=== PATIENT | male | born 1975 | race Caucasian/White ===

== ENCOUNTER 2022-04-26 09:53 | Emergency (ER) | payer SELFPAY ==
[~2022-04-26] VITALS: Ht 177.8 cm; Wt 148.2 kg
--- NOTE | 2022-04-26 10:26 | ED General ---
General Chief Complaint: General Problems/Pain Stated Complaint: WEAKNESS,FATIGUE Nursing Triage Note: PT AMB TO [facility] 6 WITH FATHER. PT STATED THAT HE HAS BEEN FATIGUED SINCE THE BEGIN OF SUMMER. PT STATED THAT HE HAS HAD SOB FOR A COUPLE WEEKS. Source of Information: Patient Exam Limitations: No Limitations History of Present Illness Date Seen by Provider: Apr 26, 2022 Time Seen by Provider: 10:00 Initial Comments 46-year-old male with no pertinent past medical history (does not see a doctor, so unsure of medical problems) coming in due to generalized fatigue which is constant, worsening, nothing seems to make better or worse. Is been going on for a couple months. Over the past couple weeks has developed increasing dyspnea as well which is worse with exertion. His father has noted that he has been falling asleep while driving, while sitting at dinner, and at seemingly random times. He denies any chest pain, fever, abdominal pain, nausea, vomiting, diarrhea, focal weakness or numbness, headache, or any other concerns. He says he believes he has gained around 10 pounds since the of summer. Is otherwise denying any other acute complaints. Does not take any medicines daily because he does not see a doctor. He endorses snoring at night and waking up multiple times overnight. He has regular brown stools and denies any bleeding that he knows of. Allergies and Home Medications Allergies Coded Allergies: No Known Drug Allergies (Unverified , 04/26/22) Patient Home Medication List Home Medication List Reviewed: Yes Review of Systems Review of Systems Constitutional: No fever EENTM: No blurred vision Respiratory: No cough; short of breath Cardiovascular: No chest pain Gastrointestinal: No abdominal pain Genitourinary: no symptoms reported Musculoskeletal: no symptoms reported Skin: no symptoms reported Psychiatric/Neurological: No Symptoms Reported Hematologic/Lymphatic: No Symptoms Reported Immunological/Allergic: no symptoms reported All Other Systems Reviewed Negative Unless Noted: Yes Past Tsrpchk-Lckcfh-Xwaxcq Hx Patient Social History Tobacco Use?: No Substance use?: No Alcohol Use?: Yes Alcohol Frequency: Once in a while Pt feels they are or have been: Unable to obtain Immunizations Up To Date Influenza Vaccine Up-to-Date: No; Not Current Physical Exam Vital Signs Vital Signs - First Documented 04/26/22 04/26/22 10:02 10:16 Temp 36.6 Pulse 83 Resp 18 B/P (MAP) 171/105 (127) Pulse Ox 93 O2 Delivery Nasal Cannula O2 Flow Rate 2.00 Capillary Refill : Less Than 3 Seconds Height, Weight, BMI Height: '" Weight: lbs. oz. kg; 46.00 BMI Method: General Appearance: No Apparent Distress, WD/WN Eyes: Bilateral Eye Normal Inspection HEENT: PERRL/EOMI, Normal ENT Inspection, Pharynx Normal Neck: Full Range of Motion, Normal Inspection, Non Tender, Supple Respiratory: Chest Non Tender, No Accessory Muscle Use, No Respiratory Distress, Other (difficult to hear clear breath sounds due to body habitus, no obvious wheezing) Cardiovascular: Regular Rate, Rhythm, Normal Peripheral Pulses Gastrointestinal: Normal Bowel Sounds, Non Tender, Soft; No Distended, No Guarding Back: Normal Inspection, No CVA Tenderness Extremity: Normal Capillary Refill, Normal Range of Motion, Non Tender, No Calf Tenderness, Pedal Edema Neurologic/Psychiatric: Alert, No Motor/Sensory Deficits, Normal Mood/Affect Skin: Normal Color, Warm/Dry Lymphatic: No Adenopathy Progress/Results/Core Measures Suspected Sepsis SIRS Temperature: Pulse: 83 Respiratory Rate: 18 Laboratory Tests 04/26/22 10:30: White Blood Count 8.1 Blood Pressure 171 /105 Mean: 127 Laboratory Tests 04/26/22 10:30: Creatinine 1.01, INR Comment 1.0, Platelet Count 243, Total Bilirubin 0.8 Results/Orders Lab Results Laboratory Tests Test 04/26/22 10:30 04/26/22 10:40 Range/Units White Blood Count 8.1 4.3-11.0 10^3/uL Red Blood Count 5.40 4.30-5.52 10^6/uL Hemoglobin 14.4 13.3-17.7 g/dL Hematocrit 48 40-54 % Mean Corpuscular Volume 88 80-99 fL Mean Corpuscular Hemoglobin 27 25-34 pg Mean Corpuscular Hemoglobin Concent 30 L 32-36 g/dL Red Cell Distribution Width 15.1 H 10.0-14.5 % Platelet Count 243 130-400 10^3/uL Mean Platelet Volume 9.6 9.0-12.2 fL Immature Granulocyte % (Auto) 0 % Neutrophils (%) (Auto) 65 42-75 % Lymphocytes (%) (Auto) 28 12-44 % Monocytes (%) (Auto) 5 0-12 % Eosinophils (%) (Auto) 1 0-10 % Basophils (%) (Auto) 1 0-10 % Neutrophils # (Auto) 5.2 1.8-7.8 10^3/uL Lymphocytes # (Auto) 2.3 1.0-4.0 10^3/uL Monocytes # (Auto) 0.4 0.0-1.0 10^3/uL Eosinophils # (Auto) 0.1 0.0-0.3 10^3/uL Basophils # (Auto) 0.0 0.0-0.1 10^3/uL Immature Granulocyte # (Auto) 0.0 0.0-0.1 10^3/uL Prothrombin Time 14.0 12.2-14.7 SEC INR Comment 1.0 0.8-1.4 Activated Partial Thromboplast Time 27 24-35 SEC D-Dimer 1.04 H 0.00-0.49 UG/ML Sodium Level 146 H 135-145 MMOL/L Potassium Level 4.0 3.6-5.0 MMOL/L Chloride Level 102 98-107 MMOL/L Carbon Dioxide Level 34 H 21-32 MMOL/L Anion Gap 10 5-14 MMOL/L Blood Urea Nitrogen 12 7-18 MG/DL Creatinine 1.01 0.60-1.30 MG/DL Estimat Glomerular Filtration Rate 93 BUN/Creatinine Ratio 12 Glucose Level 101 70-105 MG/DL Calcium Level 9.0 8.5-10.1 MG/DL Corrected Calcium 9.1 8.5-10.1 MG/DL Magnesium Level 2.2 1.6-2.4 MG/DL Total Bilirubin 0.8 0.1-1.0 MG/DL Aspartate Amino Transf (AST/SGOT) 20 5-34 U/L Alanine Aminotransferase (ALT/SGPT) 42 0-55 U/L Alkaline Phosphatase 79 40-136 U/L Troponin I < 0.028 <0.028 NG/ML B-Type Natriuretic Peptide 395.5 H <100.0 PG/ML Total Protein 6.9 6.4-8.2 GM/DL Albumin 3.9 3.2-4.5 GM/DL Lipase 19 8-78 U/L Influenza Type A (RT-PCR) Not Detected Not Detecte Influenza Type B (RT-PCR) Not Detected Not Detecte SARS-CoV-2 RNA (RT-PCR) Not Detected Not Detecte My Orders Orders - DIONICIO KELLY MD Bnp Pan (04/26/22 10:22) Influenza A And B By Pcr (04/26/22 10:22) Cbc With Automated Diff (04/26/22 10:22) Magnesium (04/26/22 10:22) Ekg Tracing (04/26/22 10:22) Comprehensive Metabolic Panel (04/26/22 10:22) Protime With Inr (04/26/22 10:22) Partial Thromboplastin Time (04/26/22 10:22) O2 (04/26/22 10:22) Monitor-Rhythm Ecg Trace Only (04/26/22 10:22) Ed Iv/Invasive Line Start (04/26/22 10:22) Lipase (04/26/22 10:22) Fibrin Degradation Products (04/26/22 10:22) Troponin I Pan (04/26/22 10:22) Covid 19 Inhouse Test (04/26/22 10:22) Ct Angio Chest W (04/26/22 11:18) Iohexol Injection (Omnipaque 350 Mg/Ml 1 (04/26/22 11:30) Ns (Ivpb) (Sodium Chloride 0.9% Ivpb Bag (04/26/22 11:30) Medications Given in ED Current Medications Medications Dose Ordered Sig/Sneha Route Start Time Stop Time Status Last Admin Dose Admin Iohexol 100 ml ONCE ONCE IV 04/26/22 11:30 04/26/22 11:31 DC 04/26/22 11:40 88 ML Sodium Chloride 100 ml ONCE ONCE IV 04/26/22 11:30 04/26/22 11:31 DC 04/26/22 11:40 70 ML Vital Signs/I&O 04/26/22 04/26/22 04/26/22 10:02 10:02 10:16 Temp 36.6 Pulse 83 Resp 18 B/P (MAP) 171/105 (127) Pulse Ox 93 O2 Delivery Nasal Cannula Nasal Cannula Nasal Cannula O2 Flow Rate 2.00 2.00 2.00 Capillary Refill : Less Than 3 Seconds Blood Pressure Mean: 127 Progress Note : Progress Note 46-year-old male with above history coming in due to fatigue, falling asleep easily on the day, and short of breath. ABCs were intact and vitals were stable on presentation although there was a moment he was mildly hypoxic to roughly 88%. This did resolve on its own. I personally ambulated the patient and his oxygen went up to 98%. Hemoglobin is normal, troponin negative, BNP only slightly elevated but no other signs of heart failure. EKG with no acute ischemic changes. D-dimer positive so CT chest was obtained and does have a small pleural effusion but not significant enough to cause any symptoms. I believe he suffers from sleep apnea that is undiagnosed since he does not have a PCP. He likely also has obesity hypoventilation. I will give him information on how to follow-up with [facility] since he does not have insurance ECG Initial ECG Impression Date: Apr 26, 2022 Initial ECG Impression Time: 10:36 Initial ECG Rate: 69 Initial ECG Rhythm: Normal Sinus Comment Narrow QRS, normal axis, no significant ST changes, T wave flattening in the precordial leads Diagnostic Imaging Diagonstic Imaging: CT Plain Films/CT/US/NM/MRI: chest Comments [facility], [place] NAME: TEO YOST Bob [facility] REC#: [id number] PT STATUS: REG ER : 1975 PHYSICIAN: DIONICIO KELLY MD ADMIT DATE: 04/26/22/ER Signed Date of Exam:04/26/22 CT ANGIO CHEST W EXAMINATION: CT angiography of the chest. TECHNIQUE: Contrast enhanced thin section helical images were obtained through the chest with intravenous contrast timed for the optimal opacification of the arterial structures per CTA protocol. Post-processing, reconstructions and interpretation of angiographic images of the vessels was performed. 3D MIP reconstructions were performed and reviewed. All CT scans use one or more of the following dose optimizing techniques: automated exposure control, MA and/or KvP adjustment based on a patient size and exam type, or iterative reconstruction. HISTORY: SOB, hypoxic, positive dimer COMPARISON: None available. FINDINGS: Vascular: No filling defects within the pulmonary arteries. Thoracic aorta is normal in caliber. Thyroid: The thyroid is normal. Mediastinum: Heart size is normal without significant pericardial effusion. No suspicious lymphadenopathy. Lungs and airways: No consolidation or pneumothorax. There is atelectasis within the dependent lungs. Trace bilateral pleural effusions. The airways are normal. Upper abdomen: The subphrenic structures are normal. Musculoskeletal: Degenerative changes of the spine without suspicious osseous lesion or compression fracture. IMPRESSION: 1. No findings of pulmonary embolus or other acute abnormality in the chest. 2. Trace bilateral pleural effusions with adjacent atelectasis. Dictated by: Dictated on workstation # [id number] Dict: 04/26/22 1145 Trans: 04/26/22 1156 [id number] [id number] Interpreted by: FARTUN GREENBERG DO Electronically signed by: FARTUN GREENBERG DO 04/26/22 1156 Departure Impression Primary Impression: Sleep apnea in adult Additional Impression: Obesity hypoventilation syndrome Disposition: HOME, SELF-CARE Condition: Stable Departure-Patient Inst. Decision time for Depature: 12:14 Referrals: [facility]/TASNEEM POWERS,LOCAL PHYSICIAN (PCP) Primary Care Physician Patient Instructions: Sleep Apnea (DC) Add. Discharge Instructions: I believe you have sleep apnea. Follow-up with [facility] to get established because your blood pressure was also high today. Discuss with them the symptoms you are having. You had a CT of your chest in the emergency department and it was negative for any type of blood clot. Your cardiac work-up was also unremarkable for any type of heart attack Work/School Note: Work Release Form Date Seen in the Emergency Department: Apr 26, 2022 Return to Work: Apr 27, 2022 Restrictions: No Restrictions DIONICIO KELLY MD Apr 26, 2022 10:26
[2022-04-26 10:41] LABS: BASOPHILS % (AUTO) 1 % (0-10); EOSINOPHILS # (AUTO) 0.1 10^3/uL (0.0-0.3); EOSINOPHILS % (AUTO) 1 % (0-10); HEMATOCRIT 48 % (40-54); HEMOGLOBIN 14.4 g/dL (13.3-17.7); LYMPHOCYTES # (AUTO) 2.3 10^3/uL (1.0-4.0); LYMPHOCYTES % (AUTO) 28 % (12-44); MEAN CORPUSCULAR HEMOGLOBIN 27 pg (25-34); MEAN CORPUSCULAR HGB CONC 30 g/dL (32-36); MEAN CORPUSCULAR VOLUME 88 fL (80-99); MEAN PLATELET VOLUME 9.6 fL (9.0-12.2); MONOCYTES # (AUTO) 0.4 10^3/uL (0.0-1.0); MONOCYTES % (AUTO) 5 % (0-12); NEUTROPHILS # (AUTO) 5.2 10^3/uL (1.8-7.8); NEUTROPHILS % (AUTO) 65 % (42-75); PLATELET COUNT 243 10^3/uL (130-400); WHITE BLOOD COUNT 8.1 10^3/uL (4.3-11.0)
[2022-04-26 10:53] LABS: ALBUMIN 3.9 GM/DL (3.2-4.5)
[2022-04-26 10:55] LABS: TOTAL PROTEIN 6.9 GM/DL (6.4-8.2)
[2022-04-26 10:57] LABS: BILIRUBIN,TOTAL 0.8 MG/DL (0.1-1.0)
[2022-04-26 10:59] LABS: CREATININE SERUM 1.01 MG/DL (0.60-1.30)
[2022-04-26 11:02] LABS: MAGNESIUM 2.2 MG/DL (1.6-2.4)
[2022-04-26] MEDS ORDERED: NS 100 ML (IVPB) BAG IV ONE ×2 (11:30)
[2022-04-26] MEDS ORDERED: IOHEXOL 350 MG/ML 100 ML (OMNIPAQUE 350) VIAL IV ONE ×2 (11:30)
[2022-04-26] MEDS ORDERED: HOLD METFORMIN - RECEIVED CONTRAST 20 ML VIAL IV SCH (11:30)
--- NOTE | 2022-04-26 11:51 | Diagnostic Imaging Report ---
EXAMINATION: CT angiography of the chest. TECHNIQUE: Contrast enhanced thin section helical images were obtained through the chest with intravenous contrast timed for the optimal opacification of the arterial structures per CTA protocol. Post-processing, reconstructions and interpretation of angiographic images of the vessels was performed. 3D MIP reconstructions were performed and reviewed. All CT scans use one or more of the following dose optimizing techniques: automated exposure control, MA and/or KvP adjustment based on a patient size and exam type, or iterative reconstruction. HISTORY: SOB, hypoxic, positive dimer COMPARISON: None available. FINDINGS: Vascular: No filling defects within the pulmonary arteries. Thoracic aorta is normal in caliber. Thyroid: The thyroid is normal. Mediastinum: Heart size is normal without significant pericardial effusion. No suspicious lymphadenopathy. Lungs and airways: No consolidation or pneumothorax. There is atelectasis within the dependent lungs. Trace bilateral pleural effusions. The airways are normal. Upper abdomen: The subphrenic structures are normal. Musculoskeletal: Degenerative changes of the spine without suspicious osseous lesion or compression fracture. IMPRESSION: 1. No findings of pulmonary embolus or other acute abnormality in the chest. 2. Trace bilateral pleural effusions with adjacent atelectasis. Dictated by: Dictated on workstation # [id number]
[2022-04-26 12:30] VITALS: BP 152/114
== END 2022-04-26 12:30 | disposition home or self-care (01) ==
LOC: ER 09:56
DX: G47.30 Sleep apnea, unspecified (principal); J90 Pleural effusion, not elsewhere classified; R79.0 Abnormal level of blood mineral; Z20.822 Contact with and (suspected) exposure to COVID-19; Z28.310 Unvaccinated for COVID-19
CPT/HCPCS: 36415; 71275; 80053; 83690; 83735; 83880; 84484; 85025; 85379; 85610; 85730; 87636; 93005; 93041

== ENCOUNTER → 2022-06-02 | Outpatient (CLI) | payer SELFPAY ==
[2022-06-02 13:56] VITALS: BP 156/94
--- NOTE | 2022-06-02 15:05 | Cardiology Stress Test Report ---
Stress Test Report Date of Procedure/Referring: Date of Procedure: Jun 02, 2022 PCP No,Local Physician Admitting Physician Admitting Physician: Attending Physician: Chivo Ridley DO Indications: CP Baseline Heart Rate: 78 Baseline Blood Pressure: Blood Pressure Systolic: 156 Blood Pressure Diastolic: 94 Baseline EKG: Baseline EKG: NSR Summary/Conclusion: Summary: In summary, the patient started exercising with a baseline heart rate, blood pressure and EKG mentioned above Patient was able to exercise for a total of 5 minutes on Milan protocol, METs 7 Maximum heart rate 150 Maximum blood pressure 204/112 Stress EKG, Minimal nondiagnostic changes Recovery EKG , Return to baseline Conclusion: 1. Good exercise tolerance for a total of 5 minutes on Milan protocol, 7 METs, achieving 86 percent of maximum expected heart rate 2. Minimal nondiagnostic EKG changes with exercise returned to baseline during recovery 3. No arrhythmia was noted 4. Hypertensive response to exercise with peak blood pressure 204/112 return to baseline during recovery Copy Copies To 1: [facility]/RENE VEGA MD Jun 02, 2022 15:05
== END ==
LOC: CARD 13:28
PROVIDERS: ATTEND Pediatrics
DX: R07.89 Other chest pain (principal)
CPT/HCPCS: 93017

== ENCOUNTER 2022-06-06 11:02 | Inpatient (IN) | payer SELFPAY ==
[~2022-06-06] VITALS: Ht 177 cm; Wt 135.5 kg
[2022-06-06 11:38] LABS: BASOPHILS % (AUTO) 0 % (0-10); EOSINOPHILS % (AUTO) 0 % (0-10); HEMATOCRIT 47 % (40-54); HEMOGLOBIN 13.8 g/dL (13.3-17.7); LYMPHOCYTES # (AUTO) 1.9 10^3/uL (1.0-4.0); LYMPHOCYTES % (AUTO) 21 % (12-44); MEAN CORPUSCULAR HEMOGLOBIN 25 pg (25-34); MEAN CORPUSCULAR HGB CONC 29 g/dL (32-36); MEAN CORPUSCULAR VOLUME 83 fL (80-99); MEAN PLATELET VOLUME 9.4 fL (9.0-12.2); MONOCYTES # (AUTO) 0.8 10^3/uL (0.0-1.0); MONOCYTES % (AUTO) 9 % (0-12); NEUTROPHILS # (AUTO) 6.1 10^3/uL (1.8-7.8); NEUTROPHILS % (AUTO) 69 % (42-75); PLATELET COUNT 273 10^3/uL (130-400)
[2022-06-06 11:42] LABS: ALBUMIN 3.9 GM/DL (3.2-4.5); POTASSIUM 4.6 MMOL/L (3.6-5.0)
[2022-06-06 11:44] LABS: TOTAL PROTEIN 6.6 GM/DL (6.4-8.2)
[2022-06-06 11:46] LABS: BILIRUBIN,TOTAL 1.2 MG/DL (0.1-1.0)
--- NOTE | 2022-06-06 11:47 | ED General ---
General Chief Complaint: General Problems/Pain Stated Complaint: SWOLLEN SCROTUM Nursing Triage Note: PT PRESENTS TO ED WITH COMPLAINTS OF INCREASED SCROTAL SWELLING X 2WEEKS BUT WORSE THE PAST COUPLE DAYS AND DECREASE URINATION. PT ALSO REPORTS INCREASE IN GENERALIZED SWELLING. Source of Information: Patient Exam Limitations: No Limitations History of Present Illness Date Seen by Provider: Jun 06, 2022 Time Seen by Provider: 11:25 Initial Comments Patient presents to the emergency department for scrotal swelling and decreased urine output. States that he was recently started on Losartan and had an increase in the dosage. For the past few days he reports that he has hardly had any urine output. Reports that he was urinating fine until they increased the dosage of the Losartan. Denies history of CHF that he is aware of. Denies chest pain. Does have some shortness of breath with exertion. His sister states that in the past 6 months she has noticed how much more swollen he is. Timing/Duration: Getting Worse Associated Systoms: No Chest Pain, No Cough, No Diaphoresis, No Fever/Chills, No Nausea/Vomiting; Shortness of Air Allergies and Home Medications Allergies Coded Allergies: No Known Drug Allergies (Unverified , 04/26/22) Patient Home Medication List Home Medication List Reviewed: Yes Review of Systems Review of Systems Constitutional: No chills, No diaphoresis, No dizziness, No fever, No malaise, No weakness EENTM: no symptoms reported Respiratory: No cough; dyspnea on exertion; No orthopnea, No stridor, No wheezing Cardiovascular: No chest pain; edema; No palpitations Gastrointestinal: No abdominal pain, No diarrhea, No nausea, No vomiting Genitourinary: decreased output; No dysuria, No frequency Musculoskeletal: No back pain; joint swelling Skin: No pruritus, No rash All Other Systems Reviewed Negative Unless Noted: Yes Past Rzccrmi-Oabuwj-Vaijsh Hx Patient Social History Tobacco Use?: No Substance use?: No Alcohol Use?: Yes Alcohol Frequency: Once in a while Pt feels they are or have been: No Past Medical History Surgery/Hospitalization HX: PMH: PREDIABTIC, HTN, SLEEP APNEA Family Medical History Reviewed Nursing Family Hx Physical Exam Vital Signs Vital Signs - First Documented 06/06/22 11:25 Temp 37.1 Pulse 85 Resp 20 B/P (MAP) 155/96 (115) Pulse Ox 94 O2 Delivery Nasal Cannula O2 Flow Rate 2.00 Capillary Refill : Less Than 3 Seconds Height, Weight, BMI Height: '" Weight: lbs. oz. kg; 43.00 BMI Method: General Appearance: No Apparent Distress, WD/WN HEENT: Pharynx Normal, Moist Mucous Membranes Neck: Full Range of Motion, Normal Inspection, Non Tender Respiratory: Chest Non Tender, Lungs Clear, No Accessory Muscle Use, No Respiratory Distress, Decreased Breath Sounds (left sided) Cardiovascular: Regular Rate, Rhythm Gastrointestinal: Normal Bowel Sounds, Non Tender, Soft Genital/Rectal: Other (significant scrotal swelling) Back: Normal Inspection, No CVA Tenderness Extremity: Normal Range of Motion, Non Tender, No Calf Tenderness, Pedal Edema, Swelling (generalized lower extremity swelling) Neurologic/Psychiatric: Alert, Oriented x3 Skin: Normal Color, Warm/Dry Progress/Results/Core Measures Suspected Sepsis SIRS Temperature: Pulse: 85 Respiratory Rate: 20 Laboratory Tests 06/06/22 11:22: White Blood Count 9.0 Blood Pressure 155 /96 Mean: 115 Laboratory Tests 06/06/22 11:22: Creatinine 1.30, INR Comment 1.1, Platelet Count 273, Total Bilirubin 1.2H Results/Orders Lab Results Laboratory Tests Test 06/06/22 11:22 06/06/22 12:10 Range/Units White Blood Count 9.0 4.3-11.0 10^3/uL Red Blood Count 5.64 H 4.30-5.52 10^6/uL Hemoglobin 13.8 13.3-17.7 g/dL Hematocrit 47 40-54 % Mean Corpuscular Volume 83 80-99 fL Mean Corpuscular Hemoglobin 25 25-34 pg Mean Corpuscular Hemoglobin Concent 29 L 32-36 g/dL Red Cell Distribution Width 15.9 H 10.0-14.5 % Platelet Count 273 130-400 10^3/uL Mean Platelet Volume 9.4 9.0-12.2 fL Immature Granulocyte % (Auto) 0 % Neutrophils (%) (Auto) 69 42-75 % Lymphocytes (%) (Auto) 21 12-44 % Monocytes (%) (Auto) 9 0-12 % Eosinophils (%) (Auto) 0 0-10 % Basophils (%) (Auto) 0 0-10 % Neutrophils # (Auto) 6.1 1.8-7.8 10^3/uL Lymphocytes # (Auto) 1.9 1.0-4.0 10^3/uL Monocytes # (Auto) 0.8 0.0-1.0 10^3/uL Eosinophils # (Auto) 0.0 0.0-0.3 10^3/uL Basophils # (Auto) 0.0 0.0-0.1 10^3/uL Immature Granulocyte # (Auto) 0.0 0.0-0.1 10^3/uL Prothrombin Time 14.9 H 12.2-14.7 SEC INR Comment 1.1 0.8-1.4 Activated Partial Thromboplast Time 28 24-35 SEC Sodium Level 144 135-145 MMOL/L Potassium Level 4.6 3.6-5.0 MMOL/L Chloride Level 104 98-107 MMOL/L Carbon Dioxide Level 27 21-32 MMOL/L Anion Gap 13 5-14 MMOL/L Blood Urea Nitrogen 19 H 7-18 MG/DL Creatinine 1.30 0.60-1.30 MG/DL Estimat Glomerular Filtration Rate 69 BUN/Creatinine Ratio 15 Glucose Level 101 70-105 MG/DL Calcium Level 9.0 8.5-10.1 MG/DL Corrected Calcium 9.1 8.5-10.1 MG/DL Magnesium Level 2.2 1.6-2.4 MG/DL Total Bilirubin 1.2 H 0.1-1.0 MG/DL Aspartate Amino Transf (AST/SGOT) 189 H 5-34 U/L Alanine Aminotransferase (ALT/SGPT) 178 H 0-55 U/L Alkaline Phosphatase 72 40-136 U/L Myoglobin 73.3 10.0-92.0 NG/ML Troponin I < 0.028 <0.028 NG/ML B-Type Natriuretic Peptide 743.3 H <100.0 PG/ML Total Protein 6.6 6.4-8.2 GM/DL Albumin 3.9 3.2-4.5 GM/DL Blood Gas Puncture Site R WRIST Blood Gas Patient Temperature 37.2 Arterial Blood pH 7.30 *L 7.37-7.43 Arterial Blood Partial Pressure CO2 70 H 35-45 MMHG Arterial Blood Partial Pressure O2 63 L 79-93 MMHG Arterial Blood HCO3 34 H 23-27 MMOL/L Arterial Blood Total CO2 35.8 H 21.0-31.0 MMOL/L Arterial Blood Oxygen Saturation 91 L 94-100 % Arterial Blood Base Excess 7.5 H -2.5-2.5 MMOL/L Hasmukh Test YES-POS Blood Gas Ventilator Setting NO Blood Gas Inspired Oxygen 4L My Orders Orders - JUANITA LUCIANO APRN Cbc With Automated Diff (06/06/22 11:29) Magnesium (06/06/22 11:29) Chest 1 View, Ap/Pa Only (06/06/22 11:29) Ekg Tracing (06/06/22 11:29) Comprehensive Metabolic Panel (06/06/22 11:29) Myoglobin Serum (06/06/22 11:29) Protime With Inr (06/06/22 11:) Partial Thromboplastin Time (06/06/22 11:) O2 (06/06/22 11:) Monitor-Rhythm Ecg Trace Only (06/06/22 11:29) Lipid Panel (06/07/22 06:00) Ed Iv/Invasive Line Start (06/06/22 11:29) Bnp Brooks (06/06/22 11:29) Troponin I Pan (06/06/22 11:29) Arterial Blood Gas (06/06/22 12:06) Pittman Cath (06/06/22 12:33) Bipap (Bilevel) Set Up (06/06/22 12:33) Furosemide Injection (Lasix Injection) (06/06/22 12:45) Ed Admission (Communication) (06/06/22 13:13) Medications Given in ED Current Medications Medications Dose Ordered Sig/Sneha Route Start Time Stop Time Status Last Admin Dose Admin Furosemide 40 mg ONCE ONCE IVP 06/06/22 12:45 06/06/22 12:46 DC 06/06/22 12:45 40 MG Vital Signs/I&O 06/06/22 06/06/22 06/06/22 06/06/22 11:25 11:25 12:21 12:47 Temp 37.1 Pulse 85 72 Resp 20 21 B/P (MAP) 155/96 (115) Pulse Ox 94 90 96 95 O2 Delivery Nasal Cannula Room Air OxyMask O2 Flow Rate 2.00 10.00 30.00 Capillary Refill : Less Than 3 Seconds Blood Pressure Mean: 115 Progress Note : Progress Note Patient arrives to the ER for increasing bilateral lower extremity swelling, scrotal swelling and decreased urinary output. 1235: Reviewed CXR, labs and ABGs with patient and family. Is currently on 12 liters via simple mask to keep his oxygen saturations greater then 90%. Will have RT placed patient on bipap, pittman cather placed and given 40mg of Lasix IV. Patient agreeable to plan of care at this time. ECG Initial ECG Impression Date: Jun 06, 2022 Initial ECG Impression Time: 11:43 Initial ECG Rate: 69 Initial ECG Rhythm: Normal Sinus Initial ECG Intervals: Normal Initial ECG Impression: Normal Diagnostic Imaging Diagonstic Imaging: Xray Plain Films/CT/US/NM/MRI: chest Comments NAME: TEO YOST [facility] REC#: [id number] PT STATUS: REG ER : 1975 PHYSICIAN: JUANITA LUCIANO APRN ADMIT DATE: 06/06/22/ER Draft Date of Exam:06/06/22 CHEST 1 VIEW, AP/PA ONLY INDICATION: Chest pain. TECHNIQUE: Single-view chest at 12:32 p.m. CORRELATION STUDY: None. FINDINGS: Heart size is enlarged. There is presence of pulmonary vascular congestion and mild perihilar edema. Particularly, the left lung is somewhat obscured and there is overall hypoventilation. Definitive infiltrate is not suggested. IMPRESSION: 1. Likely underlying edema. This includes perivascular congestion and perihilar edema. Follow-up imaging, if clinically warranted. Dictated on workstation # [id number] Dict: 06/06/22 1233 Trans: 06/06/22 1252 [id number] Interpreted by: XAVIER HAMILTON DO Electronically signed by: Departure Communication (Admissions) Time/Spoke to Admitting Phy: 12:[address] Calvo in regards to patient and he accepted patient for admission to step down unit. Impression Primary Impression: CHF (congestive heart failure) Qualified Codes: I50.9 - Heart failure, unspecified Disposition: ADMITTED INPATIENT Condition: Stable Admissions Decision to Admit Reason: Admit from ER (General) Decision to Admit/Date: Jun 06, 2022 Time/Decision to Admit Time: 12:58 Departure-Patient Inst. Referrals: DELORIS GREEN DO (PCP/Family) Primary Care Physician JUANITA LUCIANO APRN Jun 06, 2022 11:47
[2022-06-06 11:48] LABS: CREATININE SERUM 1.3 MG/DL (0.60-1.30)
[2022-06-06 11:51] LABS: MAGNESIUM 2.2 MG/DL (1.6-2.4)
[2022-06-06 12:15] LABS: ABG BASE EXCESS 7.5 MMOL/L (-2.5-2.5); ABG OXYGEN SATURATION 91 % (94-100); ABG PCO2 70 MMHG (35-45); ABG PO2 63 MMHG (79-93); ABG TCO2 35.8 MMOL/L (21.0-31.0)
[2022-06-06 12:18] LABS: ALLENS TEST YES-POS; INSPIRED O2 4L; PATIENT TEMP 37.2; VENTILATOR NO
[2022-06-06] MEDS ORDERED: FUROSEMIDE 40 MG/4 ML INJ (LASIX) IVP ONE (12:45)
[2022-06-06 12:47] VITALS: BP 150/109
--- NOTE | 2022-06-06 12:53 | Diagnostic Imaging Report ---
INDICATION: Chest pain. TECHNIQUE: Single-view chest at 12:32 p.m. CORRELATION STUDY: None. FINDINGS: Heart size is enlarged. There is presence of pulmonary vascular congestion and mild perihilar edema. Particularly, the left lung is somewhat obscured and there is overall hypoventilation. Definitive infiltrate is not suggested. IMPRESSION: 1. Likely underlying edema. This includes perivascular congestion and perihilar edema. Follow-up imaging, if clinically warranted. Dictated by: Dictated on workstation # [id number]
[2022-06-06 12:57] LABS: INR 1.1 (0.8-1.4); PROTHROMBIN TIME PATIENT 14.9 SEC (12.2-14.7)
[2022-06-06] MEDS ORDERED: CATHETER FLUSH 10 ML SYR IV PRN (14:00)
[2022-06-06] MEDS: POTASSIUM CL 10 MEQ/50 ML IVPB (PRE-MIX) IV SCH ×2 (15:16→17:05)
[2022-06-06] MEDS: CATHETER FLUSH 10 ML SYR IV SCH ×2 (15:17→21:17)
--- NOTE | 2022-06-06 15:45 | Tele-ICU Consult ---
Progress Note 46 y/o with hx of HTN presents with scrotal swellling and peripheral edema' CXR: heart size is enlarged. There is presence of pulmonary vascular congestion and mild perihilar edema. Particularly, the left lung is somewhat obscured and there is overall hypoventilation. Definitive infiltrate is not suggested. IMPRESSION: 1. Likely underlying edema. This includes perivascular congestion and perihilar edema. Follow-up imaging, if clinically warranted. PLAN: ICU admission Diuersis Focused Exam Height, Weight, BMI Height: '" Weight: lbs. oz. kg; 43.09 BMI Method: Labs Laboratory Tests 06/06/22 11:22 Results Results/Procedures Labs Laboratory Tests 06/06/22 11:22 Patient resulted labs reviewed. Results Labs Labs Laboratory Tests 06/06/22 11:22: White Blood Count 9.0, Red Blood Count 5.64H, Hemoglobin 13.8, Hematocrit 47, Mean Corpuscular Volume 83, Mean Corpuscular Hemoglobin 25, Mean Corpuscular Hemoglobin Concent 29L, Red Cell Distribution Width 15.9H, Platelet Count 273, Mean Platelet Volume 9.4, Immature Granulocyte % (Auto) 0, Neutrophils (%) (Auto) 69, Lymphocytes (%) (Auto) 21, Monocytes (%) (Auto) 9, Eosinophils (%) (Auto) 0, Basophils (%) (Auto) 0, Neutrophils # (Auto) 6.1, Lymphocytes # (Auto) 1.9, Monocytes # (Auto) 0.8, Eosinophils # (Auto) 0.0, Basophils # (Auto) 0.0, Immature Granulocyte # (Auto) 0.0, Prothrombin Time 14.9H, INR Comment 1.1, Activated Partial Thromboplast Time 28, Sodium Level 144, Potassium Level 4.6, Chloride Level 104, Carbon Dioxide Level 27, Anion Gap 13, Blood Urea Nitrogen 19H, Creatinine 1.30, Estimat Glomerular Filtration Rate 69, BUN/Creatinine Ratio 15, Glucose Level 101, Calcium Level 9.0, Corrected Calcium 9.1, Magnesium Level 2.2, Total Bilirubin 1.2H, Aspartate Amino Transf (AST/SGOT) 189H, Alanine Aminotransferase (ALT/SGPT) 178H, Alkaline Phosphatase 72, Myoglobin 73.3, Troponin I < 0.028, B-Type Natriuretic Peptide 743.3H, Total Protein 6.6, Albumin 3.9 06/06/22 12:10: Blood Gas Puncture Site R WRIST, Blood Gas Patient Temperature 37.2, Arterial Blood pH 7.30*L, Arterial Blood Partial Pressure CO2 70H, Arterial Blood Partial Pressure O2 63L, Arterial Blood HCO3 34H, Arterial Blood Total CO2 35.8H, Arterial Blood Oxygen Saturation 91L, Arterial Blood Base Excess 7.5H, Hasmukh Test YES-POS, Blood Gas Ventilator Setting NO, Blood Gas Inspired Oxygen 4L BRITANY OLIVEROS MD Jun 06, 2022 15:45
[2022-06-06] MEDS ORDERED: LOSARTAN 50 MG (COZAAR) TAB PO NR (16:30)
[2022-06-06] MEDS: FUROSEMIDE 40 MG (LASIX) TAB PO SCH (17:05)
[2022-06-06 18:55] VITALS: BP 158/109
[2022-06-06 21:55] VITALS: BP 158/92
[2022-06-07] VITALS (10 sets, daily range): BP systolic 99–171; BP diastolic 53–109
[2022-06-07] MEDS ORDERED: SUCCINYLCHOLINE INJ 100 MG/5 ML SYR/VIAL IV STA (04:36)
[2022-06-07] MEDS ORDERED: MIDAZOLAM 5 MG/5 ML (VERSED) VIAL IV STA (04:36)
[2022-06-07 04:47] LABS: ABG OXYGEN SATURATION 96 % (94-100); ABG PO2 104 MMHG (79-93)
[2022-06-07 04:50] LABS: ABG PH 7.02 (7.37-7.43)
[2022-06-07 04:51] LABS: ALLENS TEST NO; PATIENT TEMP 37; VENTILATOR NO
[2022-06-07 05:01] LABS: POTASSIUM 4.6 MMOL/L (3.6-5.0)
[2022-06-07 05:02] LABS: CALCIUM 9.3 MG/DL (8.5-10.1)
[2022-06-07 05:07] LABS: CREATININE SERUM 1.13 MG/DL (0.60-1.30)
[2022-06-07] MEDS ORDERED: MIDAZOLAM 5 MG/5 ML (VERSED) VIAL IVP ONE (05:13)
[2022-06-07] MEDS ORDERED: SUCCINYLCHOLINE INJ 100 MG/5 ML SYR/VIAL INJ ONE ×2 (05:13→09:20)
[2022-06-07 05:16] LABS: CHOLESTEROL 130 MG/DL (< 200); HDL CHOLESTEROL 25 MG/DL (40-60); TRIGLYCERIDES 102 MG/DL (<150); VLDL CHOLESTEROL 20 MG/DL (5-40)
--- NOTE | 2022-06-07 05:33 | Anesthesia-Procedure Note ---
Procedures/Interventions Procedure Start/Stop/Diagnosis Date of Procedure: Jun 07, 2022 Start Time: 05:05 Stop Time: 05:20 Intubation RSI: Yes 100% pre-Ox, [id number]: Yes Intubation Method: orotracheal Videoscope used: Yes Grade View: 2 Medications: Succinylcholine, Versed Mask Ventilation: positive Positive End Tide CO2: Yes Breath Sounds after Intubation: bilateral-equal ETT Securred @ (cm): 23 Intubated with ease: No Post Procedure Intubated x 2 attempts. + bbs, +etco2/color change. Progress Called for emergency intubation. Intubation had been attempted an unknown amount of times prior to my arrival. Face, nose, and mouth bloody. Use of BVM with nasal trumpet to right nare. Spo2 92%. Given update on medications given. Stepped to head of bed, 1st intubation attempt- Suction of oropharynx, upon advacement of Linda, patient coughed and obstructed view with secretions. Attempt aborted. More suctioning. Back to BVM. More medication orders given by . Once Patient obtunded 2nd attempt for intubation with glydescope. Grade 2 visualization with CCP. Passed vocal cords with some difficulty and twisting of ETT. Cuff up. ETT 23cm at the lip. + ETCO2/color change, + BBS. Secured. Care turned over to: SUPERVISOR [employer]'s and RT staff. ALEXEY ROUSSEAU CRNA Jun 07, 2022 05:33
--- NOTE | 2022-06-07 05:37 | Tele-ICU Progress Note ---
Subjective Date Seen by a Provider: Jun 07, 2022 Time Seen by a Provider: 05:32 Subjective/Events-last exam 46 yo M in pulm edema, developed marked SpO2 drop to 50's and resp distress and was electively intubated, Now on AC 22, Vt 500 FIO2 90%, PEEP 3, Vent is working ok and not alarming, Intubation was difficult due to throat sweling, has some epistaxsis now will write orders for vent, sedation, ABG and CXR for ET placement Sepsis Event Evaluation Height, Weight, BMI Height: '" Weight: lbs. oz. kg; 43.09 BMI Method: Exam Exam Patient acknowledged, consented, and participated in this virtual visit which was conducted using real time audio/video Vital Signs Date Time Temp Pulse Resp B/P (MAP) Pulse Ox O2 Delivery O2 Flow Rate FiO2 06/07/22 04:00 NIV Bilevel 55 06/07/22 02:16 95 21 92 55.00 06/07/22 02:00 76 28 160/95 (116) 90 NIV Bilevel 55.00 06/07/22 01:00 75 28 164/99 (120) 93 NIV Bilevel 55.00 06/07/22 01:00 76 06/07/22 00:06 36.7 06/07/22 00:00 75 25 159/87 (111) 95 NIV Bilevel 55.00 06/06/22 23:59 NIV Bilevel 55 06/06/22 23:00 101 21 147/89 (108) 96 NIV Bilevel 55.00 06/06/22 22:00 83 20 171/96 (121) 99 NIV Bilevel 55.00 06/06/22 21:55 98 17 96 55.00 06/06/22 21:00 75 22 175/103 (127) 97 NIV Bilevel 55.00 06/06/22 20:06 81 22 171/111 (131) 97 NIV Bilevel 55.00 06/06/22 20:00 NIV Bilevel 55 06/06/22 19:06 37.1 06/06/22 19:00 76 13 174/108 (130) 98 NIV Bilevel 55.00 06/06/22 19:00 75 06/06/22 18:55 83 19 97 55.00 06/06/22 18:19 94 NIV Bilevel 45.00 06/06/22 16:00 99 OxyMask 5.00 06/06/22 16:00 77 25 171/121 (138) 97 OxyMask 10.00 06/06/22 15:55 36.1 06/06/22 14:50 77 06/06/22 14:46 97 OxyMask 10.00 06/06/22 14:15 77 10 159/111 (127) 96 NIV Bilevel 06/06/22 13:50 76 18 162/114 96 06/06/22 12:47 72 21 95 30.00 06/06/22 12:21 96 OxyMask 10.00 06/06/22 11:25 37.1 85 20 155/96 (115) 90 Room Air 06/06/22 11:25 94 Nasal Cannula 2.00 I & O 06/07/22 06:59 Intake Total 1650 ml Output Total 9000 ml Balance -7350 ml Height & Weight Height: '" Weight: lbs. oz. kg; 43.09 BMI Method: General Appearance: No Apparent Distress, WD/WN HEENT: Pharynx Normal, Moist Mucous Membranes Neck: Full Range of Motion, Normal Inspection, Non Tender Respiratory: Chest Non Tender, Lungs Clear, No Accessory Muscle Use, No Respiratory Distress, Decreased Breath Sounds (left sided), Rhonci Cardiovascular: Regular Rate, Rhythm Capillary Refill: Less Than 3 Seconds Gastrointestinal: normal bowel sounds, non tender Extremity: Normal Range of Motion, Non Tender, No Calf Tenderness, Pedal Edema, Swelling (generalized lower extremity swelling) Neurologic/Psychiatric: Alert, Oriented x3, Other (sedatsed) Skin: Normal Color, Warm/Dry Results Lab Laboratory Tests 06/06/22 11:22 06/07/22 04:38 Assessment/Plan Assessment/Plan continue on vent, check ABG and CXR, sedate if needed Critical Care: Ventilator Management Time spent with patient (mins): 30 BRITANY JONES MD Jun 07, 2022 05:37
[2022-06-07 05:40] LABS: ABG BASE EXCESS 12.6 MMOL/L (-2.5-2.5); ABG OXYGEN SATURATION 97 % (94-100); ABG PO2 94 MMHG (79-93); ALLENS TEST YES-POS; INSPIRED O2 90%; PATIENT TEMP 37; VENTILATOR YES
[2022-06-07 05:43] LABS: ABG PCO2 101 MMHG (35-45); ABG PH 7.23 (7.37-7.43); ABG TCO2 43.5 MMOL/L (21.0-31.0)
[2022-06-07] MEDS: CATHETER FLUSH 10 ML SYR IV SCH ×3 (06:02→22:54)
--- NOTE | 2022-06-07 06:06 | Diagnostic Imaging Report ---
EXAMINATION: Chest 1 view HISTORY: Tube placement COMPARISON: 06/06/2022 FINDINGS: Heart size and pulmonary vasculature are stable. Increasing interstitial and airspace opacities throughout both lungs compared to prior exam. May be a trace left pleural effusion. Interval placement of an endotracheal tube above the kaleb. Enteric catheter is present coursing below the diaphragm. No pneumothorax. The osseous structures are intact. IMPRESSION: 1. Increasing airspace opacities throughout both lungs compared to prior exam. 2. Interval placement of an endotracheal tube and enteric catheter. Dictated by: Dictated on workstation # [id number]
--- NOTE | 2022-06-07 06:17 | Tele-ICU Consult ---
History of Present Illness History of Present Illness Date Seen by Provider: Jun 07, 2022 Time Seen by Provider: 06:13 Date of Admission called for ABG, pH has improved from 7.02 to 7.23, pCO2 now 101, pO2 84 on AC 22, Vt 500 FiO2 70% vent is not alarming, does have a large amount of secretions CXR post intubation shows ET above kaleb, NG tube ok, no PMNTX will keep on same vent settings and repeat ABG in one hour Allergies and Home Medications Allergies Coded Allergies: No Known Drug Allergies (Unverified , 04/26/22) Past Medical/Social/Family Hx Patient Social History Tobacco Use?: No Use of E-Cig and/or Vaping dev: No Substance use?: No Alcohol Use?: Yes Alcohol type: Beer Alcohol Frequency: Once in a while Pt stated abuse/neglect: No Current Status Advance Directives: No Communicates: Verbally Primary Language: Portuguese Preferred Spoken Language: Portuguese Is interpretation needed?: No Implanted or Applied Medical D: None Review of Systems Constitutional: see HPI EENTM: see HPI Respiratory: see HPI Cardiovascular: see HPI Gastrointestinal: see HPI Genitourinary: see HPI Musculoskeletal: see HPI Skin: see HPI Psychiatric/Neurological: See HPI Focused Exam Height, Weight, BMI Height: '" Weight: lbs. oz. kg; 43.09 BMI Method: Exam Exam Patient acknowledged, consented, and participated in this virtual visit which was conducted using real time audio/video Vital Signs Date Time Temp Pulse Resp B/P (MAP) Pulse Ox O2 Delivery O2 Flow Rate FiO2 06/07/22 06:00 88 22 165/115 (132) 91 Mechanical Ventilator 90.00 06/07/22 05:59 85 22 100 100 06/07/22 05:15 Mechanical Ventilator 90.00 06/07/22 05:00 101 9 133/102 (112) 92 NIV Bilevel 55.00 06/07/22 04:00 NIV Bilevel 55 06/07/22 04:00 94 28 148/91 (110) 90 NIV Bilevel 55.00 06/07/22 03:00 77 28 172/98 (122) 92 NIV Bilevel 55.00 06/07/22 02:16 95 21 92 55.00 06/07/22 02:00 76 28 160/95 (116) 90 NIV Bilevel 55.00 06/07/22 01:00 75 28 164/99 (120) 93 NIV Bilevel 55.00 06/07/22 01:00 76 06/07/22 00:06 36.7 06/07/22 00:00 75 25 159/87 (111) 95 NIV Bilevel 55.00 06/06/22 23:59 NIV Bilevel 55 06/06/22 23:00 101 21 147/89 (108) 96 NIV Bilevel 55.00 06/06/22 22:00 83 20 171/96 (121) 99 NIV Bilevel 55.00 06/06/22 21:55 98 17 96 55.00 06/06/22 21:00 75 22 175/103 (127) 97 NIV Bilevel 55.00 06/06/22 20:06 81 22 171/111 (131) 97 NIV Bilevel 55.00 06/06/22 20:00 NIV Bilevel 55 06/06/22 19:06 37.1 06/06/22 19:00 76 13 174/108 (130) 98 NIV Bilevel 55.00 06/06/22 19:00 75 06/06/22 18:55 83 19 97 55.00 06/06/22 18:19 94 NIV Bilevel 45.00 06/06/22 16:00 99 OxyMask 5.00 06/06/22 16:00 77 25 171/121 (138) 97 OxyMask 10.00 06/06/22 15:55 36.1 06/06/22 14:50 77 06/06/22 14:46 97 OxyMask 10.00 06/06/22 14:15 77 10 159/111 (127) 96 NIV Bilevel 06/06/22 13:50 76 18 162/114 96 06/06/22 12:47 72 21 95 30.00 06/06/22 12:21 96 OxyMask 10.00 06/06/22 11:25 37.1 85 20 155/96 (115) 90 Room Air 06/06/22 11:25 94 Nasal Cannula 2.00 I & O 06/07/22 07:00 Intake Total 1650 ml Output Total 9000 ml Balance -7350 ml Height & Weight Height: '" Weight: lbs. oz. kg; 43.09 BMI Method: General Appearance: No Apparent Distress, WD/WN HEENT: Pharynx Normal, Moist Mucous Membranes Neck: Full Range of Motion, Normal Inspection, Non Tender Respiratory: Chest Non Tender, Lungs Clear, No Accessory Muscle Use, No Respiratory Distress, Decreased Breath Sounds (left sided), Rhonci Cardiovascular: Regular Rate, Rhythm Capillary Refill: Less Than 3 Seconds Gastrointestinal: normal bowel sounds, non tender Extremity: Normal Range of Motion, Non Tender, No Calf Tenderness, Pedal Edema, Swelling (generalized lower extremity swelling) Neurologic/Psychiatric: Alert, Oriented x3, Other (sedatsed) Skin: Normal Color, Warm/Dry Results Lab Laboratory Tests 06/06/22 11:22 06/07/22 04:38 Assessment/Plan Assessment/Plan hypercarbic resp failure, ABG in one hour, leave on same vent settings BRITANY JONES MD Jun 07, 2022 06:17
[2022-06-07] MEDS: PROPOFOL DRIP (ICU) 100 ML IV SCH ×8 (06:22→22:54)
--- NOTE | 2022-06-07 06:54 | Occ Therapy Progress Note ---
Therapy Progress Note OT orders received. Pt currently intubated. OT to monitor pt's status then will initiate treatment when pt is medically stable and able to actively participate in skilled therapy. ESTEPHANIE GARCIA Jun 07, 2022 06:54
--- NOTE | 2022-06-07 07:23 | Physical Therapy Progress Note ---
Therapy Progress Note Patient currently sedated and intubated. PT will continue to monitor patient status and initiate treatment when patient is medically stable and able to actively participate with skilled therapy. KARISSA VILLARREAL PT Jun 07, 2022 07:23
[2022-06-07] MEDS ORDERED: FUROSEMIDE 40 MG/4 ML INJ (LASIX) IVP SCH (07:30)
[2022-06-07] MEDS: fentaNYL DRIP PRE-MIX 250 ML IV SCH ×2 (08:57→20:36)
[2022-06-07] MEDS: LOSARTAN 50 MG (COZAAR) TAB PO SCH (08:58)
[2022-06-07] MEDS ORDERED: MIDAZOLAM 5 MG/5 ML (VERSED) VIAL IJ ONE (09:20)
[2022-06-07] MEDS ORDERED: RT-ALBUTEROL SULF 2.5 MG/3 ML PRE-MIX VIAL ONE (09:58)
[2022-06-07 09:59] LABS: BASOPHILS % (AUTO) 0 % (0-10); EOSINOPHILS % (AUTO) 0 % (0-10); HEMATOCRIT 47 % (40-54); HEMOGLOBIN 13.8 g/dL (13.3-17.7); LYMPHOCYTES # (AUTO) 0.8 10^3/uL (1.0-4.0); LYMPHOCYTES % (AUTO) 7 % (12-44); MEAN CORPUSCULAR HEMOGLOBIN 25 pg (25-34); MEAN CORPUSCULAR HGB CONC 29 g/dL (32-36); MEAN CORPUSCULAR VOLUME 84 fL (80-99); MEAN PLATELET VOLUME 9.3 fL (9.0-12.2); MONOCYTES # (AUTO) 0.8 10^3/uL (0.0-1.0); MONOCYTES % (AUTO) 7 % (0-12); NEUTROPHILS # (AUTO) 9.9 10^3/uL (1.8-7.8); NEUTROPHILS % (AUTO) 86 % (42-75); PLATELET COUNT 240 10^3/uL (130-400); WHITE BLOOD COUNT 11.5 10^3/uL (4.3-11.0)
[2022-06-07 10:03] LABS: ALBUMIN 3.5 GM/DL (3.2-4.5); POTASSIUM 4.1 MMOL/L (3.6-5.0)
[2022-06-07 10:04] LABS: CALCIUM 8.9 MG/DL (8.5-10.1)
[2022-06-07] MEDS ORDERED: LOSA50TA63 PO (10:05)
[2022-06-07] MEDS ORDERED: CHOL100048 PO (10:05)
--- NOTE | 2022-06-07 10:05 | Consultation-Cardiology ---
HPI-Cardiology Cardiology Consultation: Date of Consultation 06/07/22 Time Seen by a Provider: 09:50 Date of Admission 06-06-22 Attending Physician Deloris Ridley DO Admitting Physician Admitting Physician: Amando Calvo MD Attending Physician: Anisa Garcia DO Consulting Physician Viki Amato MD HPI: Chief Complaint: Resp failure CHF Mr. Yost is a 46 yr old male admitted to ICU 2 from the ED. He is currently intubated and sedated. He is unable to provide any information. A chart review has been done. His sister is at the bedside. She reports he has had increasing fatigue, swelling and SOB over the last several weeks. She states he had not seen any physicians in greater than 10 years until recently when he established care with Dr. Ridley at [facility]. She reports he was started initially on Losartan 25mg daily and it was recently increased to 50mg daily for HTN. She states he reported to her that he has had scrotal swelling to the point it has been difficult to walk. She states he has not reported any c/o CP, palpitations, n/v/d, fever or chills to her. Review of Systems-Cardiology Review of Systems Other comments Unable to obtain d/t sedation and intubation All Other Systems Reviewed Negative Unless Noted: Yes CHY-Adypmt-Adaihx Hx Patient Social History Have you traveled recently?: No Alcohol Use?: Yes Pt feels they are or have been: No Past Medical History PMH As described under Assessment. Family Medical History Family Medical History: Sister at the bedside reports his father has a h/o CAD with stents placed. She also reports his father had a pacemaker. Allergies and Home Medications Allergies Coded Allergies: No Known Drug Allergies (Unverified , 04/26/22) Patient Home Medication List Cholecalciferol (Vitamin D3) (Vitamin D3) 25 Mcg (1000 Unit) Capsule, 25 MCG PO DAILY, (Reported) Entered as Reported by: DELORIS HOWELL on 06/07/22 1005 Last Action: Held Losartan Potassium (Losartan Potassium) 50 Mg Tablet, 50 MG PO DAILY, (Reported) Entered as Reported by: DELORIS HOWELL on 06/07/22 1005 Last Action: Held Physical Exam-Cardiology Physical Exam Vital Signs/I&O 06/07/22 06/07/22 06/07/22 06/07/22 03:00 04:00 04:00 05:00 Pulse 77 94 101 Resp 9 B/P (MAP) 172/98 (122) 148/91 (110) 133/102 (112) Pulse Ox 92 90 92 O2 Delivery NIV Bilevel NIV Bilevel NIV Bilevel NIV Bilevel O2 Flow Rate 55.00 55.00 55.00 FiO2 55 06/07/22 06/07/22 06/07/22 06/07/22 05:15 05:59 06:00 06:22 Pulse 85 88 84 B/P (MAP) 165/115 (132) 173/120 Pulse Ox 100 91 O2 Delivery Mechanical Ventilator Mechanical Ventilator O2 Flow Rate 90.00 90.00 FiO2 100 06/07/22 06/07/22 06/07/22 06/07/22 06:30 07:00 07:00 08:00 Pulse 82 81 81 75 Resp B/P (MAP) 126/77 (93) 145/88 (107) Pulse Ox 90 92 87 O2 Delivery Mechanical Ventilator Mechanical Ventilator O2 Flow Rate 95.00 95.00 FiO2 95 06/07/22 06/07/22 06/07/22 06/07/22 08:00 08:57 09:00 09:04 Pulse 75 88 88 Resp B/P (MAP) 145/88 136/70 (92) 136/70 Pulse Ox 91 94 O2 Delivery Mechanical Ventilator Mechanical Ventilator O2 Flow Rate 95.00 FiO2 100 06/07/22 06/07/22 06/07/22 06/07/22 09:05 09:41 10:00 10:17 Temp 36.5 Pulse 72 71 73 B/P (MAP) 138/78 (98) Pulse Ox 87 89 90 O2 Delivery Mechanical Ventilator Mechanical Ventilator O2 Flow Rate 100.00 100.00 FiO2 100 100 06/07/22 06/07/22 06/07/22 06/07/22 10:22 10:34 11:00 11:22 Temp 36.4 36.5 Pulse 79 72 78 79 Resp B/P (MAP) 142/83 145/83 (103) Pulse Ox 88 92 93 O2 Delivery Mechanical Ventilator O2 Flow Rate 100.00 FiO2 100 100 06/07/22 06/07/22 06/07/22 06/07/22 11:40 12:00 12:57 13:00 Temp 36.6 36.7 Pulse 78 79 81 77 Resp 20 18 B/P (MAP) 145/83 142/83 (102) 142/83 Pulse Ox 95 96 O2 Delivery Mechanical Ventilator Mechanical Ventilator O2 Flow Rate 100.00 100.00 06/07/22 06/07/22 06/07/22 06/07/22 13:00 13:04 14:00 14:16 Temp 36.9 Pulse 77 79 81 Resp 18 B/P (MAP) 142/83 Pulse Ox 93 O2 Delivery Mechanical Ventilator Mechanical Ventilator O2 Flow Rate 100.00 70.00 06/07/22 14:40 Pulse 81 B/P (MAP) 142/83 06/07/22 00:00 Intake Total 1650 ml Output Total 7350 ml Balance -5700 ml Capillary Refill : Less Than 3 Seconds Constitutional: other (intubated and sedated) Neck: No carotid bruit; carotid pulses are 2 + bilaterally Respiratory: other (intubated; good air entry) Cardiovascular: regular rate-rhythm; No JVD; S1 and S2 Gastrointestinal: soft, audible bowel sounds Genital/Rectal: other (scrotal and penile swelling) Extremities: other (mod bilat LE swelling) Neurologic/Psychiatric: other (intubated and sedated - unable to cooperate with exam) Skin: other (red rash to upper thighs and lower abdomen) Data Review Labs Laboratory Tests 06/07/22 04:38: Blood Gas Puncture Site UNKNOWN, Blood Gas Patient Temperature 37, Arterial Blood pH 7.02*L, Arterial Blood Partial Pressure CO2 , Arterial Blood Partial Pressure O2 104H, Arterial Blood HCO3 , Arterial Blood Total CO2 , Arterial Blood Oxygen Saturation 96, Arterial Blood Base Excess , Hasmukh Test NO, Blood Gas Ventilator Setting NO, Blood Gas Inspired Oxygen 55%, Sodium Level 145, Potassium Level 4.6, Chloride Level 97L, Carbon Dioxide Level 29, Anion Gap 19H, Blood Urea Nitrogen 16, Creatinine 1.13, Estimat Glomerular Filtration Rate 81, BUN/Creatinine Ratio 14, Glucose Level 138H, Calcium Level 9.3, Troponin I 0.043H, Triglycerides Level 102, Cholesterol Level 130, LDL Cholesterol Direct 88, VLDL Cholesterol 20, HDL Cholesterol 25L 06/07/22 05:30: Blood Gas Puncture Site L RADIAL, Blood Gas Patient Temperature 37, Arterial Blood pH 7.23*L, Arterial Blood Partial Pressure CO2 101*H, Arterial Blood Partial Pressure O2 94H, Arterial Blood HCO3 40H, Arterial Blood Total CO2 43.5*H, Arterial Blood Oxygen Saturation 97, Arterial Blood Base Excess 12.6H, Hasmukh Test YES-POS, Blood Gas Ventilator Setting YES, Blood Gas Inspired Oxygen 90% 06/07/22 06:20: Influenza Type A (RT-PCR) Not Detected, Influenza Type B (RT-PCR) Not Detected, SARS-CoV-2 RNA (RT-PCR) Not Detected 06/07/22 08:00: Lactic Acid Level 1.52 06/07/22 08:35: White Blood Count 11.5H, Red Blood Count 5.59H, Hemoglobin 13.8, Hematocrit 47, Mean Corpuscular Volume 84, Mean Corpuscular Hemoglobin 25, Mean Corpuscular Hemoglobin Concent 29L, Red Cell Distribution Width 15.7H, Platelet Count 240, Mean Platelet Volume 9.3, Immature Granulocyte % (Auto) 0, Neutrophils (%) (Auto) 86H, Lymphocytes (%) (Auto) 7L, Monocytes (%) (Auto) 7, Eosinophils (%) (Auto) 0, Basophils (%) (Auto) 0, Neutrophils # (Auto) 9.9H, Lymphocytes # (Auto ) 0.8L, Monocytes # (Auto) 0.8, Eosinophils # (Auto) 0.0, Basophils # (Auto) 0.0, Immature Granulocyte # (Auto) 0.0, Neutrophils % (Manual) 84, Lymphocytes % (Manual) 9, Monocytes % (Manual) 6, Atypical Lymphocytes 1, Hypochromasia SLIGHT, Anisocytosis SLIGHT, Microcytosis SLIGHT, Sodium Level 146H, Potassium Level 4.1, Chloride Level 100, Carbon Dioxide Level 29, Anion Gap 17H, Blood Urea Nitrogen 18, Creatinine 1.00, Estimat Glomerular Filtration Rate 94, BUN/Creatinine Ratio 18, Glucose Level 107H, Calcium Level 8.9, Corrected Calcium 9.3, Total Bilirubin 1.2H, Aspartate Amino Transf (AST/SGOT) 169H, Alanine Aminotransferase (ALT/SGPT) 236H, Alkaline Phosphatase 70, B-Type Natriuretic Peptide 371.4H, Total Protein 6.2L, Albumin 3.5, Procalcitonin 0.40H 06/07/22 10:14: Blood Gas Puncture Site L RAD, Blood Gas Patient Temperature 36.4, Arterial Blood pH 7.55H, Arterial Blood Partial Pressure CO2 44, Arterial Blood Partial Pressure O2 45L, Arterial Blood HCO3 39H, Arterial Blood Total CO2 40.1*H, Arterial Blood Oxygen Saturation 90L, Arterial Blood Base Excess 14.7H, Hasmukh Test YES-POS, Blood Gas Ventilator Setting YES, Blood Gas Inspired Oxygen 100% 06/07/22 13:03: Glucometer 96 06/07/22 13:33: Blood Gas Puncture Site ARTLINE, Blood Gas Patient Temperature 36.7, Arterial Blood pH 7.49H, Arterial Blood Partial Pressure CO2 54H, Arterial Blood Partial Pressure O2 62L, Arterial Blood HCO3 41*H, Arterial Blood Total CO2 42.2*H, Arterial Blood Oxygen Saturation 95, Arterial Blood Base Excess 15.8H, Hasmukh Test Y, Blood Gas Ventilator Setting YES, Blood Gas Inspired Oxygen 100% Radiology NAME: TEO YOST [facility] REC#: [id number] PT STATUS: REG ER : 1975 PHYSICIAN: DIONICIO KELLY MD ADMIT DATE: 04/26/22/ER Signed Date of Exam:04/26/22 CT ANGIO CHEST W EXAMINATION: CT angiography of the chest. TECHNIQUE: Contrast enhanced thin section helical images were obtained through the chest with intravenous contrast timed for the optimal opacification of the arterial structures per CTA protocol. Post-processing, reconstructions and interpretation of angiographic images of the vessels was performed. 3D MIP reconstructions were performed and reviewed. All CT scans use one or more of the following dose optimizing techniques: automated exposure control, MA and/or KvP adjustment based on a patient size and exam type, or iterative reconstruction. HISTORY: SOB, hypoxic, positive dimer COMPARISON: None available. FINDINGS: Vascular: No filling defects within the pulmonary arteries. Thoracic aorta is normal in caliber. Thyroid: The thyroid is normal. Mediastinum: Heart size is normal without significant pericardial effusion. No suspicious lymphadenopathy. Lungs and airways: No consolidation or pneumothorax. There is atelectasis within the dependent lungs. Trace bilateral pleural effusions. The airways are normal. Upper abdomen: The subphrenic structures are normal. Musculoskeletal: Degenerative changes of the spine without suspicious osseous lesion or compression fracture. IMPRESSION: 1. No findings of pulmonary embolus or other acute abnormality in the chest. 2. Trace bilateral pleural effusions with adjacent atelectasis. Dictated by: Dictated on workstation # [id number] Dict: 04/26/22 1145 Trans: 04/26/22 1156 CVB [id number] Interpreted by: FARTUN GREENBERG DO Electronically signed by: FARTUN GREENBERG DO 04/26/22 1156 NAME: TEO YOST [facility] REC#: [id number] PT STATUS: ADM IN : 1975 PHYSICIAN: SOLO MAYO DO ADMIT DATE: 06/06/22/ICU Signed Date of Exam:06/07/22 CHEST 1 VIEW, AP/PA ONLY EXAMINATION: Chest 1 view HISTORY: Tube placement COMPARISON: 06/06/2022 FINDINGS: Heart size and pulmonary vasculature are stable. Increasing interstitial and airspace opacities throughout both lungs compared to prior exam. May be a trace left pleural effusion. Interval placement of an endotracheal tube above the kaleb. Enteric catheter is present coursing below the diaphragm. No pneumothorax. The osseous structures are intact. IMPRESSION: 1. Increasing airspace opacities throughout both lungs compared to prior exam. 2. Interval placement of an endotracheal tube and enteric catheter. Dictated by: Dictated on workstation # [id number] Dict: 06/07/22 0604 Trans: 06/07/22 0759 LUIS [id number] Interpreted by: FARTUN GREENBERG DO Electronically signed by: FARTUN GREENBERG DO 06/07/22 0759 ECG Impression ECG Initial ECG Rhythm: Normal Sinus A/P-Cardiology Assessment/Admission Diagnosis Respiratory failure requiring intubation - likely multi-factorial d/t acute CHF and obesity -hypoventilation syndrome Acute CHF - Echocardiogram and tx with diuretics Elevated liver enzymes - possibly hepatobiliary congestion d/t CHF MPI 06-02-[address] Phillip: Good exercise tolerance for a total of 5 minutes on Milan protocol, 7 METs, achieving 86 percent of maximum expected heart rate. Minimal nondiagnostic EKG changes with exercise returned to baseline during recovery. No arrhythmia was noted. Hypertensive response to exercise with peak blood pressure 204/112 return to baseline during recovery HTN Obesity - BMI approx 47 Discussion and Recomendations Respiratory failure for reasons noted above - treat with diuretics - echocardiogram today Elevated liver enzymes - possibly secondary to hepatobiliary congestion Monitor lab - replace electrolytes as indicated Advise out pt sleep studies Further recs will be based on his hospital course We would like to thank Dr. Garcia for this consult I have spoken to her regarding plan of care DICK LUKE Jun 07, 2022 10:05
[2022-06-07 10:06] LABS: TOTAL PROTEIN 6.2 GM/DL (6.4-8.2)
[2022-06-07 10:07] LABS: BILIRUBIN,TOTAL 1.2 MG/DL (0.1-1.0)
[2022-06-07 10:21] LABS: ABG BASE EXCESS 14.7 MMOL/L (-2.5-2.5); ABG OXYGEN SATURATION 90 % (94-100); ABG PCO2 44 MMHG (35-45); ABG PH 7.55 (7.37-7.43); ABG PO2 45 MMHG (79-93)
[2022-06-07 10:23] LABS: ANISOCYTOSIS SLIGHT; ATYPICAL LYMPHOCYTES 1 %; HYPOCHROMASIA SLIGHT; LYMPHOCYTES % (MANUAL) 9 %; MICROCYTOSIS SLIGHT; MONOCYTES % (MANUAL) 6 %; NEUTROPHILS % (MANUAL) 84 %
[2022-06-07 10:26] LABS: ABG TCO2 40.1 MMOL/L (21.0-31.0); ALLENS TEST YES-POS; INSPIRED O2 100%; PATIENT TEMP 36.4; VENTILATOR YES
[2022-06-07] MEDS ORDERED: NS IV 1000 ML 1,000 ML ONE (10:29)
[2022-06-07] MEDS ORDERED: FUROSEMIDE 40 MG/4 ML INJ (LASIX) IVP ONE (10:30)
[2022-06-07] MEDS ORDERED: RT-ALBUTEROL/IPRATROPIUM 3 ML (DUONEB) VIAL INH PRN (10:45)
[2022-06-07] MEDS ORDERED: FUROSEMIDE 40 MG/4 ML INJ (LASIX) IVP NR (12:00)
--- NOTE | 2022-06-07 12:12 | History & Physical-Hospitalist ---
GUILHERME JOHNSON 06/07/22 1212: History of Present Illness HPI/Chief Complaint Patient is a 46 y/o obese M with some history of HTN and sleep apnea who pres ented to the ED initially for scrotal swelling and decreased urine output. Patient's sister states it was at first thought to be due to changing the patient's Losartan dose from 25mg daily to 50 mg daily. She reports that in days prior to his hospitalization, the patient had been experiencing increased swelling throughout his lower extremities and it was bringing about some concern. She adds that he has not been to see a doctor for the last 10 years. Yesterday patient had to be sedated and intubated due to acute respiratory failure with decreased O2 sats in the 50s and being unresponsive to sternal rubs. He remains on the ventilator today and is unable to give any information or participate in exam. He is also receiving Lasix at present and his nurse reports about 10L of fluid to have been drained off this morning. CXR shows increasing airspace opacities throughout both lungs. EKG taken due to elevated troponin shows nonspecific T wave abnormality. AB.//94 Vent: 500// Source: , RN/ Date Seen 06/07/22 Time Seen by a Provider: 11:58 Attending Physician Chivo Ridley DO PCP Admitting Physician: Amando Calvo MD Attending Physician: Anisa Zhu DO Referring Physician Date of Admission Jun 06, 2022 at 13:14 Home Medications & Allergies Home Medications Reviewed patient Home Medication Reconciliation performed by pharmacy medication reconciliations computer hardware technician and/or nursing. Patients Allergies have been reviewed. Allergies Allergies Coded Allergies No Known Drug Allergies (Unverified04/26/22) Past Tktzxfy-Vovtgy-Fzapwf Hx Patient Social History Tobacco Use?: No Use of E-Cig and/or Vaping dev: No Substance use?: No Alcohol Use?: Yes Alcohol type: Beer Alcohol Frequency: Once in a while Pt feels they are or have been: No Current Status Advance Directives: No Communicates: Verbally Primary Language: German Preferred Spoken Language: German Is interpretation needed?: No Implanted or Applied Medical D: None Family Medical History Reviewed Nursing Family Hx Review of Systems ROS-Unable to Obtain: Patient is sedated and intubated. Physical Exam Physical Exam Vital Signs Vital Signs - First Documented 06/06/22 06/06/22 11:25 20:00 Temp 37.1 Pulse 85 Resp 20 B/P (MAP) 155/96 (115) Pulse Ox 94 O2 Delivery Nasal Cannula O2 Flow Rate 2.00 FiO2 55 Capillary Refill : Less Than 3 Seconds Height, Weight, BMI Height: '" Weight: lbs. oz. kg; 47.30 BMI Method: General Appearance: Obese Respiratory: Crackles, Respiratory Distress Cardiovascular: Tachycardia Results Results/Procedures Labs Laboratory Tests 06/06/22 11:22 06/07/22 04:38 06/07/22 08:35 Patient resulted labs reviewed. Assessment/Plan Admission Diagnosis 1. Acute Hypercapnic Respiratory Failure 2. Acute Flash Pulmonary Edema with Anasarca 3. Unresponsive episode Assessment and Plan Assessment: Acute Hypercapnic Respiratory Failure Acute Flash Pulmonary Edema with Anasarca Unresponsive Episode due to narcotics HTN with recent increase in Losartan dose Normal Stress test 5 days ago Elevated Liver Enzymes due to CHF Type 2 NSTEMI Hx of sleep apnea Obesity Noncompliance with medical management of prior conditions Plan: Continue tx with diuretics Continue home meds Monitor labs and replace prn Echo today Procalcitonin to R/O pneumonia due to bacterial infection Monitor BP Critical Care Ventilator Management ANISA ZUH 06/08/22 0501: History of Present Illness HPI/Chief Complaint CC: Acute respiratory failure HPI: This is a 46 yr old male who presented to the ER with SOB. He was found to have CHF and he failed BiPAP. He required intubation. His vent settings are 500/22/10 at 100%. Sister is at the bedside. Considering his CO2 is severely elevated at 101, his pH is 7.23 he has a guarded prognosis at this point. Chest x-ray showed opacities, will check procalcitonin and labs this morning. Source: family, RN/MD Past Hjjrlkp-Xzssgn-Qjqnfp Hx Patient Social History Marrital Status: single Employed/Student: unemployed Review of Systems Constitutional: see HPI Physical Exam Physical Exam General Appearance: No Apparent Distress, Obese, Other (sedated) Respiratory: Crackles, Decreased Breath Sounds Cardiovascular: Tachycardia Assessment/Plan Admission Diagnosis Assessment: Acute hypercapneic respiratory failure Massive anasarca OHA Plan: Vent management Monitor diuresis Admission Status: Inpatient Order (span 2 midnights) Reason for Inpatient Admission: acute resp failure Supervisory-Addendum Brief Verification & Attestation Participated in pt care: history, MDM, physical Personally performed: exam, history, MDM, supervision of care Care discussed with: Medical Student Procedures: n/a Results interpretation: Verified all documentation Verification and Attestation of Medical Student E/M Service A medical student performed and documented this service in my presence. I reviewed and verified all information documented by the medical student and made modifications to such information, when appropriate. I personally performed the physical exam and medical decision making. Anisa Zhu, Jun 08, 2022,05:01 GUILHERME JOHNSON Jun 07, 2022 12:12 ANISA ZHU DO Jun 08, 2022 05:01
--- NOTE | 2022-06-07 13:35 | Anesthesia-Procedure Note ---
Procedures/Interventions Procedure Start/Stop/Diagnosis Date of Procedure: Jun 07, 2022 Start Time: 13:00 Stop Time: 13:22 Arterial Line Arterial Line Catheter: 20G Type: Radial Location: Right Procedure: prepped, draped in sterile fashion, good wave-form was obtained, patient tolerated procedure well, no immediate complications, post procedure area cleaned, post procedure dressing applied BASILIO HERRON CRNA Jun 07, 2022 13:35
[2022-06-07 13:40] LABS: ABG BASE EXCESS 15.8 MMOL/L (-2.5-2.5); ABG OXYGEN SATURATION 95 % (94-100); ABG PCO2 54 MMHG (35-45); ABG PH 7.49 (7.37-7.43); ABG PO2 62 MMHG (79-93)
[2022-06-07 13:42] LABS: ALLENS TEST Y; INSPIRED O2 100%; VENTILATOR YES
[2022-06-07 13:44] LABS: PATIENT TEMP 36.7
[2022-06-07 13:45] LABS: ABG TCO2 42.2 MMOL/L (21.0-31.0)
--- NOTE | 2022-06-07 14:26 | Consultation-Cardiology ---
HPI-Cardiology Cardiology Consultation: Date of Consultation 06/07/22 Time Seen by a Provider: 11:50 Date of Admission Attending Physician Deloris Ridley DO Admitting Physician Admitting Physician: Amando Calvo MD Attending Physician: Anisa Garcia DO Consulting Physician TIFFANIE MONTANEZ MD, MA, FACP, FACC, [facility] [place], CCDS HPI: Chief Complaint: Resp failure CHF Mr. Murphy is a 46 yr old male admitted to ICU 2 from the ED. He is currently intubated and sedated. He is unable to provide any information. A chart review has been done. His sister is at the bedside. She reports he has had increasing fatigue, swelling and SOB over the last several weeks. She states he had not seen any physicians in greater than 10 years until recently when he established care with Dr. Ridley at [facility]. She reports he was started initially on Losartan 25mg daily and it was recently increased to 50mg daily for HTN. She states he reported to her that he has had scrotal swelling to the point it has been difficult to walk. She states he has not reported any c/o CP, palpitations, n/v/d, fever or chills to her. Review of Systems-Cardiology All Other Systems Reviewed Negative Unless Noted: Yes AZK-Ijkadc-Mfathp Hx Patient Social History Have you traveled recently?: No Alcohol Use?: Yes Pt feels they are or have been: No Past Medical History PMH As described under Assessment. Family Medical History Family Medical History: Sister at the bedside reports his father has a h/o CAD with stents placed. She also reports his father had a pacemaker. Allergies and Home Medications Allergies Coded Allergies: No Known Drug Allergies (Unverified , 04/26/22) Patient Home Medication List Home Medication List Reviewed: Yes Cholecalciferol (Vitamin D3) (Vitamin D3) 25 Mcg (1000 Unit) Capsule, 25 MCG PO DAILY, (Reported) Entered as Reported by: DELORIS HOWELL on 06/07/22 1005 Last Action: Held Losartan Potassium (Losartan Potassium) 50 Mg Tablet, 50 MG PO DAILY, (Reported) Entered as Reported by: DELORIS HOWELL on 06/07/22 1005 Last Action: Held Physical Exam-Cardiology Physical Exam Vital Signs/I&O 06/07/22 06/07/22 06/07/22 06/07/22 03:00 04:00 04:00 05:00 Pulse 77 94 101 Resp 9 B/P (MAP) 172/98 (122) 148/91 (110) 133/102 (112) Pulse Ox 92 90 92 O2 Delivery NIV Bilevel NIV Bilevel NIV Bilevel NIV Bilevel O2 Flow Rate 55.00 55.00 55.00 FiO2 55 06/07/22 06/07/22 06/07/22 06/07/22 05:15 05:59 06:00 06:22 Pulse 85 88 84 B/P (MAP) 165/115 (132) 173/120 Pulse Ox 100 91 O2 Delivery Mechanical Ventilator Mechanical Ventilator O2 Flow Rate 90.00 90.00 FiO2 100 06/07/22 06/07/22 06/07/22 06/07/22 06:30 07:00 07:00 08:00 Pulse 82 81 81 75 Resp B/P (MAP) 126/77 (93) 145/88 (107) Pulse Ox 90 92 87 O2 Delivery Mechanical Ventilator Mechanical Ventilator O2 Flow Rate 95.00 95.00 FiO2 95 06/07/22 06/07/22 06/07/22 06/07/22 08:00 08:57 09:00 09:04 Pulse 75 88 88 Resp B/P (MAP) 145/88 136/70 (92) 136/70 Pulse Ox 91 94 O2 Delivery Mechanical Ventilator Mechanical Ventilator O2 Flow Rate 95.00 FiO2 100 06/07/22 06/07/22 06/07/22 06/07/22 09:05 09:41 10:00 10:17 Temp 36.5 Pulse 72 71 73 B/P (MAP) 138/78 (98) Pulse Ox 87 89 90 O2 Delivery Mechanical Ventilator Mechanical Ventilator O2 Flow Rate 100.00 100.00 FiO2 100 100 06/07/22 06/07/22 06/07/22 06/07/22 10:22 10:34 11:00 11:22 Temp 36.4 36.5 Pulse 79 72 78 79 Resp B/P (MAP) 142/83 145/83 (103) Pulse Ox 88 92 93 O2 Delivery Mechanical Ventilator O2 Flow Rate 100.00 FiO2 100 100 06/07/22 06/07/22 06/07/22 06/07/22 11:40 12:00 12:57 13:00 Temp 36.6 36.7 Pulse 78 79 81 77 Resp 20 18 B/P (MAP) 145/83 142/83 (102) 142/83 Pulse Ox 95 96 O2 Delivery Mechanical Ventilator Mechanical Ventilator O2 Flow Rate 100.00 100.00 06/07/22 06/07/22 06/07/22 06/07/22 13:00 13:04 14:00 14:16 Temp 36.9 Pulse 77 79 81 Resp 18 B/P (MAP) 142/83 Pulse Ox 93 O2 Delivery Mechanical Ventilator Mechanical Ventilator O2 Flow Rate 100.00 70.00 06/07/22 00:00 Intake Total 1650 ml Output Total 7350 ml Balance -5700 ml Capillary Refill : Less Than 3 Seconds Constitutional: other (intubated and sedated) Neck: No carotid bruit; carotid pulses are 2 + bilaterally Respiratory: other (intubated; good air entry) Cardiovascular: regular rate-rhythm; No JVD; S1 and S2 Gastrointestinal: soft, audible bowel sounds Genital/Rectal: other (scrotal and penile swelling) Extremities: other (mod bilat LE swelling) Neurologic/Psychiatric: other (intubated and sedated - unable to cooperate with exam) Skin: other (red rash to upper thighs and lower abdomen) Data Review Labs Laboratory Tests 06/07/22 04:38: Blood Gas Puncture Site UNKNOWN, Blood Gas Patient Temperature 37, Arterial Blood pH 7.02*L, Arterial Blood Partial Pressure CO2 , Arterial Blood Partial Pressure O2 104H, Arterial Blood HCO3 , Arterial Blood Total CO2 , Arterial Blood Oxygen Saturation 96, Arterial Blood Base Excess , Hasmukh Test NO, Blood Gas Ventilator Setting NO, Blood Gas Inspired Oxygen 55%, Sodium Level 145, Potassium Level 4.6, Chloride Level 97L, Carbon Dioxide Level 29, Anion Gap 19H, Blood Urea Nitrogen 16, Creatinine 1.13, Estimat Glomerular Filtration Rate 81, BUN/Creatinine Ratio 14, Glucose Level 138H, Calcium Level 9.3, Troponin I 0.043H, Triglycerides Level 102, Cholesterol Level 130, LDL Cholesterol Direct 88, VLDL Cholesterol 20, HDL Cholesterol 25L 06/07/22 05:30: Blood Gas Puncture Site L RADIAL, Blood Gas Patient Temperature 37, Arterial Blood pH 7.23*L, Arterial Blood Partial Pressure CO2 101*H, Arterial Blood Partial Pressure O2 94H, Arterial Blood HCO3 40H, Arterial Blood Total CO2 43.5*H, Arterial Blood Oxygen Saturation 97, Arterial Blood Base Excess 12.6H, Hasmukh Test YES-POS, Blood Gas Ventilator Setting YES, Blood Gas Inspired Oxygen 90% 06/07/22 06:20: Influenza Type A (RT-PCR) Not Detected, Influenza Type B (RT-PCR) Not Detected, SARS-CoV-2 RNA (RT-PCR) Not Detected 06/07/22 08:00: Lactic Acid Level 1.52 06/07/22 08:35: White Blood Count 11.5H, Red Blood Count 5.59H, Hemoglobin 13.8, Hematocrit 47, Mean Corpuscular Volume 84, Mean Corpuscular Hemoglobin 25, Mean Corpuscular Hemoglobin Concent 29L, Red Cell Distribution Width 15.7H, Platelet Count 240, Mean Platelet Volume 9.3, Immature Granulocyte % (Auto) 0, Neutrophils (%) (Auto) 86H, Lymphocytes (%) (Auto) 7L, Monocytes (%) (Auto) 7, Eosinophils (%) (Auto) 0, Basophils (%) (Auto) 0, Neutrophils # (Auto) 9.9H, Lymphocytes # (Auto) 0.8L, Monocytes # (Auto) 0.8, Eosinophils # (Auto) 0.0, Basophils # (Auto) 0.0, Immature Granulocyte # (Auto) 0.0, Neutrophils % (Manual) 84, Lymphocytes % (Manual) 9, Monocytes % (Manual) 6, Atypical Lymphocytes 1, Hypochromasia SLIGHT, Anisocytosis SLIGHT, Microcytosis SLIGHT, Sodium Level 146H, Potassium Level 4.1, Chloride Level 100, Carbon Dioxide Level 29, Anion Gap 17H, Blood Urea Nitrogen 18, Creatinine 1.00, Estimat Glomerular Filtration Rate 94, BUN/Creatinine Ratio 18, Glucose Level 107H, Calcium Level 8.9, Corrected Calcium 9.3, Total Bilirubin 1.2H, Aspartate Amino Transf (AST/SGOT) 169H, Alanine Aminotransferase (ALT/SGPT) 236H, Alkaline Phosphatase 70, B-Type Natriuretic Peptide 371.4H, Total Protein 6.2L, Albumin 3.5, Procalcitonin 0.40H 06/07/22 10:14: Blood Gas Puncture Site L RAD, Blood Gas Patient Temperature 36.4, Arterial Blood pH 7.55H, Arterial Blood Partial Pressure CO2 44, Arterial Blood Partial Pressure O2 45L, Arterial Blood HCO3 39H, Arterial Blood Total CO2 40.1*H, Arterial Blood Oxygen Saturation 90L, Arterial Blood Base Excess 14.7H, Hasmukh Test YES-POS, Blood Gas Ventilator Setting YES, Blood Gas Inspired Oxygen 100% 06/07/22 13:03: Glucometer 96 06/07/22 13:33: Blood Gas Puncture Site ARTLINE, Blood Gas Patient Temperature 36.7, Arterial Blood pH 7.49H, Arterial Blood Partial Pressure CO2 54H, Arterial Blood Partial Pressure O2 62L, Arterial Blood HCO3 41*H, Arterial Blood Total CO2 42.2*H, Arterial Blood Oxygen Saturation 95, Arterial Blood Base Excess 15.8H, Hasmukh Te st Y, Blood Gas Ventilator Setting YES, Blood Gas Inspired Oxygen 100% A/P-Cardiology Assessment/Admission Diagnosis Respiratory failure requiring intubation - likely multi-factorial d/t acute CHF and obesity -hypoventilation syndrome Acute CHF - Echocardiogram and tx with diuretics Elevated liver enzymes - possibly hepatobiliary congestion d/t CHF MPI 06-02-[address] Phillip: Good exercise tolerance for a total of 5 minutes on Milan protocol, 7 METs, achieving 86 percent of maximum expected heart rate. Minimal nondiagnostic EKG changes with exercise returned to baseline during recovery. No arrhythmia was noted. Hypertensive response to exercise with peak blood pressure 204/112 return to baseline during recovery HTN Obesity - BMI approx 47 Discussion and Recomendations Respiratory failure for reasons noted above - treat with diuretics - echocardiogram today Elevated liver enzymes - possibly secondary to hepatobiliary congestion Monitor lab - replace electrolytes as indicated Advise out pt sleep studies Further recs will be based on his hospital course We would like to thank Dr. Garcia for this consult I have spoken to her regarding plan of care TIFFANIE MONTANEZ MD FACP FAC CCDS Jun 07, 2022 14:26
[2022-06-07] MEDS: RT-ALBUTEROL/IPRATROPIUM 3 ML (DUONEB) VIAL INH SCH ×3 (14:44→22:28)
[2022-06-07] MEDS ORDERED: acetaZOLAMIDE INJECTION 250 MG in SYRINGE-IVPB 1 SYRINGE IV NR (15:15)
[2022-06-07] MEDS: FUROSEMIDE 40 MG/4 ML INJ (LASIX) IVP SCH (17:40)
[2022-06-08 02:28] VITALS: BP 98/57
[2022-06-08] MEDS: RT-ALBUTEROL/IPRATROPIUM 3 ML (DUONEB) VIAL INH SCH ×6 (02:28→21:37)
[2022-06-08] MEDS ORDERED: NS IV 500 ML 500 ML IV PRN (02:45)
[2022-06-08 03:57] LABS: BASOPHILS % (AUTO) 0 % (0-10); EOSINOPHILS % (AUTO) 0 % (0-10); HEMATOCRIT 44 % (40-54); HEMOGLOBIN 13.4 g/dL (13.3-17.7); LYMPHOCYTES # (AUTO) 1.3 10^3/uL (1.0-4.0); LYMPHOCYTES % (AUTO) 12 % (12-44); MEAN CORPUSCULAR HEMOGLOBIN 24 pg (25-34); MEAN CORPUSCULAR HGB CONC 31 g/dL (32-36); MEAN CORPUSCULAR VOLUME 80 fL (80-99); MEAN PLATELET VOLUME 9.1 fL (9.0-12.2); MONOCYTES # (AUTO) 0.7 10^3/uL (0.0-1.0); MONOCYTES % (AUTO) 7 % (0-12); NEUTROPHILS # (AUTO) 8.3 10^3/uL (1.8-7.8); NEUTROPHILS % (AUTO) 80 % (42-75); PLATELET COUNT 246 10^3/uL (130-400); WHITE BLOOD COUNT 10.3 10^3/uL (4.3-11.0)
[2022-06-08 04:04] LABS: POTASSIUM 3.1 MMOL/L (3.6-5.0)
[2022-06-08 04:05] LABS: CALCIUM 8.8 MG/DL (8.5-10.1)
[2022-06-08 04:09] LABS: PHOSPHORUS 4.7 MG/DL (2.3-4.7)
[2022-06-08 04:10] LABS: CREATININE SERUM 1.03 MG/DL (0.60-1.30)
[2022-06-08] MEDS: MAGNESIUM 1 GM/100 ML IVPB 100 ML IV SCH (04:38)
[2022-06-08] MEDS: KCL 20 MEQ TAB (K-DUR) PO SCH (04:38)
[2022-06-08] MEDS: POTASSIUM CL 10MEQ/50ML IVPB 50 ML IV SCH ×5 (04:39→07:42)
[2022-06-08] MEDS: PROPOFOL DRIP (ICU) 100 ML IV SCH ×4 (05:05→21:00)
[2022-06-08] MEDS: CATHETER FLUSH 10 ML SYR IV SCH ×3 (05:06→21:02)
[2022-06-08] MEDS: FUROSEMIDE 40 MG/4 ML INJ (LASIX) IVP SCH ×2 (06:13→16:55)
[2022-06-08 06:24] VITALS: BP 109/62
--- NOTE | 2022-06-08 06:40 | Occ Therapy Progress Note ---
Therapy Progress Note Pt currently intubated. OT to monitor pt's status then will initiate treatment when pt is medically stable and able to actively participate in skilled therapy. ESTEPHANIE GARCIA Jun 08, 2022 06:40
--- NOTE | 2022-06-08 07:08 | Physical Therapy Progress Note ---
Therapy Progress Note Patient currently sedated and intubated. PT will continue to monitor patient status and initiate treatment when patient is medically stable and able to actively participate with skilled therapy. KARISSA VILLARREAL PT Jun 08, 2022 07:08
[2022-06-08 08:03] LABS: ALBUMIN 3.4 GM/DL (3.2-4.5)
[2022-06-08 08:06] LABS: TOTAL PROTEIN 5.9 GM/DL (6.4-8.2)
[2022-06-08 08:08] LABS: BILIRUBIN,TOTAL 1.1 MG/DL (0.1-1.0)
[2022-06-08 08:12] LABS: BILIRUBIN,DIRECT 0.5 MG/DL (0.0-0.3); BILIRUBIN,INDIRECT 0.6 MG/DL
--- NOTE | 2022-06-08 08:31 | Progress Note - Cardiology ---
Cardiology SOAP Progress Note Subjective: Remains intubated and sedated Objective: I&O/Vital Signs Constitutional: other (intubated and sedated) Respiratory: other (intubated; good air entry) Cardiovascular: regular rate-rhythm; No JVD; S1 and S2 Gastrointestional: soft, audible bowel sounds Genital/Rectal: other (scrotal and penile swelling) Extremities: other (mod bilat LE swelling) Neurologic/Psychiatric: other (intubated and sedated - unable to cooperate with exam) Skin: other (red rash to upper thighs and lower abdomen) Results/Procedures: Labs Microbiology 06/14/22 Gram Stain, Resulted Pending 06/14/22 Sputum Culture - Preliminary, Resulted Staphylococcus aureus Gram Negative Nik Usual upper respiratory tonny 06/07/22 Blood Culture - Final, Complete No growth A/P: Assessment: Respiratory failure requiring intubation - likely multi-factorial d/t acute diastolic CHF and obesity -hypoventilation syndrome Acute diastolic CHF - Echocardiogram of 06-07-22 showed LVEF 55-60% Elevated liver enzymes - possibly hepatobiliary congestion d/t CHF - improving with aggressive diuresis MPI 06-02-[address] Phillip: Good exercise tolerance for a total of 5 minutes on [place] protocol, 7 METs, achieving 86 percent of maximum expected heart rate. Minimal nondiagnostic EKG changes with exercise returned to baseline during recovery. No arrhythmia was noted. Hypertensive response to exercise with peak blood pressure 204/112 return to baseline during recovery HTN - controlled Obesity - BMI approx 47 Plan: Respiratory failure for reasons noted above - continue to treat with diuretics - good response Elevated liver enzymes - likely secondary to hepatobiliary congestion - improving Monitor lab - replace electrolytes as indicated Advise out pt sleep studies DICK LUKE Jun 08, 2022 08:31
[2022-06-08] MEDS: LOSARTAN 50 MG (COZAAR) TAB PO SCH (08:32)
[2022-06-08] MEDS: PANTOPRAZOLE 40 MG (PROTONIX) VIAL IV SCH (08:32)
[2022-06-08] MEDS ORDERED: PANTOPRAZOLE 40 MG (PROTONIX) VIAL IV SCH (09:00)
--- NOTE | 2022-06-08 09:06 | Tele-ICU Progress Note ---
Subjective Date Seen by a Provider: Jun 08, 2022 Time Seen by a Provider: 09:05 Subjective/Events-last exam (Tele-ICU Physician , consultation) Available chart/ vitals / labs / Images reviewed H&P is from ER notes Patient's information available about PMH, allergy reviewed in EMR. ROS as per chart and RN report Video assessment done using teleICU camera, rest of exam as per RN Discussed with RN. Patient today remained on mechanical ventilation. He has been diuresing well with the increase in the Lasix. His blood pressure is borderline. His peripheral edema is improving per RN. Video visit made. Currently his FiO2 is 70% and PEEP at 12. Review of Systems ROS PER RN Sepsis Event Evaluation Height, Weight, BMI Height: '" Weight: lbs. oz. kg; 44.55 BMI Method: Focused Exam Lactate Level 06/07/22 08:00: Lactic Acid Level 1.52 Exam Exam Patient acknowledged, consented, and participated in this virtual visit which was conducted using real time audio/video Vital Signs Date Time Temp Pulse Resp B/P (MAP) Pulse Ox O2 Delivery O2 Flow Rate FiO2 06/08/22 08:00 92 Mechanical Ventilator 70 06/08/22 08:00 36.9 81 15 91 Mechanical Ventilator 70.00 06/08/22 07:55 36.5 06/08/22 07:00 82 06/08/22 07:00 36.8 80 15 91 Mechanical Ventilator 70.00 06/08/22 06:24 78 15 92 70 06/08/22 06:17 70 06/08/22 06:00 36.9 78 15 91 Mechanical Ventilator 70.00 06/08/22 05:07 79 98/57 06/08/22 05:05 79 98/57 06/08/22 05:00 36.1 79 15 92 Mechanical Ventilator 70.00 06/08/22 04:00 91 Mechanical Ventilator 70 06/08/22 04:00 36.2 80 15 92 Mechanical Ventilator 70.00 06/08/22 03:00 36.7 83 15 91 Mechanical Ventilator 70.00 06/08/22 02:55 83 98/57 06/08/22 02:55 83 98/57 06/08/22 02:28 82 15 91 70 06/08/22 02:00 36.6 82 15 92 Mechanical Ventilator 70.00 06/08/22 02:00 70 06/08/22 01:52 Mechanical Ventilator 70.00 06/08/22 01:00 81 06/08/22 01:00 36.8 81 15 92 Mechanical Ventilator 70.00 06/08/22 00:30 79 100/56 06/08/22 00:30 79 100/56 06/08/22 00:00 92 Mechanical Ventilator 70 06/08/22 00:00 36.9 79 15 93 Mechanical Ventilator 70.00 06/07/22 23:00 37.2 82 15 93 Mechanical Ventilator 70.00 06/07/22 22:54 78 100/56 06/07/22 22:53 78 100/56 06/07/22 22:30 88 15 90 70 06/07/22 22:00 70 06/07/22 22:00 37.1 83 15 93 Mechanical Ventilator 70.00 06/07/22 21:00 37.0 82 15 95 Mechanical Ventilator 70.00 06/07/22 20:36 78 100/56 06/07/22 20:31 78 100/56 06/07/22 20:00 70 06/07/22 20:00 36.3 80 15 95 Mechanical Ventilator 70.00 06/07/22 20:00 93 Mechanical Ventilator 70 06/07/22 19:00 36.5 80 15 94 Mechanical Ventilator 70.00 06/07/22 19:00 80 06/07/22 19:00 Mechanical Ventilator 70.00 06/07/22 18:41 78 15 93 70 06/07/22 18:40 78 100/56 06/07/22 18:00 36.7 76 19 95 Mechanical Ventilator 70.00 06/07/22 17:40 79 99/53 06/07/22 17:00 36.7 79 20 95 Mechanical Ventilator 70.00 06/07/22 16:00 36.6 77 18 95 Mechanical Ventilator 70.00 06/07/22 16:00 95 Mechanical Ventilator 70 06/07/22 15:40 78 99/53 06/07/22 15:00 36.9 78 15 95 Mechanical Ventilator 70.00 06/07/22 14:44 76 15 94 70 06/07/22 14:40 81 142/83 06/07/22 14:16 Mechanical Ventilator 70.00 06/07/22 14:00 36.9 81 18 93 Mechanical Ventilator 100.00 06/07/22 13:04 79 142/83 06/07/22 13:00 77 06/07/22 13:00 36.7 77 18 96 Mechanical Ventilator 100.00 06/07/22 12:57 81 142/83 06/07/22 12:00 95 Mechanical Ventilator 100 06/07/22 12:00 36.6 79 20 142/83 (102) 95 Mechanical Ventilator 100.00 06/07/22 11:40 78 145/83 06/07/22 11:22 79 20 93 100 06/07/22 11:00 36.5 78 22 145/83 (103) 92 Mechanical Ventilator 100.00 06/07/22 10:34 36.4 72 88 100 06/07/22 10:22 79 142/83 06/07/22 10:17 73 22 90 100 06/07/22 10:00 36.5 71 22 138/78 (98) 89 Mechanical Ventilator 100.00 06/07/22 09:41 Mechanical Ventilator 100.00 I & O 06/08/22 06:59 Intake Total 723 ml Output Total 7800 ml Balance -7077 ml Height & Weight Height: '" Weight: lbs. oz. kg; 44.55 BMI Method: General Appearance: No Apparent Distress, Obese, Other (sedated) HEENT: Pharynx Normal, Moist Mucous Membranes Neck: Full Range of Motion, Normal Inspection, Non Tender Respiratory: Crackles, Decreased Breath Sounds Cardiovascular: Tachycardia Capillary Refill: Less Than 3 Seconds Gastrointestinal: normal bowel sounds, non tender Extremity: Normal Range of Motion, Non Tender, No Calf Tenderness, Pedal Edema, Swelling (generalized lower extremity swelling) Neurologic/Psychiatric: Alert, Oriented x3, Other (sedatsed) Skin: Normal Color, Warm/Dry Other comments PE PER RN Results Lab Laboratory Tests 06/06/22 11:22 06/07/22 04:38 06/07/22 08:35 06/08/22 03:45 Assessment/Plan Assessment/Plan 1. Acute on chronic hypercarbic respiratory failure slowly improving. 2. Heart failure with a preserved left ventricular ejection fraction slowly improving. 3. Mild metabolic alkalosis along with respiratory acidosis improving. Recommendations 1. 1. Continue current mechanical ventilatory support. He is not ready for SBT. 2. Continue diuretic therapy per cardiology 3. If his blood pressure improves will consider giving another dose of Diamox. 4. DVT prophylaxis and GI prophylaxis. 5. Treatment with collaboration of consultants and primary care team. Critical Care: Ventilator Management Time spent with patient (mins): 35 FITO VELEZ MD Jun 08, 2022 09:05
--- NOTE | 2022-06-08 09:25 | Diagnostic Imaging Report ---
EXAMINATION: Chest 1 view HISTORY: Heart failure. Shortness of breath. COMPARISON: 06/07/2022. FINDINGS: Stable configuration of the endotracheal tube and enteric tube. A right PICC has been placed with the tip poorly visualized. Lung volumes are decreased. Continued patchy and consolidative opacities are seen in the mid and lower left lung and right lung base. No large pleural effusion or pneumothorax. The cardiac silhouette is prominent. IMPRESSION: 1. Decreased lung volumes with stable patchy and consolidative opacities in the mid and lower left lung and right lung base. Findings may represent atelectasis, infection, and/or edema. 2. Stable endotracheal tube and enteric tube. A right PICC is in place although the tip is not well seen on this exam due to technique. Dictated by: Dictated on workstation # [id number]
[2022-06-08] MEDS: LACRI-LUBE OPTHALMIC OINT 3.5 GM TUBE OU SCH ×2 (09:39→21:02)
[2022-06-08] MEDS: fentaNYL DRIP PRE-MIX 250 ML IV SCH ×2 (09:39→22:46)
[2022-06-08 10:07] VITALS: BP 101/57
--- NOTE | 2022-06-08 10:20 | Progress Note - Hospitalist ---
GUILHERME JOHNSON 06/08/22 1020: Subjective HPI/CC On Admission Date Seen by Provider: Jun 08, 2022 Time Seen by Provider: 10:05 CC: Acute respiratory failure HPI: This is a 46 yr old male who presented to the ER with SOB. He was found to have CHF and he failed BiPAP. He required intubation. His vent settings are 500/22/10 at 100%. Sister is at the bedside. Considering his CO2 is severely elevated at 101, his pH is 7.23 he has a guarded prognosis at this point. Chest x-ray showed opacities, will check procalcitonin and labs this morning. Subjective/Events-last exam Patient remains sedated and intubated on vent today. Nurse reports about 16 L have been drained off since starting diuresis with Furosemide. His liver enzymes are improving. Some eye proptosis was also observed at exam by nurse. Crackles can be heard throughout lower lung lobes. Secretions are thicker today. Vent: 500/15/10/70 AB.472/57.2/60 Focused Exam Lactate Level 06/07/22 08:00: Lactic Acid Level 1.52 Objective Exam Vital Signs Vital Signs Date Time Temp Pulse Resp B/P (MAP) Pulse Ox O2 Delivery O2 Flow Rate FiO2 06/08/22 09:49 70 06/08/22 09:39 80 109/62 06/08/22 09:00 36.8 15 92 Mechanical Ventilator 70.00 Capillary Refill : Less Than 3 Seconds General Appearance: Obese Respiratory: Crackles, Decreased Breath Sounds, Respiratory Distress Cardiovascular: Regular Rate, Rhythm Genital/Rectal: Other (scrotal swelling ) Extremity: Pedal Edema, Swelling Skin: Normal Color, Warm/Dry Results/Procedures Lab Laboratory Tests 06/08/22 03:45 Patient resulted labs reviewed. Assessment/Plan Assessment and Plan Assess & Plan/Chief Complaint Assessment: Acute Hypercapnic Respiratory Failure Acute Flash Pulmonary Edema with Anasarca Unresponsive Episode due to narcotics HTN with recent increase in Losartan dose Normal Stress test 5 days ago Elevated Liver Enzymes due to CHF Type 2 NSTEMI Hx of sleep apnea Obesity Noncompliance with medical management of prior conditions Plan: Continue tx with diuretics (furosemide) Continue home meds Monitor labs and replace prn Monitor BP Lacrilube ordered for eyes TSH ordered to evaluate possible thyroid imbalance eICU to increase PEEP on vent settings to 12 from 10 Critical Care: Ventilator Management ANISA ZHU DO 06/09/22 0543: Subjective Subjective/Events-last exam Pt is still ventilated 16L output ABG is 7.47/57/60 Ventilator setting are 500/15/10/70% Echocardiogram showed 55% ejection fraction Chest x-ray is pending Supervisory-Addendum Brief Verification & Attestation Participated in pt care: history, MDM, physical Personally performed: exam, history, MDM, supervision of care Care discussed with: Medical Student Procedures: n/a Results interpretation: Verified all documentation Verification and Attestation of Medical Student E/M Service A medical student performed and documented this service in my presence. I reviewed and verified all information documented by the medical student and made modifications to such information, when appropriate. I personally performed the physical exam and medical decision making. Anisa Zhu, Jun 09, 2022,05:43 GUILHERME JOHNSON Jun 08, 2022 10:20 ANISA ZHU DO Jun 09, 2022 05:43
--- NOTE | 2022-06-08 14:53 | Progress Note - Cardiology ---
Cardiology SOAP Progress Note Subjective: Non-communicative Objective: I&O/Vital Signs 06/08/22 06/08/22 06/08/22 06/08/22 02:55 02:55 03:00 04:00 Temp 36.7 36.2 Pulse 83 83 83 80 Resp 15 15 B/P (MAP) 98/57 98/57 Pulse Ox 91 92 O2 Delivery Mechanical Ventilator Mechanical Ventilator O2 Flow Rate 70.00 70.00 06/08/22 06/08/22 06/08/22 06/08/22 04:00 05:00 05:05 05:07 Temp 36.1 Pulse 79 79 79 Resp 15 B/P (MAP) 98/57 98/57 Pulse Ox 91 92 O2 Delivery Mechanical Ventilator Mechanical Ventilator O2 Flow Rate 70.00 FiO2 70 06/08/22 06/08/22 06/08/22 06/08/22 06:00 06:17 06:24 07:00 Temp 36.9 36.8 Pulse 78 78 80 Resp 15 15 15 B/P (MAP) Pulse Ox 91 92 91 O2 Delivery Mechanical Ventilator Mechanical Ventilator O2 Flow Rate 70.00 70.00 FiO2 70 70 06/08/22 06/08/22 06/08/22 06/08/22 07:00 07:55 08:00 08:00 Temp 36.5 36.9 Pulse 82 81 Resp 15 B/P (MAP) Pulse Ox 91 92 O2 Delivery Mechanical Ventilator Mechanical Ventilator O2 Flow Rate 70.00 FiO2 70 06/08/22 06/08/22 06/08/22 06/08/22 09:00 09:05 09:07 09:39 Temp 36.8 Pulse 80 80 80 80 Resp 15 B/P (MAP) 109/62 109/62 109/62 Pulse Ox 92 O2 Delivery Mechanical Ventilator O2 Flow Rate 70.00 06/08/22 06/08/22 06/08/22 06/08/22 09:49 10:00 10:07 11:00 Temp 36.8 36.7 Pulse 79 78 81 Resp 15 15 15 B/P (MAP) Pulse Ox 92 92 92 O2 Delivery Mechanical Ventilator Mechanical Ventilator O2 Flow Rate 70.00 70.00 FiO2 70 70 06/08/22 06/08/22 06/08/22 06/08/22 11:29 12:00 12:04 12:04 Temp 36.7 36.9 Pulse 79 81 81 Resp 15 B/P (MAP) 101/57 101/57 Pulse Ox 92 O2 Delivery Mechanical Ventilator O2 Flow Rate 70.00 06/08/22 06/08/22 06/08/22 13:00 13:00 14:00 Temp 37.0 36.7 Pulse 80 83 81 Resp 15 15 B/P (MAP) Pulse Ox 92 93 O2 Delivery Mechanical Ventilator Mechanical Ventilator O2 Flow Rate 70.00 70.00 06/07/22 23:59 Intake Total 363 ml Output Total 5450 ml Balance -5087 ml Constitutional: other (intubated and sedated) Respiratory: other (intubated; good air entry) Cardiovascular: regular rate-rhythm; No JVD; S1 and S2 Gastrointestional: soft, audible bowel sounds Genital/Rectal: other (scrotal and penile swelling) Extremities: other (mod bilat LE swelling) Neurologic/Psychiatric: other (intubated and sedated - unable to cooperate with exam) Skin: other (red rash to upper thighs and lower abdomen) Results/Procedures: Labs Laboratory Tests 06/07/22 19:27: Glucometer 115H 06/08/22 02:11: Glucometer 132H 06/08/22 03:45: White Blood Count 10.3, Red Blood Count 5.50, Hemoglobin 13.4, Hematocrit 44, Mean Corpuscular Volume 80, Mean Corpuscular Hemoglobin 24L, Mean Corpuscular Hemoglobin Concent 31L, Red Cell Distribution Width 15.9H, Platelet Count 246, Mean Platelet Volume 9.1, Immature Granulocyte % (Auto) 0, Neutrophils (%) (Auto) 80H, Lymphocytes (%) (Auto) 12, Monocytes (%) (Auto) 7, Eosinophils (%) (Auto) 0, Basophils (%) (Auto) 0, Neutrophils # (Auto) 8.3H, Lymphocytes # (Auto) 1.3, Monocytes # (Auto) 0.7, Eosinophils # (Auto) 0.0, Basophils # (Auto) 0.0, Immature Granulocyte # (Auto) 0.0, Sodium Level 145, Potassium Level 3.1L, Chloride Level 95L, Carbon Dioxide Level 34H, Anion Gap 16H, Blood Urea Nitrogen 16, Creatinine 1.03, Estimat Glomerular Filtration Rate 91, BUN/Creatinine Ratio 16, Glucose Level 113H, Calcium Level 8.8, Phosphorus Level 4.7, Magnesium Level 2.0, Total Bilirubin 1.1H, Direct Bilirubin 0.5H, Indirect Bilirubin 0.6, Aspartate Amino Transf (AST/SGOT) 90H, Alanine Aminotransferase (ALT/SGPT) 181H, Alkaline Phosphatase 63, Total Protein 5.9L, Albumin 3.4, Thyroid Stimulating Hormone (TSH) 1.03 06/08/22 03:55: Bedside Blood Gas pH (LAB) 7.472H, Bedside Blood Gas pCO2 (LAB) 57.2H, Bedside Blood Gas pO2 (LAB) 60L, Bedside Blood Gas HCO3 (LAB) 41.9*H, POC Blood Gas Total CO2 Calc 44*H, Bedside Bl Gas O2 Saturation (Calc) 91L, Bedside Arterial Blood Base Excess 18H 06/08/22 11:33: Glucometer 114H Microbiology 06/07/22 Blood Culture - Preliminary, Resulted Probable Coag Negative Staph 06/07/22 Gram Stain - Final, Resulted 06/07/22 Sputum Culture, Resulted Pending A/P: Assessment: Respiratory failure requiring intubation - likely multi-factorial d/t acute diastolic CHF and obesity -hypoventilation syndrome Acute diastolic CHF - Echocardiogram of 06-07-22 showed LVEF 55-60% Elevated liver enzymes - possibly hepatobiliary congestion d/t CHF - improving with aggressive diuresis MPI 06-02-[address] Phillip: Good exercise tolerance for a total of 5 minutes on [place] protocol, 7 METs, achieving 86 percent of maximum expected heart rate. Minimal nondiagnostic EKG changes with exercise returned to baseline during recovery. No arrhythmia was noted. Hypertensive response to exercise with peak blood pressure 204/112 return to baseline during recovery HTN - controlled Obesity - BMI approx 47 Plan: Respiratory failure for reasons noted above - continue to treat with diuretics - good response Elevated liver enzymes - likely secondary to hepatobiliary congestion - improving Monitor lab - replace electrolytes as indicated Advise out pt sleep studies TIFFANIE MONTANEZ MD [facility] Jun 08, 2022 14:53
[2022-06-08] MEDS: aCETylcysteine 20% (MUCOMYST) 4 ML SOLN VIAL INH SCH ×2 (14:55→21:38)
[2022-06-08 14:56] VITALS: BP 114/69
[2022-06-08 18:29] VITALS: BP 108/65
[2022-06-08 21:38] VITALS: BP 124/65
[2022-06-09] MEDS: PROPOFOL DRIP (ICU) 100 ML IV SCH ×6 (00:42→22:09)
[2022-06-09 02:31] VITALS: BP 109/61
[2022-06-09] MEDS: RT-ALBUTEROL/IPRATROPIUM 3 ML (DUONEB) VIAL INH SCH ×6 (02:31→20:56)
[2022-06-09] MEDS: aCETylcysteine 20% (MUCOMYST) 4 ML SOLN VIAL INH SCH ×4 (02:31→20:56)
[2022-06-09 04:41] LABS: ABG OXYGEN SATURATION 95 % (94-100); ABG PH 7.35 (7.37-7.43); ABG PO2 75 MMHG (79-93)
[2022-06-09 04:42] LABS: ALLENS TEST YES-POS; INSPIRED O2 90%; VENTILATOR YES
[2022-06-09 04:42] LABS: BASOPHILS # (AUTO) 0.1 10^3/uL (0.0-0.1); BASOPHILS % (AUTO) 1 % (0-10); EOSINOPHILS # (AUTO) 0.2 10^3/uL (0.0-0.3); EOSINOPHILS % (AUTO) 2 % (0-10); HEMATOCRIT 48 % (40-54); LYMPHOCYTES # (AUTO) 1.5 10^3/uL (1.0-4.0); LYMPHOCYTES % (AUTO) 15 % (12-44); MEAN CORPUSCULAR HEMOGLOBIN 24 pg (25-34); MEAN CORPUSCULAR HGB CONC 29 g/dL (32-36); MEAN CORPUSCULAR VOLUME 82 fL (80-99); MEAN PLATELET VOLUME 9.3 fL (9.0-12.2); MONOCYTES # (AUTO) 0.8 10^3/uL (0.0-1.0); MONOCYTES % (AUTO) 8 % (0-12); NEUTROPHILS # (AUTO) 7.1 10^3/uL (1.8-7.8); NEUTROPHILS % (AUTO) 74 % (42-75); PLATELET COUNT 265 10^3/uL (130-400); WHITE BLOOD COUNT 9.6 10^3/uL (4.3-11.0)
[2022-06-09 04:43] LABS: PATIENT TEMP 36.5
[2022-06-09 04:44] LABS: ABG PCO2 82 MMHG (35-45); ABG TCO2 46.2 MMOL/L (21.0-31.0)
[2022-06-09 04:53] LABS: POTASSIUM 3.3 MMOL/L (3.6-5.0)
[2022-06-09 04:54] LABS: CALCIUM 8.8 MG/DL (8.5-10.1)
[2022-06-09 04:59] LABS: CREATININE SERUM 1.07 MG/DL (0.60-1.30); PHOSPHORUS 5.4 MG/DL (2.3-4.7)
[2022-06-09 05:01] LABS: MAGNESIUM 2.2 MG/DL (1.6-2.4)
[2022-06-09] MEDS: KCL 20 MEQ TAB (K-DUR) PO SCH (05:04)
[2022-06-09] MEDS: POTASSIUM CL 10MEQ/50ML IVPB 50 ML IV SCH ×5 (05:04→08:15)
[2022-06-09] MEDS: MAGNESIUM 1 GM/100 ML IVPB 100 ML IV SCH (05:06)
[2022-06-09] MEDS ORDERED: acetaZOLAMIDE INJECTION 250 MG in SYRINGE-IVPB 1 SYRINGE IV SCH (06:00)
[2022-06-09] MEDS: FUROSEMIDE 40 MG/4 ML INJ (LASIX) IVP SCH ×2 (06:02→16:53)
[2022-06-09] MEDS: CATHETER FLUSH 10 ML SYR IV SCH ×3 (06:05→21:21)
--- NOTE | 2022-06-09 06:37 | Occ Therapy Progress Note ---
Therapy Progress Note Pt currently intubated. OT to monitor pt's status then will initiate treatment when pt is medically stable and able to actively participate in skilled therapy. ESTEPHANIE GARCIA Jun 09, 2022 06:37
[2022-06-09 07:23] VITALS: BP_SYST 109; BP_SYST 127; BP_DIAS 61; BP_DIAS 67
--- NOTE | 2022-06-09 07:58 | Diagnostic Imaging Report ---
Indication: Shortness of breath Portable chest 5:08 AM There is ET tube projects over the trachea above the thoracic inlet. NG tube appears to enter the stomach. Heart size and pulmonary vascularity have increased. There is some perihilar infiltrates bilaterally. IMPRESSION: Bilateral perihilar infiltrates greater on left than on the right and not significantly change from previous day. ET tube appears to be above the thoracic inlet. Dictated by: Dictated on workstation # [id number]
--- NOTE | 2022-06-09 08:03 | Physical Therapy Progress Note ---
Therapy Progress Note Patient currently sedated and intubated. PT will continue to monitor patient status and initiate treatment when patient is medically stable and able to actively participate with skilled therapy. GERBER ETIENNE PT Jun 09, 2022 08:03
[2022-06-09] MEDS: acetaZOLAMIDE INJECTION 250 MG in SYRINGE-IVPB 1 SYRINGE IV SCH ×2 (08:12→16:53)
[2022-06-09] MEDS: LOSARTAN 50 MG (COZAAR) TAB PO SCH (08:15)
[2022-06-09] MEDS: PANTOPRAZOLE 40 MG (PROTONIX) VIAL IV SCH (08:15)
[2022-06-09] MEDS: LACRI-LUBE OPTHALMIC OINT 3.5 GM TUBE OU SCH ×2 (08:16→21:21)
--- NOTE | 2022-06-09 08:46 | Tele-ICU Progress Note ---
Subjective Date Seen by a Provider: Jun 09, 2022 Time Seen by a Provider: 08:46 Subjective/Events-last exam (Tele-ICU Physician , Progress note) Available chart/ vitals / labs / Images reviewed H&P is from ER notes Patient's information available about PMH, allergy reviewed in EMR. ROS as per chart and RN report Video assessment done using teleICU camera, rest of exam as per RN Discussed with RN. Patient today remained on mechanical ventilation. He has been diuresing well with the increase in the Lasix. CXR reviewed and ET tube migrated upwards and called RN and advised to advance by 2 cm. His blood pressure is borderline. His peripheral edema is improving per RN. Video visit made. Currently his FiO2 is 70% and PEEP at 12. ABG showed worsening respiratory acidosis .probably due to ET migration. will repeat abg later today. Review of Systems ROS PER RN Sepsis Event Evaluation Height, Weight, BMI Height: '" Weight: lbs. oz. kg; 44.30 BMI Method: Focused Exam Lactate Level 06/07/22 08:00: Lactic Acid Level 1.52 Exam Exam Patient acknowledged, consented, and participated in this virtual visit which was conducted using real time audio/video Vital Signs Date Time Temp Pulse Resp B/P (MAP) Pulse Ox O2 Delivery O2 Flow Rate FiO2 06/09/22 08:00 84 15 94 Mechanical Ventilator 65.00 06/09/22 08:00 36.4 06/09/22 08:00 94 Mechanical Ventilator 65 06/09/22 07:23 82 15 94 65 06/09/22 07:00 85 06/09/22 07:00 84 15 95 Mechanical Ventilator 65.00 06/09/22 06:04 83 15 95 Mechanical Ventilator 70.00 06/09/22 05:51 70 06/09/22 05:06 36.7 88 14 96 Mechanical Ventilator 70.00 06/09/22 04:58 89 101/85 06/09/22 04:06 36.7 86 15 96 Mechanical Ventilator 70.00 06/09/22 04:00 96 Mechanical Ventilator 70 06/09/22 03:06 36.8 89 13 96 Mechanical Ventilator 70.00 06/09/22 02:31 88 15 96 70 06/09/22 02:06 36.5 88 15 95 Mechanical Ventilator 70.00 06/09/22 01:50 70 06/09/22 01:49 88 105/55 06/09/22 01:06 36.2 90 11 95 Mechanical Ventilator 70.00 06/09/22 01:00 91 06/09/22 01:00 91 115/63 06/09/22 00:42 92 108/56 06/09/22 00:06 36.6 96 22 96 Mechanical Ventilator 70.00 06/08/22 23:50 95 Mechanical Ventilator 70 06/08/22 23:06 37.0 82 16 93 Mechanical Ventilator 70.00 06/08/22 22:46 104 123/56 06/08/22 22:06 37.0 93 17 92 Mechanical Ventilator 70.00 06/08/22 21:45 70 06/08/22 21:38 91 15 93 70 06/08/22 21:06 37.0 92 15 93 Mechanical Ventilator 70.00 06/08/22 21:00 92 116/67 06/08/22 20:06 37.1 90 15 93 Mechanical Ventilator 70.00 06/08/22 20:00 92 Mechanical Ventilator 70 06/08/22 19:00 Mechanical Ventilator 70.00 06/08/22 19:00 87 06/08/22 18:29 83 15 92 70 06/08/22 18:00 37.1 82 15 92 Mechanical Ventilator 70.00 06/08/22 17:54 70 06/08/22 17:00 36.9 84 15 92 Mechanical Ventilator 70.00 06/08/22 16:04 85 114/69 06/08/22 16:04 85 114/69 06/08/22 16:00 36.8 82 15 92 Mechanical Ventilator 70.00 06/08/22 15:42 94 Mechanical Ventilator 70 06/08/22 15:00 36.8 85 15 92 Mechanical Ventilator 70.00 06/08/22 14:56 84 15 93 70 06/08/22 14:00 36.7 81 15 93 Mechanical Ventilator 70.00 06/08/22 13:54 70 06/08/22 13:39 84 114/69 06/08/22 13:00 83 06/08/22 13:00 37.0 80 15 92 Mechanical Ventilator 70.00 06/08/22 12:04 81 101/57 06/08/22 12:04 81 101/57 06/08/22 12:00 36.9 79 15 92 Mechanical Ventilator 70.00 06/08/22 12:00 94 Mechanical Ventilator 70 06/08/22 11:29 36.7 06/08/22 11:00 36.7 81 15 92 Mechanical Ventilator 70.00 06/08/22 10:07 78 15 92 70 06/08/22 10:00 36.8 79 15 92 Mechanical Ventilator 70.00 06/08/22 09:49 70 06/08/22 09:39 80 109/62 06/08/22 09:07 80 109/62 06/08/22 09:05 80 109/62 06/08/22 09:00 36.8 80 15 92 Mechanical Ventilator 70.00 I & O 06/09/22 07:00 Intake Total 640 ml Output Total 5825 ml Balance -5185 ml Height & Weight Height: '" Weight: lbs. oz. kg; 44.30 BMI Method: General Appearance: No Apparent Distress, Obese, Other (sedated) HEENT: Pharynx Normal, Moist Mucous Membranes Neck: Full Range of Motion, Normal Inspection, Non Tender Respiratory: Crackles, Decreased Breath Sounds Cardiovascular: Tachycardia Capillary Refill: Less Than 3 Seconds Gastrointestinal: normal bowel sounds, non tender Extremity: Normal Range of Motion, Non Tender, No Calf Tenderness, Pedal Edema, Swelling (generalized lower extremity swelling) Neurologic/Psychiatric: Alert, Oriented x3, Other (sedatsed) Skin: Normal Color, Warm/Dry Results Lab Laboratory Tests 06/08/22 03:45 06/09/22 04:33 Assessment/Plan Assessment/Plan 1. Acute on chronic hypercarbic respiratory failure worsened today probably due to migration of ET tube upwards. 2. Heart failure with a preserved left ventricular ejection fraction slowly improving. 3. Respiratory acidosis got worse. Recommendations 1. Continue current mechanical ventilatory support. He is not ready for SBT. 2. Continue diuretic therapy per cardiology 3. no Diamox for today 4. Advance ET tube and repeat ABG's later today. 5. DVT and ulcer prophylaxis 6. Treatment with collaboration of consultants and primary care team. Critical Care: Ventilator Management Time spent with patient (mins): 35 FITO VELEZ MD Jun 09, 2022 08:46
[2022-06-09] MEDS: fentaNYL DRIP PRE-MIX 250 ML IV SCH ×2 (09:08→21:17)
--- NOTE | 2022-06-09 09:50 | Progress Note - Cardiology ---
Cardiology SOAP Progress Note Subjective: Intubated, on mech vent, non-communicative Objective: I&O/Vital Signs 06/08/22 06/08/22 06/08/22 06/08/22 22:06 22:46 23:06 23:50 Temp 37.0 37.0 Pulse 93 104 82 Resp 17 16 B/P (MAP) 123/56 Pulse Ox 92 93 95 O2 Delivery Mechanical Ventilator Mechanical Ventilator Mechanical Ventilator O2 Flow Rate 70.00 70.00 FiO2 70 06/09/22 06/09/22 06/09/22 06/09/22 00:06 00:42 01:00 01:00 Temp 36.6 Pulse 96 92 91 91 Resp 22 B/P (MAP) 108/56 115/63 Pulse Ox 96 O2 Delivery Mechanical Ventilator O2 Flow Rate 70.00 06/09/22 06/09/22 06/09/22 06/09/22 01:06 01:49 01:50 02:06 Temp 36.2 36.5 Pulse 90 88 88 Resp 11 15 B/P (MAP) 105/55 Pulse Ox 95 95 O2 Delivery Mechanical Ventilator Mechanical Ventilator O2 Flow Rate 70.00 70.00 FiO2 70 06/09/22 06/09/22 06/09/22 06/09/22 02:31 03:06 04:00 04:06 Temp 36.8 36.7 Pulse 88 89 86 Resp 15 13 15 B/P (MAP) Pulse Ox 96 96 96 96 O2 Delivery Mechanical Ventilator Mechanical Ventilator Mechanical Ventilator O2 Flow Rate 70.00 70.00 FiO2 70 70 06/09/22 06/09/22 06/09/22 06/09/22 04:58 05:06 05:51 06:04 Temp 36.7 Pulse 89 88 83 Resp 14 15 B/P (MAP) 101/85 Pulse Ox 96 95 O2 Delivery Mechanical Ventilator Mechanical Ventilator O2 Flow Rate 70.00 70.00 FiO2 70 06/09/22 06/09/22 06/09/22 06/09/22 07:00 07:00 07:23 08:00 Pulse 84 85 82 Resp 15 15 B/P (MAP) Pulse Ox 95 94 94 O2 Delivery Mechanical Ventilator Mechanical Ventilator O2 Flow Rate 65.00 FiO2 65 65 06/09/22 06/09/22 06/09/22 06/09/22 08:00 08:00 09:04 09:32 Temp 36.4 Pulse 84 Resp 15 B/P (MAP) 109/59 Pulse Ox 94 O2 Delivery Mechanical Ventilator O2 Flow Rate 65.00 FiO2 65 06/09/22 00:00 Intake Total 510 ml Output Total 3250 ml Balance -2740 ml Constitutional: other (intubated and sedated) Respiratory: other (intubated; good air entry) Cardiovascular: regular rate-rhythm; No JVD; S1 and S2 Gastrointestional: soft, audible bowel sounds Genital/Rectal: other (scrotal and penile swelling) Extremities: other (mod bilat LE swelling) Neurologic/Psychiatric: other (intubated and sedated - unable to cooperate with exam) Skin: other (red rash to upper thighs and lower abdomen) Results/Procedures: Labs Laboratory Tests 06/08/22 11:33: Glucometer 114H 06/08/22 18:32: Glucometer 98 06/09/22 00:28: Glucometer 110 06/09/22 04:19: Blood Gas Puncture Site UNKNOWN, Blood Gas Patient Temperature 36.5, Arterial Blood pH 7.35L, Arterial Blood Partial Pressure CO2 82*H, Arterial Blood Partial Pressure O2 75L, Arterial Blood HCO3 44*H, Arterial Blood Total CO2 46.2*H, Ar terial Blood Oxygen Saturation 95, Arterial Blood Base Excess 17.0H, Hasmukh Test YES-POS, Blood Gas Ventilator Setting YES, Blood Gas Inspired Oxygen 90% 06/09/22 04:33: White Blood Count 9.6, Red Blood Count 5.82H, Hemoglobin 14.0, Hematocrit 48, Mean Corpuscular Volume 82, Mean Corpuscular Hemoglobin 24L, Mean Corpuscular Hemoglobin Concent 29L, Red Cell Distribution Width 16.5H, Platelet Count 265, Mean Platelet Volume 9.3, Immature Granulocyte % (Auto) 0, Neutrophils (%) (Auto) 74, Lymphocytes (%) (Auto) 15, Monocytes (%) (Auto) 8, Eosinophils (%) (Auto) 2, Basophils (%) (Auto) 1, Neutrophils # (Auto) 7.1, Lymphocytes # (Auto) 1.5, Monocytes # (Auto) 0.8, Eosinophils # (Auto) 0.2, Basophils # (Auto) 0.1, Immature Granulocyte # (Auto) 0.0, Sodium Level 147H, Potassium Level 3.3L, Chloride Level 96L, Carbon Dioxide Level 35H, Anion Gap 16H, Blood Urea Nitrogen 17, Creatinine 1.07, Estimat Glomerular Filtration Rate 87, BUN/Creatinine Ratio 16, Glucose Level 113H, Calcium Level 8.8, Phosphorus Level 5.4H, Magnesium Level 2.2, Triglycerides Level 141 Microbiology 06/07/22 Blood Culture - Preliminary, Resulted No growth 06/07/22 Gram Stain - Final, Resulted 06/07/22 Sputum Culture - Preliminary, Resulted Usual upper respiratory tonny A/P: Assessment: Respiratory failure requiring intubation - likely multi-factorial d/t acute diastolic CHF and obesity -hypoventilation syndrome Acute diastolic CHF - Echocardiogram of 06-07-22 showed LVEF 55-60% Elevated liver enzymes - possibly hepatobiliary congestion d/t CHF - improving with aggressive diuresis MPI 06-02-[address] hPillip: Good exercise tolerance for a total of 5 minutes on [place] protocol, 7 METs, achieving 86 percent of maximum expected heart rate. Minimal nondiagnostic EKG changes with exercise returned to baseline during recovery. No arrhythmia was noted. Hypertensive response to exercise with peak blood pressure 204/112 return to baseline during recovery HTN - controlled Obesity - BMI approx 47 Plan: * Continue diuretics * Replenish electrolytes * Monitor labs * We recommend Urology eval for scrotal swelling (Dr Garcia managing) TIFFANIE MONTANEZ MD FACP [facility] Jun 09, 2022 09:50
--- NOTE | 2022-06-09 09:59 | Progress Note - Hospitalist ---
GUILHERME JOHNSON 06/09/22 0959: Subjective HPI/CC On Admission Date Seen by Provider: Jun 09, 2022 Time Seen by Provider: 09:51 CC: Acute respiratory failure HPI: This is a 46 yr old male who presented to the ER with SOB. He was found to have CHF and he failed BiPAP. He required intubation. His vent settings are 500/22/10 at 100%. Sister is at the bedside. Considering his CO2 is severely elevated at 101, his pH is 7.23 he has a guarded prognosis at this point. Chest x-ray showed opacities, will check procalcitonin and labs this morning. Subjective/Events-last exam Patient is still sedated and intubated on vent today. Nurse reports fluids continue to be drained off. Crackles can still be heard throughout lung lobes today. Breath sounds are more apparent than yesterday. Potassium 3.3 today. CXR from today shows bilateral perihilar infiltrates greater on left then right, with no significant change from yesterday. Vent: 500// AB.35/82/75 Focused Exam Lactate Level 06/07/22 08:00: Lactic Acid Level 1.52 Objective Exam Vital Signs Vital Signs Date Time Temp Pulse Resp B/P (MAP) Pulse Ox O2 Delivery O2 Flow Rate FiO2 06/09/22 09:32 65 06/09/22 09:04 109/59 06/09/22 08:00 84 15 94 Mechanical Ventilator 65.00 06/09/22 08:00 36.4 Capillary Refill : Less Than 3 Seconds General Appearance: Obese Respiratory: Crackles, Respiratory Distress Cardiovascular: Tachycardia Gastrointestinal: Distended Genital/Rectal: Other (scrotal swelling) Extremity: Pedal Edema, Swelling Skin: Normal Color, Warm/Dry Results/Procedures Lab Laboratory Tests 06/09/22 04:33 Patient resulted labs reviewed. Assessment/Plan Assessment and Plan Assess & Plan/Chief Complaint Assessment: Acute Hypercapnic Respiratory Failure Acute Flash Pulmonary Edema with Anasarca Unresponsive Episode due to narcotics HTN with recent increase in Losartan dose Normal Stress test 5 days ago Elevated Liver Enzymes due to CHF Type 2 NSTEMI Hx of sleep apnea Obesity Noncompliance with medical management of prior conditions Plan: Maintain Ventilator Continue tx with diuretics (furosemide) Continue home meds Monitor labs Potassium replacement ordered Monitor BP Critical Care: Ventilator Management ANISA ZHU DO 06/09/222049: Subjective Subjective/Events-last exam Pt is doing a lot better Diuresis continues to be successful Hydrocele diagnosed by Dr. Walker, urology consult, due to scrotal edema ABG is 7.35/82/75 Vent settings are 500/15/12/65% Objective Exam General Appearance: No Apparent Distress, WD/WN, Chronically ill, Obese Respiratory: Crackles Cardiovascular: Tachycardia Supervisory-Addendum Brief Verification & Attestation Participated in pt care: history, MDM, physical Personally performed: exam, history, MDM, supervision of care Care discussed with: Medical Student Procedures: n/a Results interpretation: Verified all documentation Verification and Attestation of Medical Student E/M Service A medical student performed and documented this service in my presence. I reviewed and verified all information documented by the medical student and made modifications to such information, when appropriate. I personally performed the physical exam and medical decision making. Anisa hZu Jun 09, 2022,20:49 GUILHERME JOHNSON Jun 09, 2022 09:59 ANISA ZHU DO Jun 09, 2022 20:50
[2022-06-09 10:16] VITALS: BP 108/62
[2022-06-09 13:56] LABS: ABG BASE EXCESS 14.6 MMOL/L (-2.5-2.5); ABG OXYGEN SATURATION 95 % (94-100); ABG PCO2 64 MMHG (35-45); ABG PH 7.41 (7.37-7.43); ABG PO2 67 MMHG (79-93)
[2022-06-09 14:00] LABS: ALLENS TEST YES-POS
[2022-06-09 14:01] LABS: PATIENT TEMP 36.7; VENTILATOR YES
--- NOTE | 2022-06-09 14:24 | Diagnostic Imaging Report ---
PROCEDURE: US Scrotum. TECHNIQUE: Multiple real-time grayscale images were obtained over the scrotum in various projections bilaterally. INDICATION: Bilateral hydroceles. FINDINGS: Right testicle measures 3.7 x 2.5 x 2.9 cm, and the left testicle measures 3.9 x 2.7 x 2.8 cm. Both testes show homogeneous echotexture. No discrete testicular mass is detected. There is blood flow to both testes. The right epididymis does appear to be somewhat heterogeneous and shows some increased vascularity. Epididymitis cannot be entirely excluded. Left epididymis contains a 7 mm cyst. Overlying scrotal skin is thickened. There is no definite hydrocele or varicocele. IMPRESSION: 1. No evidence of testicular mass or vascular compromise. 2. Small left epididymal head cyst. There is some slight enlargement, heterogeneity, and increased vascularity to the right epididymis. Epididymitis cannot be entirely excluded. 3. Generalized scrotal wall thickening. There is no evidence of hydrocele. Dictated by: Dictated on workstation # [id number]
[2022-06-09 14:47] VITALS: BP 110/52
--- NOTE | 2022-06-09 16:47 | CONSULTATION REPORT ---
DATE OF SERVICE: 06/09/2022 ATTENDING PHYSICIAN: Dr. Whitt and Dr. Garcia. SUMMARY: A 46-year-old white man with exacerbation of congestive heart failure and severe shortness of breath, admitted to the ICU, put on the respirator. I was asked to see him because of his scrotal swelling, which did not appear to be from the edema according to manager field service, Dr. Whitt. The patient is on the respirator. I examined him and indeed he has large bilateral hydroceles soft, I can feel the testicles. IMPRESSION: Bilateral hydroceles, "large". PLAN: Scrotal ultrasound to confirm the testicle to be normal and the hydrocele. Later on once the patient is recovered from his present medical condition, we discussed with him his options. If the hydrocele is asymptomatic, just observe. If it is symptomatic ideally, the solution is surgery with bilateral hydrocelectomy or aspiration with needles; however, that have some chance of infection and definite recurrence. We will discuss this with the patient once he is out of the present condition. CC: Dr. Whitt - Requested but unable to deliver Job ID: [id number] DocumentID: [id number] Dictated Date: 06/09/2022 12:19:40 Graphics Artist Date: 06/09/2022 14:44:11 Dictated By: PATRICIO ROMEO MD
[2022-06-09 18:17] VITALS: BP 119/55
[2022-06-09 21:16] VITALS: BP 109/53
[2022-06-10] MEDS: PROPOFOL DRIP (ICU) 100 ML IV SCH ×4 (02:07→17:17)
[2022-06-10] MEDS: acetaZOLAMIDE INJECTION 250 MG in SYRINGE-IVPB 1 SYRINGE IV SCH (02:08)
[2022-06-10] MEDS: RT-ALBUTEROL/IPRATROPIUM 3 ML (DUONEB) VIAL INH SCH ×6 (02:27→21:55)
[2022-06-10] MEDS: aCETylcysteine 20% (MUCOMYST) 4 ML SOLN VIAL INH SCH ×4 (02:27→21:55)
[2022-06-10 02:35] VITALS: BP 115/63
[2022-06-10 03:52] LABS: ABG BASE EXCESS 13.6 MMOL/L (-2.5-2.5); ABG OXYGEN SATURATION 92 % (94-100); ABG PH 7.35 (7.37-7.43); ABG PO2 63 MMHG (79-93); ALLENS TEST POS; INSPIRED O2 90%; VENTILATOR YES
[2022-06-10 03:53] LABS: BASOPHILS # (AUTO) 0.1 10^3/uL (0.0-0.1); BASOPHILS % (AUTO) 1 % (0-10); EOSINOPHILS # (AUTO) 0.2 10^3/uL (0.0-0.3); EOSINOPHILS % (AUTO) 2 % (0-10); HEMATOCRIT 49 % (40-54); HEMOGLOBIN 14.5 g/dL (13.3-17.7); LYMPHOCYTES # (AUTO) 1.4 10^3/uL (1.0-4.0); LYMPHOCYTES % (AUTO) 14 % (12-44); MEAN CORPUSCULAR HEMOGLOBIN 24 pg (25-34); MEAN CORPUSCULAR HGB CONC 29 g/dL (32-36); MEAN CORPUSCULAR VOLUME 82 fL (80-99); MEAN PLATELET VOLUME 9.9 fL (9.0-12.2); MONOCYTES # (AUTO) 0.8 10^3/uL (0.0-1.0); MONOCYTES % (AUTO) 8 % (0-12); NEUTROPHILS # (AUTO) 7.4 10^3/uL (1.8-7.8); NEUTROPHILS % (AUTO) 75 % (42-75); PATIENT TEMP 36.8; PLATELET COUNT 272 10^3/uL (130-400); WHITE BLOOD COUNT 9.9 10^3/uL (4.3-11.0)
[2022-06-10 03:54] LABS: ABG PCO2 73 MMHG (35-45)
[2022-06-10 04:00] LABS: POTASSIUM 3.7 MMOL/L (3.6-5.0)
[2022-06-10 04:06] LABS: CREATININE SERUM 1.06 MG/DL (0.60-1.30); PHOSPHORUS 4.2 MG/DL (2.3-4.7)
[2022-06-10 04:08] LABS: MAGNESIUM 2.4 MG/DL (1.6-2.4)
[2022-06-10] MEDS: CATHETER FLUSH 10 ML SYR IV SCH ×3 (05:13→21:40)
[2022-06-10] MEDS: POTASSIUM CL 10MEQ/50ML IVPB 50 ML IV SCH (05:13)
[2022-06-10] MEDS: MAGNESIUM 1 GM/100 ML IVPB 100 ML IV SCH (05:13)
[2022-06-10] MEDS: KCL 20 MEQ TAB (K-DUR) PO SCH (05:13)
[2022-06-10] MEDS: FUROSEMIDE 40 MG/4 ML INJ (LASIX) IVP SCH ×2 (06:12→17:11)
--- NOTE | 2022-06-10 06:48 | Occ Therapy Progress Note ---
Therapy Progress Note Pt currently intubated. OT to monitor pt's status then will initiate treatment when pt is medically stable and able to actively participate in skilled therapy. ESTEPHANIE GARCIA Jun 10, 2022 06:48
[2022-06-10 07:06] VITALS: BP 125/65
--- NOTE | 2022-06-10 07:33 | Physical Therapy Progress Note ---
Therapy Progress Note Patient currently sedated and intubated. PT will continue to monitor patient status and initiate treatment when patient is medically stable and able to actively participate with skilled therapy KARISSA VILLARREAL PT Jun 10, 2022 07:33
--- NOTE | 2022-06-10 07:39 | Diagnostic Imaging Report ---
INDICATION: Congestive heart failure and pneumonia. Comparison is made with prior exam of 06/09/2022 FINDINGS: ET and NG tubes are in satisfactory position. There is cardiomegaly and some venous congestion. There is some right basilar atelectasis and/or pneumonitis. There is no pleural effusion or pneumothorax. IMPRESSION: Patchy right basilar atelectasis and/or pneumonitis. Cardiomegaly and some central pulmonary venous congestion. Dictated by: Dictated on workstation # [id number]
--- NOTE | 2022-06-10 08:12 | Tele-ICU Progress Note ---
Subjective Date Seen by a Provider: Jun 10, 2022 Time Seen by a Provider: 08:09 Subjective/Events-last exam (Tele-ICU Physician , Progress note) Available chart/ vitals / labs / Images reviewed H&P is from ER notes Patient's information available about PMH, allergy reviewed in EMR. ROS as per chart and RN report Video assessment done using teleICU camera, rest of exam as per RN Discussed with RN. Patient today remained on mechanical ventilation. He has been diuresing well with the increase in the Lasix. CXR reviewed and ET tube migrated upwards again. and called RN and advised to advance by 3 cm and repeat cxr. His blood pressure is borderline. His peripheral edema is improving per RN. Video visit made. Urology consult noted. Review of Systems ROS PER RN Sepsis Event Evaluation Height, Weight, BMI Height: '" Weight: lbs. oz. kg; 43.28 BMI Method: Exam Exam Patient acknowledged, consented, and participated in this virtual visit which was conducted using real time audio/video Vital Signs Date Time Temp Pulse Resp B/P (MAP) Pulse Ox O2 Delivery O2 Flow Rate FiO2 06/10/22 07:53 36.6 06/10/22 07:06 82 15 94 60 06/10/22 06:47 87 116/55 06/10/22 06:07 87 116/55 06/10/22 06:00 81 15 94 Mechanical Ventilator 60.00 06/10/22 05:17 60 06/10/22 05:00 88 15 95 Mechanical Ventilator 60.00 06/10/22 04:00 94 15 94 Mechanical Ventilator 60.00 06/10/22 04:00 94 Mechanical Ventilator 60 06/10/22 03:00 93 12 96 Mechanical Ventilator 60.00 06/10/22 02:35 86 15 95 60 06/10/22 02:09 85 112/72 06/10/22 02:07 86 116/56 06/10/22 02:00 87 15 95 Mechanical Ventilator 60.00 06/10/22 01:51 60 06/10/22 01:17 86 108/62 06/10/22 01:15 85 06/10/22 01:00 87 15 94 Mechanical Ventilator 60.00 06/10/22 00:00 84 15 95 Mechanical Ventilator 60.00 06/09/22 23:59 93 Mechanical Ventilator 60 06/09/22 23:00 87 15 94 Mechanical Ventilator 60.00 06/09/22 22:09 82 102/56 06/09/22 22:00 82 15 93 Mechanical Ventilator 60.00 06/09/22 22:00 60 06/09/22 21:17 82 102/56 06/09/22 21:16 81 15 94 60 06/09/22 21:00 82 15 94 Mechanical Ventilator 60.00 06/09/22 20:00 84 15 94 Mechanical Ventilator 60.00 06/09/22 20:00 94 Mechanical Ventilator 60 06/09/22 19:00 84 15 93 Mechanical Ventilator 60.00 06/09/22 19:00 36.8 Mechanical Ventilator 60.00 06/09/22 19:00 84 06/09/22 18:17 83 15 94 60 06/09/22 18:01 36.7 82 15 120/70 (87) 94 Mechanical Ventilator 60.00 06/09/22 18:00 87 15 94 Mechanical Ventilator 60.00 06/09/22 17:54 60 06/09/22 16:55 106/50 06/09/22 16:00 84 15 94 Mechanical Ventilator 60.00 06/09/22 15:30 94 Mechanical Ventilator 60 06/09/22 15:00 82 15 93 Mechanical Ventilator 60.00 06/09/22 14:47 82 15 94 60 06/09/22 14:09 106/52 06/09/22 14:00 80 15 95 Mechanical Ventilator 60.00 06/09/22 13:54 60 06/09/22 13:24 82 06/09/22 13:00 81 15 95 Mechanical Ventilator 60.00 06/09/22 12:00 84 15 95 Mechanical Ventilator 60.00 06/09/22 11:53 36.4 06/09/22 11:23 94 Mechanical Ventilator 65 06/09/22 11:00 86 15 95 Mechanical Ventilator 60.00 06/09/22 10:16 84 15 95 60 06/09/22 10:00 86 15 95 Mechanical Ventilator 60.00 06/09/22 09:32 65 06/09/22 09:04 109/59 06/09/22 09:00 84 15 94 Mechanical Ventilator 60.00 I & O 06/10/22 07:00 Intake Total 550 ml Output Total 3450 ml Balance -2900 ml Height & Weight Height: '" Weight: lbs. oz. kg; 43.28 BMI Method: General Appearance: No Apparent Distress, WD/WN, Chronically ill, Obese HEENT: Pharynx Normal, Moist Mucous Membranes Neck: Full Range of Motion, Normal Inspection, Non Tender Respiratory: Crackles Cardiovascular: Tachycardia Capillary Refill: Less Than 3 Seconds Gastrointestinal: normal bowel sounds, non tender Extremity: Normal Range of Motion, Non Tender, No Calf Tenderness, Pedal Edema, Swelling (generalized lower extremity swelling) Neurologic/Psychiatric: Alert, Oriented x3, Other (sedatsed) Skin: Normal Color, Warm/Dry Results Lab Laboratory Tests 06/09/22 04:33 06/10/22 03:42 Assessment/Plan Assessment/Plan 1. Acute on chronic hypercarbic respiratory failure worsened today probably due to migration of ET tube upwards. 2. Heart failure with a preserved left ventricular ejection fraction slowly improving. 3. Respiratory acidosis got worse. 4. Tico. hydrocele Recommendations 1. Continue current mechanical ventilatory support. He is not ready for SBT. 2. Continue diuretic therapy per cardiology 3. no Diamox for today 4. Advance ET tube and repeat CXR later today 5. DVT and ulcer prophylaxis 6. Treatment with collaboration of consultants and primary care team. Critical Care: Ventilator Management Critical Care: Ventilator Management Time spent with patient (mins): 35 FITO VELEZ MD Jun 10, 2022 08:12
[2022-06-10] MEDS: PANTOPRAZOLE 40 MG (PROTONIX) VIAL IV SCH (09:05)
[2022-06-10] MEDS: LOSARTAN 50 MG (COZAAR) TAB PO SCH (09:05)
[2022-06-10] MEDS: fentaNYL DRIP PRE-MIX 250 ML IV SCH ×2 (09:08→23:28)
[2022-06-10] MEDS: LACRI-LUBE OPTHALMIC OINT 3.5 GM TUBE OU SCH ×2 (09:08→15:07)
--- NOTE | 2022-06-10 10:23 | Progress Note - Urology ---
Progress Note-Urology Progress Notes/Assess & Plan Progress/Assessment & Plan US NO HYDROCELE. JUST SCROTAL WALL EDEMA WE WILL SEE PRN Final Diagnosis SCROTAL WALL EDEMA PATRICIO ROMEO MD Jun 10, 2022 10:23
[2022-06-10] MEDS: acetaZOLAMIDE INJ 500 MG/5 ML (DIAMOX) VIAL IV SCH ×3 (10:56→23:25)
[2022-06-10 10:57] LABS: ALBUMIN 3.4 GM/DL (3.2-4.5); BILIRUBIN,DIRECT 0.4 MG/DL (0.0-0.3); BILIRUBIN,TOTAL 1.4 MG/DL (0.1-1.0)
[2022-06-10 11:06] VITALS: BP 125/65
--- NOTE | 2022-06-10 11:21 | Diagnostic Imaging Report ---
Indication: Respiratory distress. Comparison with 06/10/2022 at 4:59 a.m.. FINDINGS: ET tube is in good position overlying the tracheal shadow. Detail quite limited due to morbid obesity causing poor penetration with portable machine. There continues to be cardiomegaly. Right basilar atelectasis again noted. There may well be some infiltrate left lung base in retrocardiac region as well. Pulmonary vasculature remains prominent. IMPRESSION: No significant overall change in appearance has occurred when compared with previous exam. Dictated by: Dictated on workstation # [id number]
--- NOTE | 2022-06-10 12:11 | Progress Note - Hospitalist ---
GUILHERME JOHNSON 06/10/22 1211: Subjective HPI/CC On Admission Date Seen by Provider: Jun 10, 2022 Time Seen by Provider: 12:07 CC: Acute respiratory failure HPI: This is a 46 yr old male who presented to the ER with SOB. He was found to have CHF and he failed BiPAP. He required intubation. His vent settings are 500/22/10 at 100%. Sister is at the bedside. Considering his CO2 is severely elevated at 101, his pH is 7.23 he has a guarded prognosis at this point. Chest x-ray showed opacities, will check procalcitonin and labs this morning. Subjective/Events-last exam Patient remains intubated. He appears less edematous on exam. Continues to drain fluids off. CXR today shows patchy right basilar atelectasis and pneumonitis. CXR also shows cardiomegaly and central pulmonary venous congestion. Vitals and all other labs reviewed. Urology consult - patient has scrotal wall edema not a hydrocele. AB.35/73/63 Vent: 500/15/10/60 Objective Exam Vital Signs Vital Signs Date Time Temp Pulse Resp B/P (MAP) Pulse Ox O2 Delivery O2 Flow Rate FiO2 06/10/22 11:51 91 111/72 06/10/22 11:06 15 94 60 06/10/22 11:00 Mechanical Ventilator 60.00 06/10/22 07:53 36.6 Capillary Refill : Less Than 3 Seconds General Appearance: Obese Respiratory: Crackles (mild over the lower lung bases), Respiratory Distress Cardiovascular: No Murmur, Tachycardia Extremity: Pedal Edema, Swelling Skin: Normal Color, Warm/Dry Results/Procedures Lab Laboratory Tests 06/10/22 03:42 Patient resulted labs reviewed. Assessment/Plan Assessment and Plan Assess & Plan/Chief Complaint Assessment: Acute Hypercapnic Respiratory Failure Acute Flash Pulmonary Edema with Anasarca Unresponsive Episode due to narcotics HTN with recent increase in Losartan dose Elevated Liver Enzymes Type 2 NSTEMI Hx of sleep apnea Obesity Noncompliance with medical management of prior conditions Plan: Maintain Ventilator Continue tx with diuretics (furosemide) Continue home meds Monitor labs Liver Panel done Monitor BP Critical Care: Ventilator Management ANISA ZHU DO 06/11/22 0516: Subjective Subjective/Events-last exam Patient still intubated May require trach and PEG Supportive care will continue Objective Exam General Appearance: Chronically ill, Obese, Other (Sedated and ventilated) Respiratory: Crackles (mild over the lower lung bases) Supervisory-Addendum Brief Verification & Attestation Participated in pt care: history, MDM, physical Personally performed: exam, history, MDM, supervision of care Care discussed with: Medical Student Procedures: n/a Results interpretation: Verified all documentation Verification and Attestation of Medical Student E/M Service A medical student performed and documented this service in my presence. I reviewed and verified all information documented by the medical student and made modifications to such information, when appropriate. I personally performed the physical exam and medical decision making. Anisa Zhu, Jun 11, 2022,05:16 GUILHERME JOHNSON Jun 10, 2022 12:11 ANISA ZHU DO Jun 11, 2022 05:16
--- NOTE | 2022-06-10 13:16 | Progress Note - Cardiology ---
Cardiology SOAP Progress Note Subjective: On [facility] vent Non-communicative Objective: I&O/Vital Signs 06/10/22 06/10/22 06/10/22 06/10/22 01:15 01:17 01:51 02:00 Pulse 85 86 87 Resp 15 B/P (MAP) 108/62 Pulse Ox 95 O2 Delivery Mechanical Ventilator O2 Flow Rate 60.00 FiO2 60 06/10/22 06/10/22 06/10/22 06/10/22 02:07 02:09 02:35 03:00 Pulse 86 85 86 93 Resp 15 12 B/P (MAP) 116/56 112/72 Pulse Ox 95 96 O2 Delivery Mechanical Ventilator O2 Flow Rate 60.00 FiO2 60 06/10/22 06/10/22 06/10/22 06/10/22 04:00 04:00 05:00 05:17 Pulse 94 88 Resp 15 15 B/P (MAP) Pulse Ox 94 94 95 O2 Delivery Mechanical Ventilator Mechanical Ventilator Mechanical Ventilator O2 Flow Rate 60.00 60.00 FiO2 60 60 06/10/22 06/10/22 06/10/22 06/10/22 06:00 06:07 06:47 07:00 Pulse 81 87 87 82 Resp 15 B/P (MAP) 116/55 116/55 Pulse Ox 94 O2 Delivery Mechanical Ventilator O2 Flow Rate 60.00 06/10/22 06/10/22 06/10/22 06/10/22 07:00 07:06 07:53 08:00 Temp 36.6 Pulse 83 82 81 Resp 15 15 15 B/P (MAP) Pulse Ox 94 94 93 O2 Delivery Mechanical Ventilator Mechanical Ventilator O2 Flow Rate 60.00 60.00 FiO2 60 06/10/22 06/10/22 06/10/22 06/10/22 09:00 09:08 10:00 10:47 Pulse 85 85 96 91 Resp 15 15 B/P (MAP) 119/56 111/72 Pulse Ox 93 93 O2 Delivery Mechanical Ventilator Mechanical Ventilator O2 Flow Rate 60.00 60.00 06/10/22 06/10/22 06/10/22 06/10/22 11:00 11:06 11:51 12:14 Temp 36.8 Pulse 98 82 91 Resp 24 15 B/P (MAP) 111/72 Pulse Ox 88 94 O2 Delivery Mechanical Ventilator O2 Flow Rate 60.00 FiO2 60 06/10/22 00:00 Intake Total 350 ml Output Total 2225 ml Balance -1875 ml Constitutional: other (intubated and sedated) Respiratory: other (intubated; good air entry) Cardiovascular: regular rate-rhythm; No JVD; S1 and S2 Gastrointestional: soft, audible bowel sounds Genital/Rectal: other (scrotal and penile swelling) Extremities: other (mod bilat LE swelling) Neurologic/Psychiatric: other (intubated and sedated - unable to cooperate with exam) Skin: other (red rash to upper thighs and lower abdomen) Results/Procedures: Labs Laboratory Tests 06/09/22 13:46: Blood Gas Puncture Site RIGHT RADIAL, Blood Gas Patient Temperature 36.7, Arterial Blood pH 7.41, Arterial Blood Partial Pressure CO2 64H, Arterial Blood Partial Pressure O2 67L, Arterial Blood HCO3 40H, Arterial Blood Total CO2 42.0*H, Arterial Blood Oxygen Saturation 95, Arterial Blood Base Excess 14.6H, Hasmukh Test YES-POS, Blood Gas Ventilator Setting YES, Blood Gas Inspired Oxygen NA 06/09/22 18:43: Glucometer 111H 06/09/22 23:44: Glucometer 107 06/10/22 03:42: Blood Gas Puncture Site UNKNOWN, Blood Gas Patient Temperature 36.8, Arterial Blood pH 7.35L, Arterial Blood Partial Pressure CO2 73*H, Arterial Blood Partial Pressure O2 63L, Arterial Blood HCO3 40H, Arterial Blood Total CO2 42.0*H, Arterial Blood Oxygen Saturation 92L, Arterial Blood Base Excess 13.6H, Hasmukh Test POS, Blood Gas Ventilator Setting YES, Blood Gas Inspired Oxygen 90%, White Blood Count 9.9, Red Blood Count 6.04H, Hemoglobin 14.5, Hematocrit 49, Mean Cor puscular Volume 82, Mean Corpuscular Hemoglobin 24L, Mean Corpuscular Hemoglobin Concent 29L, Red Cell Distribution Width 17.2H, Platelet Count 272, Mean Platelet Volume 9.9, Immature Granulocyte % (Auto) 0, Neutrophils (%) (Auto) 75, Lymphocytes (%) (Auto) 14, Monocytes (%) (Auto) 8, Eosinophils (%) (Auto) 2, Basophils (%) (Auto) 1, Neutrophils # (Auto) 7.4, Lymphocytes # (Auto) 1.4, Monocytes # (Auto) 0.8, Eosinophils # (Auto) 0.2, Basophils # (Auto) 0.1, Immature Granulocyte # (Auto) 0.0, Sodium Level 146H, Potassium Level 3.7, Chloride Level 98, Carbon Dioxide Level 31, Anion Gap 17H, Blood Urea Nitrogen 19H, Creatinine 1.06, Estimat Glomerular Filtration Rate 88, BUN/Creatinine Ratio 18, Glucose Level 101, Calcium Level 9.0, Phosphorus Level 4.2, Magnesium Level 2.4, Total Bilirubin 1.4H, Direct Bilirubin 0.4H, Indirect Bilirubin 1.0, Aspartate Amino Transf (AST/SGOT) 56H, Alanine Aminotransferase (ALT/SGPT) 99H, Alkaline Phosphatase 79, Total Protein 7.0, Albumin 3.4 06/10/22 11:35: Glucometer 91 Microbiology 06/07/22 Blood Culture - Preliminary, Resulted No growth 06/07/22 Gram Stain - Final, Complete 06/07/22 Sputum Culture - Final, Complete Usual upper respiratory tonny Laboratory Tests 06/09/22 04:33 06/10/22 03:42 A/P: Assessment: Respiratory failure requiring intubation - likely multi-factorial d/t acute diastolic CHF and obesity-hypoventilation syndrome and probable pneumonia Acute diastolic CHF - Echocardiogram of 06-07-22 showed LVEF 55-60% Elevated liver enzymes - possibly hepatobiliary congestion d/t CHF - improving with aggressive diuresis MPI 06-02-[address] Phillip: Good exercise tolerance for a total of 5 minutes on [place] protocol, 7 METs, achieving 86 percent of maximum expected heart rate. Minimal nondiagnostic EKG changes with exercise returned to baseline during re covery. No arrhythmia was noted. Hypertensive response to exercise with peak blood pressure 204/112 return to baseline during recovery HTN - controlled Obesity - BMI approx 47 Plan: * Continue diuretics * Monitor labs * Resp failure and possible pneumonia and scrotal swelling to be managed by Hosp and ICU TIFFANIE Machado MD FACP [facility] Jun 10, 2022 13:16
[2022-06-10] MEDS ORDERED: NS (IVPB) 250 ML IV ONE (14:45)
[2022-06-10 14:53] VITALS: BP 120/70
[2022-06-10 17:37] LABS: ABG BASE EXCESS 10.4 MMOL/L (-2.5-2.5); ABG OXYGEN SATURATION 91 % (94-100); ABG PCO2 58 MMHG (35-45); ABG PO2 58 MMHG (79-93); ABG TCO2 37.3 MMOL/L (21.0-31.0)
[2022-06-10 17:40] LABS: PATIENT TEMP 37.1; VENTILATOR YES
[2022-06-10 17:41] LABS: INSPIRED O2 50%
[2022-06-10] MEDS: NOREPINEPHRINE 8 MG/250 ML 250 ML IV SCH ×2 (17:42→18:55)
[2022-06-10 18:28] VITALS: BP 82/50
[2022-06-10 21:55] VITALS: BP 100/56
[2022-06-11 02:30] VITALS: BP 90/59
[2022-06-11] MEDS: aCETylcysteine 20% (MUCOMYST) 4 ML SOLN VIAL INH SCH ×4 (02:30→23:03)
[2022-06-11] MEDS: RT-ALBUTEROL/IPRATROPIUM 3 ML (DUONEB) VIAL INH SCH ×6 (02:30→23:03)
[2022-06-11 03:57] LABS: ABG BASE EXCESS 9.4 MMOL/L (-2.5-2.5); ABG OXYGEN SATURATION 92 % (94-100); ABG PCO2 59 MMHG (35-45); ABG PH 7.39 (7.37-7.43); ABG PO2 62 MMHG (79-93); ABG TCO2 36.3 MMOL/L (21.0-31.0); BASOPHILS % (AUTO) 0 % (0-10); EOSINOPHILS # (AUTO) 0.1 10^3/uL (0.0-0.3); EOSINOPHILS % (AUTO) 1 % (0-10); HEMATOCRIT 46 % (40-54); HEMOGLOBIN 13.9 g/dL (13.3-17.7); LYMPHOCYTES # (AUTO) 0.7 10^3/uL (1.0-4.0); LYMPHOCYTES % (AUTO) 7 % (12-44); MEAN CORPUSCULAR HEMOGLOBIN 24 pg (25-34); MEAN CORPUSCULAR HGB CONC 30 g/dL (32-36); MEAN CORPUSCULAR VOLUME 80 fL (80-99); MEAN PLATELET VOLUME 9.6 fL (9.0-12.2); MONOCYTES # (AUTO) 0.8 10^3/uL (0.0-1.0); MONOCYTES % (AUTO) 8 % (0-12); NEUTROPHILS # (AUTO) 8.4 10^3/uL (1.8-7.8); NEUTROPHILS % (AUTO) 83 % (42-75); PLATELET COUNT 249 10^3/uL (130-400); WHITE BLOOD COUNT 10.1 10^3/uL (4.3-11.0)
[2022-06-11 03:59] LABS: ALLENS TEST ART LINE
[2022-06-11 04:00] LABS: INSPIRED O2 50%; PATIENT TEMP 37.4; VENTILATOR YES
[2022-06-11 04:16] LABS: ALBUMIN 3.2 GM/DL (3.2-4.5); BILIRUBIN,TOTAL 1.6 MG/DL (0.1-1.0); CALCIUM 8.8 MG/DL (8.5-10.1); MAGNESIUM 2.4 MG/DL (1.6-2.4); PHOSPHORUS 2.7 MG/DL (2.3-4.7); TOTAL PROTEIN 6.7 GM/DL (6.4-8.2)
[2022-06-11] MEDS: POTASSIUM CL 10MEQ/50ML IVPB 50 ML IV SCH ×6 (04:31→15:18)
[2022-06-11] MEDS: MAGNESIUM 1 GM/100 ML IVPB 100 ML IV SCH (04:31)
[2022-06-11] MEDS: KCL 20 MEQ TAB (K-DUR) PO SCH (04:31)
[2022-06-11] MEDS: CATHETER FLUSH 10 ML SYR IV SCH ×3 (05:36→22:47)
[2022-06-11] MEDS: LACRI-LUBE OPTHALMIC OINT 3.5 GM TUBE OU SCH ×2 (06:03→22:42)
[2022-06-11] MEDS: FUROSEMIDE 40 MG/4 ML INJ (LASIX) IVP SCH ×2 (06:15→15:19)
--- NOTE | 2022-06-11 06:47 | Occ Therapy Progress Note ---
Therapy Progress Note Pt currently intubated. OT to monitor pt's status then will initiate treatment when pt is medically stable and able to actively participate in skilled therapy. ESTEPHANIE GARCIA Jun 11, 2022 06:47
[2022-06-11] MEDS: PROPOFOL DRIP (ICU) 100 ML IV SCH (07:12)
--- NOTE | 2022-06-11 07:12 | Physical Therapy Progress Note ---
Therapy Progress Note Patient continues to sedated and intubated with diminished medical status. PT to remove patient from services at this time. PT will require new orders when patient is medically stable and able to actively participate with skilled therapy. KARISSA VILLARREAL PT Jun 11, 2022 07:12
[2022-06-11 07:37] VITALS: BP 135/66
[2022-06-11] MEDS: FUROSEMIDE 40 MG (LASIX) TAB PO SCH (07:40)
[2022-06-11] MEDS: LOSARTAN 50 MG (COZAAR) TAB PO SCH (09:00)
[2022-06-11] MEDS: PANTOPRAZOLE 40 MG (PROTONIX) VIAL IV SCH (09:00)
[2022-06-11 10:30] VITALS: BP 99/57
--- NOTE | 2022-06-11 11:56 | Progress Note - Cardiology ---
Cardiology SOAP Progress Note Subjective: On [facility] vent Non-communicative Objective: I&O/Vital Signs 06/11/22 06/11/22 06/11/22 06/11/22 00:00 00:17 01:00 01:51 Temp 37.3 Pulse 100 105 87 Resp 18 18 B/P (MAP) Pulse Ox 94 94 O2 Delivery Mechanical Ventilator Mechanical Ventilator O2 Flow Rate 50.00 50.00 FiO2 50 06/11/22 06/11/22 06/11/22 06/11/22 02:00 02:13 02:30 02:59 Pulse 90 115 92 92 Resp 18 18 21 B/P (MAP) 120/96 Pulse Ox 93 94 93 O2 Delivery Mechanical Ventilator Mechanical Ventilator O2 Flow Rate 50.00 50.00 FiO2 50 06/11/22 06/11/22 06/11/22 06/11/22 03:28 03:50 03:53 04:00 Temp 37.4 Pulse 89 91 96 Resp 18 19 B/P (MAP) 96/53 Pulse Ox 94 94 94 O2 Delivery Mechanical Ventilator Mechanical Ventilator Mechanical Ventilator O2 Flow Rate 50.00 50.00 FiO2 50 06/11/22 06/11/22 06/11/22 06/11/22 05:00 05:00 05:30 06:00 Pulse 90 87 98 Resp 23 B/P (MAP) Pulse Ox 95 94 94 O2 Delivery Mechanical Ventilator Mechanical Ventilator O2 Flow Rate 50.00 50.00 FiO2 50 06/11/22 06/11/22 06/11/22 06/11/22 07:00 07:00 07:00 07:12 Temp 37.1 Pulse 91 89 90 Resp 18 B/P (MAP) 129/63 Pulse Ox 94 O2 Delivery Mechanical Ventilator O2 Flow Rate 50.00 06/11/22 06/11/22 06/11/22 06/11/22 07:37 08:00 08:00 09:00 Pulse 96 102 86 Resp 22 18 B/P (MAP) Pulse Ox 94 94 94 95 O2 Delivery Mechanical Ventilator Mechanical Ventilator Mechanical Ventilator O2 Flow Rate 50.00 50.00 FiO2 50 50 06/11/22 06/11/22 06/11/22 06/11/22 09:54 10:00 10:30 11:00 Pulse 82 80 90 Resp 18 18 13 B/P (MAP) Pulse Ox 95 95 95 O2 Delivery Mechanical Ventilator Mechanical Ventilator O2 Flow Rate 50.00 50.00 FiO2 50 50 06/11/22 11:50 Temp 37.2 Pulse 85 Resp 14 B/P (MAP) 120/70 (87) 120/70 (87) Pulse Ox 95 O2 Delivery Mechanical Ventilator O2 Flow Rate 50.00 06/11/22 00:00 Intake Total 430 ml Output Total 1050 ml Balance -620 ml Constitutional: other (intubated and sedated) Respiratory: other (intubated; good air entry) Cardiovascular: regular rate-rhythm; No JVD; S1 and S2 Gastrointestional: soft, audible bowel sounds Genital/Rectal: other (scrotal and penile swelling) Extremities: other (mod bilat LE swelling) Neurologic/Psychiatric: other (intubated and sedated - unable to cooperate with exam) Skin: other (red rash to upper thighs and lower abdomen) Results/Procedures: Labs Laboratory Tests 06/10/22 17:16: Blood Gas Puncture Site RIGHT RAD, Blood Gas Patient Temperature 37.1, Arterial Blood pH 7.40, Arterial Blood Partial Pressure CO2 58H, Arterial Blood Partial Pressure O2 58L, Arterial Blood HCO3 36H, Arterial Blood Total CO2 37.3H, Arterial Blood Oxygen Saturation 91L, Arterial Blood Base Excess 10.4H, Hasmukh Test NA, Blood Gas Ventilator Setting YES, Blood Gas Inspired Oxygen 50% 06/10/22 17:36: Glucometer 95 06/10/22 23:37: Glucometer 117H 06/11/22 03:44: Blood Gas Puncture Site RIGHT ARTLINE, Blood Gas Patient Temperature 37.4, Arterial Blood pH 7.39, Arterial Blood Partial Pressure CO2 59H, Arterial Blood Partial Pressure O2 62L, Arterial Blood HCO3 35H, Arterial Blood Total CO2 36.3H , Arterial Blood Oxygen Saturation 92L, Arterial Blood Base Excess 9.4H, Hasmukh Test ART LINE, Blood Gas Ventilator Setting YES, Blood Gas Inspired Oxygen 50%, White Blood Count 10.1, Red Blood Count 5.77H, Hemoglobin 13.9, Hematocrit 46, Mean Corpuscular Volume 80, Mean Corpuscular Hemoglobin 24L, Mean Corpuscular H emoglobin Concent 30L, Red Cell Distribution Width 16.6H, Platelet Count 249, Mean Platelet Volume 9.6, Immature Granulocyte % (Auto) 0, Neutrophils (%) (Auto) 83H, Lymphocytes (%) (Auto) 7L, Monocytes (%) (Auto) 8, Eosinophils (%) (Auto) 1, Basophils (%) (Auto) 0, Neutrophils # (Auto) 8.4H, Lymphocytes # (Auto) 0.7L, Monocytes # (Auto) 0.8, Eosinophils # (Auto) 0.1, Basophils # (Auto) 0.0, Immature Granulocyte # (Auto) 0.0, Sodium Level 143, Potassium Level 3.0L, Chloride Level 99, Carbon Dioxide Level 29, Anion Gap 15H, Blood Urea Nitrogen 24H, Creatinine 1.00, Estimat Glomerular Filtration Rate 94, BUN/Creatinine Ratio 24, Glucose Level 114H, Calcium Level 8.8, Corrected Calcium 9.4, Phosphorus Level 2.7, Magnesium Level 2.4, Total Bilirubin 1.6H, Aspartate Amino Transf (AST/SGOT) 72H, Alanine Aminotransferase (ALT/SGPT) 99H, Alkaline Phosphatase 84, Total Protein 6.7, Albumin 3.2 Microbiology 06/07/22 Blood Culture - Preliminary, Resulted No growth 06/07/22 Gram Stain - Final, Complete 06/07/22 Sputum Culture - Final, Complete Usual upper respiratory tonny A/P: Assessment: Respiratory failure requiring intubation - likely multi-factorial d/t acute diastolic CHF and obesity-hypoventilation syndrome and probable pneumonia Acute diastolic CHF - MPI 06-02-[address] Phillip: Good exercise tolerance for a total of 5 minutes on [place] protocol, 7 METs, achieving 86 percent of maximum expected heart rate. M inimal nondiagnostic EKG changes with exercise returned to baseline during recovery. No arrhythmia was noted. Hypertensive response to exercise with peak blood pressure 204/112 return to baseline during recovery - Echocardiogram of 06-07-22 showed LVEF 55-60% Elevated liver enzymes - possibly hepatobiliary congestion d/t CHF - improving with aggressive diuresis HTN - controlled Obesity - BMI approx 47 Plan: * Continue diuretics * Monitor labs * Resp failure and possible pneumonia managed by Hosp and ICU TIFFANIE Machado MD FACP [facility] Jun 11, 2022 11:56
--- NOTE | 2022-06-11 12:13 | Progress Note - Hospitalist ---
GUILHERME JOHNSON 06/11/22 1213: Subjective HPI/CC On Admission Date Seen by Provider: Jun 11, 2022 Time Seen by Provider: 12:07 CC: Acute respiratory failure HPI: This is a 46 yr old male who presented to the ER with SOB. He was found to have CHF and he failed BiPAP. He required intubation. His vent settings are 500/22/10 at 100%. Sister is at the bedside. Considering his CO2 is severely elevated at 101, his pH is 7.23 he has a guarded prognosis at this point. Chest x-ray showed opacities, will check procalcitonin and labs this morning. Subjective/Events-last exam Patient is awake today and off sedation for the time being. He denies any pain at the moment. No calf tenderness. Nurse reports 23L have been drained since diuresis began. Labs reviewed. Potassium is 3 today. ABG 7.39/59/62 Vent 500/18/10/50 Objective Exam Vital Signs Vital Signs Date Time Temp Pulse Resp B/P (MAP) Pulse Ox O2 Delivery O2 Flow Rate FiO2 06/11/22 11:50 37.2 85 14 120/70 (87) 95 Mechanical Ventilator 50.00 120/70 (87) 06/11/22 10:30 50 Capillary Refill : Less Than 3 Seconds General Appearance: Chronically ill, Obese Respiratory: Chest Non Tender, Accessory Muscle Use, Decreased Breath Sounds, Respiratory Distress Cardiovascular: Tachycardia Extremity: No Calf Tenderness, Pedal Edema, Swelling Results/Procedures Lab Laboratory Tests 06/11/22 03:44 Patient resulted labs reviewed. Assessment/Plan Assessment and Plan Assess & Plan/Chief Complaint Assessment: Acute Hypercapnic Respiratory Failure Acute Flash Pulmonary Edema with Anasarca Unresponsive Episode due to narcotics HTN with recent increase in Losartan dose Elevated Liver Enzymes Type 2 NSTEMI Hx of sleep apnea Obesity Noncompliance with medical management of prior conditions Plan: Maintain Ventilator Continue tx with diuretics (furosemide) Continue home meds Potassium Replacement Monitor labs Monitor BP Critical Care: Ventilator Management ANISA ZHU DO 06/12/22 0745: Subjective Subjective/Events-last exam Still on vent Sister at bedside Slow progress Objective Exam General Appearance: No Apparent Distress, WD/WN, Chronically ill Respiratory: Normal Breath Sounds, No Accessory Muscle Use, Decreased Breath Sounds Assessment/Plan Assessment and Plan Assess & Plan/Chief Complaint Vent management Supervisory-Addendum Brief Verification & Attestation Participated in pt care: history, MDM, physical Personally performed: exam, history, MDM, supervision of care Care discussed with: Medical Student Procedures: n/a Results interpretation: Verified all documentation Verification and Attestation of Medical Student E/M Service A medical student performed and documented this service in my presence. I reviewed and verified all information documented by the medical student and made modifications to such information, when appropriate. I personally performed the physical exam and medical decision making. Anisa Zhu, Jun 12, 2022,07:44 GUILHERME JOHNSON Jun 11, 2022 12:13 ANISA ZHU DO Jun 12, 2022 07:45
[2022-06-11] MEDS: NOREPINEPHRINE 8 MG/250 ML 250 ML IV SCH ×2 (12:31→22:51)
[2022-06-11 15:33] VITALS: BP 118/67
[2022-06-11] MEDS: fentaNYL DRIP PRE-MIX 250 ML IV SCH (15:37)
[2022-06-11 19:05] VITALS: BP 102/76
[2022-06-12] VITALS (8 sets, daily range): BP systolic 85–154; BP diastolic 55–88
[2022-06-12] MEDS: PROPOFOL DRIP (ICU) 100 ML IV SCH ×4 (02:12→20:03)
[2022-06-12] MEDS: aCETylcysteine 20% (MUCOMYST) 4 ML SOLN VIAL INH SCH ×4 (03:05→21:53)
[2022-06-12] MEDS: RT-ALBUTEROL/IPRATROPIUM 3 ML (DUONEB) VIAL INH SCH ×6 (03:05→21:53)
[2022-06-12 05:04] LABS: ALBUMIN 3.3 GM/DL (3.2-4.5); CALCIUM 9.2 MG/DL (8.5-10.1); CREATININE SERUM 1.07 MG/DL (0.60-1.30); POTASSIUM 2.9 MMOL/L (3.6-5.0)
[2022-06-12] MEDS: POTASSIUM CL 10MEQ/50ML IVPB 50 ML IV SCH ×6 (05:52→11:12)
[2022-06-12] MEDS: MAGNESIUM 1 GM/100 ML IVPB 100 ML IV SCH (05:52)
[2022-06-12] MEDS: KCL 20 MEQ TAB (K-DUR) PO SCH (05:53)
--- NOTE | 2022-06-12 06:21 | Diagnostic Imaging Report ---
INDICATION: Tube placement. Comparison is made with prior examination of 06/10/2022. FINDINGS: There is cardiomegaly. There is some venous congestion. There is no pleural effusion or pneumothorax. The mediastinum is unremarkable. ET and NG tubes are in place. IMPRESSION: Cardiomegaly and some central pulmonary venous congestion. Dictated by: Dictated on workstation # [id number]
[2022-06-12] MEDS: FUROSEMIDE 40 MG/4 ML INJ (LASIX) IVP SCH ×2 (07:06→17:39)
[2022-06-12] MEDS: CATHETER FLUSH 10 ML SYR IV SCH ×3 (07:08→22:44)
--- NOTE | 2022-06-12 07:56 | Progress Note - Hospitalist ---
Subjective HPI/CC On Admission Date Seen by Provider: Jun 12, 2022 Time Seen by Provider: 11:00 CC: Acute respiratory failure HPI: This is a 46 yr old male who presented to the ER with SOB. He was found to have CHF and he failed BiPAP. He required intubation. His vent settings are 500/22/10 at 100%. Sister is at the bedside. Considering his CO2 is severely elevated at 101, his pH is 7.23 he has a guarded prognosis at this point. Chest x-ray showed opacities, will check procalcitonin and labs this morning. Subjective/Events-last exam Patient remained stable Still ventilated Still diuresing Tried weaning trial and he is doing a lot better Sister and mother at the bedside and I answered all questions Review of Systems General: Fatigue, Malaise Objective Exam Vital Signs Vital Signs Date Time Temp Pulse Resp B/P (MAP) Pulse Ox O2 Delivery O2 Flow Rate FiO2 06/13/22 06:00 91 18 104/63 (77) 93 Mechanical Ventilator 75.00 06/13/22 04:00 75 06/13/22 04:00 36.4 Capillary Refill : Less Than 3 Seconds General Appearance: No Apparent Distress, WD/WN, Chronically ill, Other (Sedated and ventilated) Respiratory: Decreased Breath Sounds Cardiovascular: Regular Rate, Rhythm Results/Procedures Lab Laboratory Tests 06/13/22 03:25 Patient resulted labs reviewed. Assessment/Plan Assessment and Plan Assess & Plan/Chief Complaint Assessment: Acute respiratory failure Ventilator dependent Flash pulmonary edema Severe anasarca Severe obesity Plan: Diuresis Vent management Critical Care Ventilator Management AUBREE ZHU DO Jun 12, 2022 07:56
[2022-06-12] MEDS: LOSARTAN 50 MG (COZAAR) TAB PO SCH (08:16)
[2022-06-12] MEDS: NOREPINEPHRINE 8 MG/250 ML 250 ML IV SCH ×2 (08:16→17:39)
[2022-06-12] MEDS: PANTOPRAZOLE 40 MG (PROTONIX) VIAL IV SCH (08:16)
[2022-06-12] MEDS: LACRI-LUBE OPTHALMIC OINT 3.5 GM TUBE OU SCH ×2 (08:17→20:03)
[2022-06-12] MEDS: fentaNYL DRIP PRE-MIX 250 ML IV SCH (09:07)
--- NOTE | 2022-06-12 09:13 | Tele-ICU Progress Note ---
Subjective Date Seen by a Provider: Jun 12, 2022 Subjective/Events-last exam This virtual visit was conducted using real time audio/video. Thank you for asking us to see this patient for respiratory insufficiency due to CHF : failed BiPAP and intubated. Hypercapnia noted (?OHS). PE: Sedated on vent. VSS. O2 sat 92% on AC18, 500. 50%/+5 HEENT: No obvious masses, adenopathy or JVD. Chest: Coarse BS on auscultation. CV: RRR S1 S2 No murmur or added sounds. Abd: Non-tender. Bowel sounds Y. : Unremarkable. Salazar Y. HELPER TEACHER/psychiatric: Grossly intact. No obvious focal findings. Extremities: Tr-1+ edema. Capillary refill < 3 seconds. Skin: unremarkable. Results: Elevated Na 146, BUN 26. Decreased K 2.9. BG 7.39/59/62 on 50%/+5 . CXR: Cardiomegal, congestion.. Available chart/ vitals / labs / images reviewed. Video assessment done using teleICU camera, rest of exam as per RN. A/P: Respiratory insufficiency: Continue present management with vent, duonebs, mucomyst, propofol, fentanyl. Would not perform an SBT until FiO2 is 30% or lower. Monitor for increasing oxygenation needs. Critical Care: critically ill patient. Cont. lasix, PPI, cozaar, SQ heparin. Would replace K. Discussed with AUDREY Hunter. Asked RN to reach out to eICU if any questions or concerns later. Time spent with patient/coordination of care with other health professionals (mins): 25 Sepsis Event Evaluation Height, Weight, BMI Height: '" Weight: lbs. oz. kg; 43.15 BMI Method: Exam Exam Patient acknowledged, consented, and participated in this virtual visit which was conducted using real time audio/video Vital Signs Date Time Temp Pulse Resp B/P (MAP) Pulse Ox O2 Delivery O2 Flow Rate FiO2 06/12/22 08:17 36.6 06/12/22 08:00 96 21 90 Mechanical Ventilator 50.00 06/12/22 07:00 93 06/12/22 07:00 92 18 92 Mechanical Ventilator 50.00 06/12/22 06:35 101 23 97 50 06/12/22 06:00 84 18 93 Mechanical Ventilator 50.00 06/12/22 05:54 50 06/12/22 05:00 87 18 92 Mechanical Ventilator 50.00 06/12/22 05:00 90 18 95 06/12/22 04:00 95 Mechanical Ventilator 50 06/12/22 04:00 86 18 97 Mechanical Ventilator 50.00 06/12/22 03:00 93 18 97 Mechanical Ventilator 50.00 06/12/22 02:59 94 19 96 50 06/12/22 02:12 86 121/35 06/12/22 02:00 86 27 94 Mechanical Ventilator 50.00 06/12/22 01:54 50 06/12/22 01:00 81 06/12/22 01:00 80 18 94 Mechanical Ventilator 50.00 06/12/22 00:00 84 18 93 Mechanical Ventilator 50.00 06/11/22 23:59 95 Mechanical Ventilator 50 06/11/22 23:03 80 18 96 50 06/11/22 23:00 81 18 96 Mechanical Ventilator 50.00 06/11/22 22:50 36.5 06/11/22 22:00 80 18 94 Mechanical Ventilator 50.00 06/11/22 21:26 50 06/11/22 21:00 84 18 94 Mechanical Ventilator 50.00 06/11/22 20:12 36.6 06/11/22 20:00 83 18 94 Mechanical Ventilator 50.00 06/11/22 20:00 95 Mechanical Ventilator 50 06/11/22 19:05 81 18 96 50 06/11/22 19:00 83 06/11/22 19:00 83 20 93 Mechanical Ventilator 50.00 06/11/22 18:00 84 20 93 Mechanical Ventilator 50.00 06/11/22 17:54 50 06/11/22 17:00 96 10 92 Mechanical Ventilator 50.00 06/11/22 16:26 37.0 06/11/22 16:00 94 Mechanical Ventilator 50 06/11/22 16:00 82 18 94 Mechanical Ventilator 50.00 06/11/22 15:33 78 18 95 50 06/11/22 15:00 78 18 95 Mechanical Ventilator 50.00 06/11/22 14:00 82 18 95 Mechanical Ventilator 50.00 06/11/22 13:54 50 06/11/22 13:00 77 06/11/22 13:00 79 18 94 Mechanical Ventilator 50.00 06/11/22 12:00 94 Mechanical Ventilator 50 06/11/22 11:50 37.2 85 14 120/70 (87) 95 Mechanical Ventilator 50.00 120/70 (87) 06/11/22 11:00 90 13 95 Mechanical Ventilator 50.00 06/11/22 10:30 80 18 95 50 06/11/22 10:00 82 18 95 Mechanical Ventilator 50.00 06/11/22 09:54 50 I & O 06/12/22 07:00 Intake Total 1550 ml Output Total 2950 ml Balance -1400 ml Height & Weight Height: '" Weight: lbs. oz. kg; 43.15 BMI Method: General Appearance: No Apparent Distress, WD/WN, Chronically ill HEENT: Pharynx Normal, Moist Mucous Membranes Neck: Full Range of Motion, Normal Inspection, Non Tender Respiratory: Normal Breath Sounds, No Accessory Muscle Use, Decreased Breath Sounds Cardiovascular: Tachycardia Capillary Refill: Less Than 3 Seconds Gastrointestinal: normal bowel sounds, non tender Extremity: No Calf Tenderness, Pedal Edema, Swelling Neurologic/Psychiatric: Alert, Oriented x3, Other (sedatsed) Skin: Normal Color, Warm/Dry Results Lab Laboratory Tests 06/11/22 03:44 06/12/22 04:38 Assessment/Plan Assessment/Plan See free text. Critical Care: Ventilator Management HOLLIS GONZALEZ MD Jun 12, 2022 09:13
--- NOTE | 2022-06-12 11:17 | Cardiology Progress Note ---
Progress Note-Cardiology Events since last exam Date Seen by Provider: Jun 12, 2022 Time Seen by Provider: 11:13 Events since last exam We are following him due to heart failure. He remains intubated and sedated. He is not requiring any vasopressors. He has been doing some weaning trials but when I saw him, he was sedated. I spoke to his nurse and 2 family members at the bedside. I am not able to obtain any history from the patient due to the sedation. Certain portions of this document may have been dictated utilizing voice recognition technology. Inherent to this technology, typographical and gram matical errors may exist. As much as I am diligent to identify and correct these mistakes, some errors may remain in the document. Vitals Last set of Vitals Signs Vital Signs 06/12/22 06/12/22 06/12/22 06/12/22 08:17 10:54 10:57 11:00 Temp 36.6 Pulse 96 Resp 18 B/P (MAP) 99/60 Pulse Ox 91 O2 Delivery Mechanical Ventilator O2 Flow Rate 50.00 FiO2 50 Labs Labs Laboratory Tests 06/12/22 04:38 Exam Vital Signs Vital Signs Date Time Temp Pulse Resp B/P (MAP) Pulse Ox O2 Delivery O2 Flow Rate FiO2 06/12/22 11:00 96 18 91 Mechanical Ventilator 50.00 06/12/22 10:57 50 06/12/22 08:17 36.6 Physical Exam General: Intubated and sedated. Well nourished and appears stated age. He is morbidly obese. Eye: Conjunctivae are clear. There are no xanthelasma. HENT: Normocephalic. Atraumatic. Carotid pulsations 2/2 without bruits. Neck: Jugular venous pressure does not appear elevated. No thyromegaly appreciated. Respiratory: Symmetrical expansion bilaterally. Coarse breath sounds due to the ventilator. Cardiovascular: Normal rate. Regular rhythm. No murmur. No gallop. Point of maximal impulse is not appear displaced. Good pulses equal in all extremities. No edema. Gastrointestinal: Soft. Normal bowel sounds. Skin: Skin turgor is normal. There is no pallor. Musculoskeletal: No obvious deformities. Neurologic: Intubated and sedated. Psychiatric: Not obtainable due to clinical status. Labs Laboratory Tests Test 06/11/22 12:06 9/23/22 18:02 06/12/22 00:40 06/12/22 04:38 Range/Units Glucometer 111 H 103 142 H 70-110 MG/DL Sodium Level 146 H 135-145 MMOL/L Potassium Level 2.9 L 3.6-5.0 MMOL/L Chloride Level 101 98-107 MMOL/L Carbon Dioxide Level 31 21-32 MMOL/L Anion Gap 14 5-14 MMOL/L Blood Urea Nitrogen 26 H 7-18 MG/DL Creatinine 1.07 0.60-1.30 MG/DL Estimat Glomerular Filtration Rate 87 BUN/Creatinine Ratio 24 Glucose Level 125 H 70-105 MG/DL Calcium Level 9.2 8.5-10.1 MG/DL Corrected Calcium 9.8 8.5-10.1 MG/DL Total Bilirubin 1.0 0.1-1.0 MG/DL Aspartate Amino Transf (AST/SGOT) 62 H 5-34 U/L Alanine Aminotransferase (ALT/SGPT) 94 H 0-55 U/L Alkaline Phosphatase 95 40-136 U/L Total Protein 7.0 6.4-8.2 GM/DL Albumin 3.3 3.2-4.5 GM/DL Diagnosis/Problems Diagnosis/Problems (1) Acute heart failure with preserved ejection fraction (HFpEF) Assessment & Plan: His chest x-ray from today showed also some pulmonary congestion. He is receiving intravenous furosemide twice daily. We will continue to monitor. (2) Primary hypertension Assessment & Plan: He was on losartan at home but this has been held due to low blood pressures. (3) Morbid obesity Assessment & Plan: He will need to work on weight loss once he recovers from this acute illness. MINDY RAMOS JR, MD Jun 12, 2022 11:17
[2022-06-12 15:02] LABS: CLARITY,URINE CLOUDY; COLOR,URINE YELLOW; GLUCOSE, URINE (UA) TRACE (NEGATIVE); KETONES,URINE NEGATIVE (NEGATIVE); LEUKOCYTE ESTERASE ,URINE NEGATIVE (NEGATIVE); NITRITE,URINE NEGATIVE (NEGATIVE); PROTEIN,URINE 1+ (NEGATIVE)
[2022-06-12 15:34] LABS: BACTERIA,URINE NEGATIVE /HPF; BILIRUBIN,URINE 2+ (NEGATIVE); HYALINE CASTS, URINE RARE /LPF; RBC,URINE 50-100 /HPF
--- NOTE | 2022-06-12 18:37 | Diagnostic Imaging Report ---
EXAMINATION: Chest 1 view. HISTORY: Worsening hypoxia. COMPARISON: Chest radiograph performed earlier the same date. FINDINGS: Endotracheal tube is stable in configuration. There are decreased lung volumes with worsening hazy opacities throughout the lungs. Persistent cardiomegaly. IMPRESSION: Low lung volumes with worsening hazy opacities and cardiomegaly, suggestive of worsening pulmonary edema. Dictated by: Dictated on workstation # [id number]
[2022-06-12] MEDS ORDERED: FUROSEMIDE 40 MG/4 ML INJ (LASIX) ONE (18:56)
[2022-06-12] MEDS ORDERED: FUROSEMIDE 40 MG/4 ML INJ (LASIX) IVP ONE (19:00)
[2022-06-13] VITALS (7 sets, daily range): BP systolic 89–111; BP diastolic 56–69
[2022-06-13] MEDS: PROPOFOL DRIP (ICU) 100 ML IV SCH ×5 (00:03→22:15)
[2022-06-13] MEDS: fentaNYL DRIP PRE-MIX 250 ML IV SCH ×3 (00:04→18:26)
[2022-06-13] MEDS: aCETylcysteine 20% (MUCOMYST) 4 ML SOLN VIAL INH SCH ×4 (02:36→21:58)
[2022-06-13] MEDS: RT-ALBUTEROL/IPRATROPIUM 3 ML (DUONEB) VIAL INH SCH ×6 (02:36→21:58)
[2022-06-13] MEDS: NOREPINEPHRINE 8 MG/250 ML 250 ML IV SCH ×3 (03:15→22:55)
[2022-06-13 03:34] LABS: BASOPHILS # (AUTO) 0.1 10^3/uL (0.0-0.1); BASOPHILS % (AUTO) 1 % (0-10); EOSINOPHILS # (AUTO) 0.2 10^3/uL (0.0-0.3); EOSINOPHILS % (AUTO) 2 % (0-10); HEMATOCRIT 47 % (40-54); LYMPHOCYTES # (AUTO) 0.9 10^3/uL (1.0-4.0); LYMPHOCYTES % (AUTO) 10 % (12-44); MEAN CORPUSCULAR HEMOGLOBIN 24 pg (25-34); MEAN CORPUSCULAR HGB CONC 30 g/dL (32-36); MEAN CORPUSCULAR VOLUME 81 fL (80-99); MEAN PLATELET VOLUME 9.7 fL (9.0-12.2); MONOCYTES # (AUTO) 0.8 10^3/uL (0.0-1.0); MONOCYTES % (AUTO) 9 % (0-12); NEUTROPHILS # (AUTO) 7.1 10^3/uL (1.8-7.8); NEUTROPHILS % (AUTO) 79 % (42-75); PLATELET COUNT 224 10^3/uL (130-400); WHITE BLOOD COUNT 8.9 10^3/uL (4.3-11.0)
[2022-06-13 03:50] LABS: ALBUMIN 3.3 GM/DL (3.2-4.5); CALCIUM 9.1 MG/DL (8.5-10.1); CREATININE SERUM 1.09 MG/DL (0.60-1.30); MAGNESIUM 2.5 MG/DL (1.6-2.4); PHOSPHORUS 3.2 MG/DL (2.3-4.7); POTASSIUM 3.3 MMOL/L (3.6-5.0)
[2022-06-13 04:01] LABS: ABG BASE EXCESS 9.9 MMOL/L (-2.5-2.5); ABG OXYGEN SATURATION 92 % (94-100); ABG PCO2 59 MMHG (35-45); ABG PH 7.39 (7.37-7.43); ABG PO2 59 MMHG (79-93); ALLENS TEST YES-POS
[2022-06-13 04:02] LABS: INSPIRED O2 75%; PATIENT TEMP 36.6; VENTILATOR YES
[2022-06-13] MEDS: POTASSIUM CL 10MEQ/50ML IVPB 50 ML IV SCH ×5 (04:34→09:03)
[2022-06-13] MEDS: FUROSEMIDE 40 MG/4 ML INJ (LASIX) IVP SCH ×2 (05:33→17:30)
[2022-06-13] MEDS: CATHETER FLUSH 10 ML SYR IV SCH ×3 (05:34→21:50)
[2022-06-13] MEDS: MAGNESIUM 1 GM/100 ML IVPB 100 ML IV SCH (05:34)
[2022-06-13] MEDS: KCL 20 MEQ TAB (K-DUR) PO SCH (05:34)
--- NOTE | 2022-06-13 06:59 | Progress Note - Hospitalist ---
Subjective HPI/CC On Admission Date Seen by Provider: Jun 13, 2022 Time Seen by Provider: 11:00 CC: Acute respiratory failure HPI: This is a 46 yr old male who presented to the ER with SOB. He was found to have CHF and he failed BiPAP. He required intubation. His vent settings are 500/22/10 at 100%. Sister is at the bedside. Considering his CO2 is severely elevated at 101, his pH is 7.23 he has a guarded prognosis at this point. Chest x-ray showed opacities, will check procalcitonin and labs this morning. Subjective/Events-last exam Wean protocol unsuccessful Father and sister at bedside Awake Right heart cath may be required Objective Exam Vital Signs Vital Signs Date Time Temp Pulse Resp B/P (MAP) Pulse Ox O2 Delivery O2 Flow Rate FiO2 06/13/22 13:51 92 114/72 06/13/22 12:38 36.5 06/13/22 12:07 91 Mechanical Ventilator 75 06/13/22 12:00 18 75.00 Capillary Refill : Less Than 3 Seconds General Appearance: No Apparent Distress, WD/WN, Chronically ill, Obese Respiratory: Lungs Clear, Normal Breath Sounds Cardiovascular: Regular Rate, Rhythm Results/Procedures Lab Laboratory Tests 06/13/22 03:25 Patient resulted labs reviewed. Assessment/Plan Assessment and Plan Assess & Plan/Chief Complaint Assessment: Acute respiratory failure Ventilator dependent Flash pulmonary edema Severe anasarca Severe obesity Plan: Diuresis Vent management Critical Care Ventilator Management AUBREE ZHU DO Jun 13, 2022 06:59
--- NOTE | 2022-06-13 08:25 | Tele-ICU Progress Note ---
Subjective Date Seen by a Provider: Jun 11, 2022 Time Seen by a Provider: 11:56 Subjective/Events-last exam Delayes entry - mote missed , copied from e-care system - 06/11/22 , 11.56 am (Tele-ICU Physician , Progress Note ) Available chart/ vitals / labs / Images reviewed Video assessment done using teleICU camera, rest of exam as per RN Discussed with RN Events overnight : Afebrile hemodynamically stable Respiratory - I/O = Drips: Pressors- no VENT SETTINGS and ABG reviewed Sedation: RASS FENTANYL 75 PROPOFOL 5 Not candidate for SBTContraindications : Cardiovascular Stability /Sedation Score / FI02/PEEP / ABG / CXR Consultants: Hospital course: 06/11- AC 18-500 -50% + 10 A/P Acute on chronic hypercarbic respiratory failure with acute CHF - cont vent suppoer - AC 18-500 -50% + 10 - responded to diuresis- as per cards lasix 80 bid - will decrease PEEP today - try SBT tomorrow Acute diastolic CHF - Echocardiogram of 06-07-22 showed LVEF 55-60% Elevated liver enzymes - possibly hepatobiliary congestion d/t CHF - improving with aggressive diuresis Ovesity -? obesity-hypoventilation syndrome/ / MYRON Replace lytes Lines : PICC 06/07, (Central Line Necessity Reviewed) Salazar: + OG: Nutrition: tf Analgesia: Anxiety/ delirium VTE Prophylaxis: ppi iv Stress Ulcer Prophylaxis: hep q8 Plans in collaboration with bedside consultants and IM MDs. Discussed with RN to reach out if any questions or concerns A total of 31 s minutes of critical care time was devoted to this patient today, required to treat and/or prevent further deterioration of critical care condition ( as above ) . Sepsis Event Evaluation Height, Weight, BMI Height: '" Weight: lbs. oz. kg; 43.25 BMI Method: Exam Exam Patient acknowledged, consented, and participated in this virtual visit which was conducted using real time audio/video Vital Signs Date Time Temp Pulse Resp B/P (MAP) Pulse Ox O2 Delivery O2 Flow Rate FiO2 06/13/22 07:46 36.5 06/13/22 07:45 75 06/13/22 07:40 101 18 93 75 06/13/22 07:00 87 06/13/22 06:00 91 18 104/63 (77) 93 Mechanical Ventilator 75.00 9/25/22 05:00 112 22 116/76 (89) 92 Mechanical Ventilator 75.00 06/13/22 04:00 94 Mechanical Ventilator 75 06/13/22 04:00 65 06/13/22 04:00 36.4 Mechanical Ventilator 75.00 06/13/22 04:00 106 26 128/86 (100) 88 Mechanical Ventilator 75.00 06/13/22 04:00 06/13/22 04:00 90 18 95 06/13/22 03:00 95 8 93 Mechanical Ventilator 75.00 06/13/22 02:36 89 18 93 75 06/13/22 02:00 92 18 93 Mechanical Ventilator 75.00 06/13/22 01:00 98 20 94 Mechanical Ventilator 75.00 06/13/22 00:43 91 06/13/22 00:13 36.6 Mechanical Ventilator 75.00 06/13/22 00:00 92 19 92 Mechanical Ventilator 75.00 06/13/22 00:00 92 Mechanical Ventilator 75 06/13/22 00:00 65 06/12/22 23:00 96 22 93 Mechanical Ventilator 75.00 06/12/22 22:00 105 22 90 Mechanical Ventilator 75.00 06/12/22 21:54 101 18 93 75 06/12/22 21:50 101 06/12/22 21:00 90 20 94 Mechanical Ventilator 75.00 06/12/22 20:00 65 06/12/22 20:00 116/66 (83) 06/12/22 20:00 84 18 96 Mechanical Ventilator 75.00 06/12/22 20:00 90 Mechanical Ventilator 75 06/12/22 19:46 36.7 06/12/22 19:29 94 06/12/22 19:00 82 18 92 Mechanical Ventilator 75.00 06/12/22 18:34 86 18 95 75 06/12/22 18:33 94 06/12/22 18:00 80 18 92 Mechanical Ventilator 75.00 06/12/22 17:00 85 20 92 Mechanical Ventilator 75.00 06/12/22 16:45 75.00 06/12/22 16:28 90 Mechanical Ventilator 65 06/12/22 16:08 65 06/12/22 16:00 85 19 89 Mechanical Ventilator 60.00 06/12/22 15:45 36.4 06/12/22 15:29 87 99/56 06/12/22 15:00 88 18 92 Mechanical Ventilator 60.00 06/12/22 14:47 85 18 93 60 06/12/22 14:00 82 18 93 Mechanical Ventilator 60.00 06/12/22 13:49 82 90/53 06/12/22 13:00 86 18 90 Mechanical Ventilator 60.00 06/12/22 12:45 90 Mechanical Ventilator 60 06/12/22 12:44 60 06/12/22 12:30 36.6 06/12/22 12:25 93 06/12/22 12:00 90 19 90 Mechanical Ventilator 60.00 06/12/22 11:14 Mechanical Ventilator 60.00 06/12/22 11:00 96 18 91 Mechanical Ventilator 50.00 06/12/22 10:57 96 18 93 50 06/12/22 10:54 90 99/60 06/12/22 10:00 94 19 91 Mechanical Ventilator 50.00 06/12/22 09:07 105 107/72 06/12/22 09:00 108 95 Mechanical Ventilator 50.00 I & O 06/13/22 07:00 Intake Total 2590 ml Output Total 2230 ml Balance 360 ml Height & Weight Height: '" Weight: lbs. oz. kg; 43.25 BMI Method: General Appearance: No Apparent Distress, WD/WN, Chronically ill, Other (Sedated and ventilated) HEENT: Pharynx Normal, Moist Mucous Membranes Neck: Full Range of Motion, Normal Inspection, Non Tender Respiratory: Decreased Breath Sounds Cardiovascular: Regular Rate, Rhythm Capillary Refill: Less Than 3 Seconds Gastrointestinal: normal bowel sounds, non tender Extremity: No Calf Tenderness, Pedal Edema, Swelling Neurologic/Psychiatric: Alert, Oriented x3, Other (sedatsed) Skin: Normal Color, Warm/Dry Results Lab Laboratory Tests 06/12/22 04:38 06/13/22 03:25 Assessment/Plan Assessment/Plan 1 CLARITA HARTMAN MD Jun 13, 2022 08:25
--- NOTE | 2022-06-13 08:28 | Diagnostic Imaging Report ---
INDICATION: Intubated EXAMINATION: Chest 06/13/2022 COMPARISON: 06/12/2022. FINDINGS: There is cardiomegaly with pulmonary vascular congestion. There are bilateral infiltrates diffusely throughout the lungs with findings of edema also noted. There is likely small left effusion. There is no pneumothorax. There is a possible right central line poorly visualized distally. There is an enteric tube which courses beneath the diaphragm with its tip not seen. ET tube unremarkable. IMPRESSION: 1. Persistent bilateral infiltrates and findings of pulmonary edema similar to previous examination. Dictated by: Dictated on workstation # [id number]
[2022-06-13] MEDS: PANTOPRAZOLE 40 MG (PROTONIX) VIAL IV SCH (09:22)
[2022-06-13] MEDS: LACRI-LUBE OPTHALMIC OINT 3.5 GM TUBE OU SCH ×2 (09:22→20:28)
[2022-06-13] MEDS: LOSARTAN 50 MG (COZAAR) TAB PO SCH (09:22)
--- NOTE | 2022-06-13 10:04 | Cardiology Progress Note ---
Progress Note-Cardiology Events since last exam Date Seen by Provider: Jun 13, 2022 Time Seen by Provider: 09:45 Events since last exam We are following him due to heart failure. He remains intubated and sedated. When the nurse lightens the sedation, he is able to wake up enough to write messages on a dry board and communicate. Yesterday the nurse had to increase his PEEP and FiO2 due to increasing oxygen requirements. The eICU asked about starting him on dobutamine or milrinone. When I saw the patient, he was completely sedated and not responding. I spoke to his parents and the nurse who were at his bedside. Certain portions of this document may have been dictated utilizing voice recognition technology. Inherent to this technology, typographical and grammatical errors may exist. As much as I am diligent to identify and correct these mistakes, some errors may remain in the document. Vitals Last set of Vitals Signs Vital Signs 06/13/22 06/13/22 06/13/22 06/13/22 07:45 07:46 09:00 09:22 Temp 36.5 Pulse 109 Resp 22 B/P (MAP) 124/70 Pulse Ox 92 O2 Delivery Mechanical Ventilator O2 Flow Rate 75.00 FiO2 75 Labs Labs Laboratory Tests 06/13/22 03:25 Exam Vital Signs Vital Signs Date Time Temp Pulse Resp B/P (MAP) Pulse Ox O2 Delivery O2 Flow Rate FiO2 06/13/22 09:22 109 124/70 06/13/22 09:00 22 92 Mechanical Ventilator 75.00 06/13/22 07:46 36.5 06/13/22 07:45 75 Physical Exam General: Intubated and sedated. Well nourished and appears stated age. He is morbidly obese. Eye: Conjunctivae are clear. There are no xanthelasma. HENT: Normocephalic. Atraumatic. Carotid pulsations 2/2 without bruits. Neck: Jugular venous pressure does not appear elevated. No thyromegaly appreciated. Respiratory: Symmetrical expansion bilaterally. Coarse breath sounds due to the ventilator. Cardiovascular: Normal rate. Regular rhythm. Distant S1/S2. No murmur. No gallop. Point of maximal impulse is not appear displaced. Good pulses equal in all extremities. No edema. Gastrointestinal: Soft. Normal bowel sounds. Skin: Skin turgor is normal. There is no pallor. Musculoskeletal: No obvious deformities. Neurologic: Intubated and sedated. Psychiatric: Not obtainable due to clinical status. Labs Laboratory Tests Test 06/12/22 12:46 06/12/22 14:45 06/12/22 17:49 06/12/22 23:50 Range/Units Glucometer 133 H 116 H 112 H 70-110 MG/DL Urine Color YELLOW Urine Clarity CLOUDY Urine pH 5.0 5-9 Urine Specific Tama >=1.030 1.016-1.022 Urine Protein 1+ H NEGATIVE Urine Glucose (UA) TRACE H NEGATIVE Urine Ketones NEGATIVE NEGATIVE Urine Nitrite NEGATIVE NEGATIVE Urine Bilirubin 2+ H NEGATIVE Urine Urobilinogen >=8.0 < = 1.0 MG/DL Urine Leukocyte Esterase NEGATIVE NEGATIVE Urine RBC (Auto) 1+ H NEGATIVE Urine RBC 50-100 H /HPF Urine WBC NONE /HPF Urine Squamous Epithelial Cells NONE /HPF Urine Crystals NONE /LPF Urine Bacteria NEGATIVE /HPF Urine Casts PRESENT /LPF Urine Hyaline Casts RARE /LPF Urine Mucus NEGATIVE /LPF Urine Culture Indicated NO Test 06/13/22 03:25 06/13/22 03:37 Range/Units White Blood Count 8.9 4.3-11.0 10^3/uL Red Blood Count 5.84 H 4.30-5.52 10^6/uL Hemoglobin 14.0 13.3-17.7 g/dL Hematocrit 47 40-54 % Mean Corpuscular Volume 81 80-99 fL Mean Corpuscular Hemoglobin 24 L 25-34 pg Mean Corpuscular Hemoglobin Concent 30 L 32-36 g/dL Red Cell Distribution Width 16.9 H 10.0-14.5 % Platelet Count 224 130-400 10^3/uL Mean Platelet Volume 9.7 9.0-12.2 fL Immature Granulocyte % (Auto) 0 % Neutrophils (%) (Auto) 79 H 42-75 % Lymphocytes (%) (Auto) 10 L 12-44 % Monocytes (%) (Auto) 9 0-12 % Eosinophils (%) (Auto) 2 0-10 % Basophils (%) (Auto) 1 0-10 % Neutrophils # (Auto) 7.1 1.8-7.8 10^3/uL Lymphocytes # (Auto) 0.9 L 1.0-4.0 10^3/uL Monocytes # (Auto) 0.8 0.0-1.0 10^3/uL Eosinophils # (Auto) 0.2 0.0-0.3 10^3/uL Basophils # (Auto) 0.1 0.0-0.1 10^3/uL Immature Granulocyte # (Auto) 0.0 0.0-0.1 10^3/uL Sodium Level 145 135-145 MMOL/L Potassium Level 3.3 L 3.6-5.0 MMOL/L Chloride Level 101 98-107 MMOL/L Carbon Dioxide Level 29 21-32 MMOL/L Anion Gap 15 H 5-14 MMOL/L Blood Urea Nitrogen 30 H 7-18 MG/DL Creatinine 1.09 0.60-1.30 MG/DL Estimat Glomerular Filtration Rate 85 BUN/Creatinine Ratio 28 Glucose Level 118 H 70-105 MG/DL Calcium Level 9.1 8.5-10.1 MG/DL Corrected Calcium 9.7 8.5-10.1 MG/DL Phosphorus Level 3.2 2.3-4.7 MG/DL Magnesium Level 2.5 H 1.6-2.4 MG/DL Total Bilirubin 1.0 0.1-1.0 MG/DL Aspartate Amino Transf (AST/SGOT) 41 H 5-34 U/L Alanine Aminotransferase (ALT/SGPT) 79 H 0-55 U/L Alkaline Phosphatase 113 40-136 U/L Total Protein 7.0 6.4-8.2 GM/DL Albumin 3.3 3.2-4.5 GM/DL Triglycerides Level 149 <150 MG/DL Blood Gas Puncture Site LT RADIAL Blood Gas Patient Temperature 36.6 Arterial Blood pH 7.39 7.37-7.43 Arterial Blood Partial Pressure CO2 59 H 35-45 MMHG Arterial Blood Partial Pressure O2 59 L 79-93 MMHG Arterial Blood HCO3 35 H 23-27 MMOL/L Arterial Blood Total CO2 37.0 H 21.0-31.0 MMOL/L Arterial Blood Oxygen Saturation 92 L 94-100 % Arterial Blood Base Excess 9.9 H -2.5-2.5 MMOL/L Hasmukh Test YES-POS Blood Gas Ventilator Setting YES Blood Gas Inspired Oxygen 75% Diagnosis/Problems Diagnosis/Problems (1) Acute heart failure with preserved ejection fraction (HFpEF) Assessment & Plan: His chest x-ray from 06/12 and again today on 06/13 show persistent pulmonary congestion. He is receiving intravenous furosemide twice daily. His urine is starting to become somewhat dark but his creatinine is stable although his BUN is starting to increase. I would question whether or not he may be euvolemic at this point in time. That would raise a concern for possible noncardiogenic pulmonary edema. He may benefit from a right heart catheterization. For today, I asked the nurse to continue with the present dose of intravenous furosemide. I have asked her to stop his tube feeds at 02:00 on 06/14 in case we do decide to proceed with a right heart catheterization on 06/14. I will leave this up to the discretion of Dr. Amato who has been following the patient before the weekend. (2) Primary hypertension Assessment & Plan: He was on losartan at home but this has been held due to low blood pressures. (3) Acute respiratory failure with hypoxemia Assessment & Plan: This has been felt to be primarily due to heart failure. However, he now seems to be euvolemic or perhaps even a little bit on the hypovolemic side. He may benefit from a right heart catheterization as outlined above. His sputum cultures have been negative and he has not been treated with antibiotics. (4) Morbid obesity Assessment & Plan: He will need to work on weight loss once he recovers from this acute illness. Some component of restrictive lung disease due to his obesity may also be contributing to his respiratory failure. MINDY RAMOS JR, MD Jun 13, 2022 10:04
--- NOTE | 2022-06-13 10:33 | Tele-ICU Progress Note ---
Subjective Date Seen by a Provider: Jun 13, 2022 Time Seen by a Provider: 10:32 Subjective/Events-last exam Tele-ICU Physician , Progress Note ) Available chart/ vitals / labs / Images reviewed Video assessment done using teleICU camera, rest of exam as per RN Discussed with RN Events overnight : Afebrile hemodynamically stable Respiratory - 70% +10 I/O = even Drips: Pressors- no VENT SETTINGS and ABG reviewed Sedation: RASS FENTANYL 175 PROPOFOL 20 Not candidate for SBTContraindications : Cardiovascular Stability /Sedation Score /FI02/PEEP / ABG / CXR Consultants: [facility] Hospital course: 06/11- AC 18-500 -50% + 10 06/12 - 50% +5 06/13 -70% + 10 A/P Acute on chronic hypercarbic respiratory failure with acute CHF - cont vent support - 75% + 10 - WORSENING today - ? needs more agressive diureis - as per cards lasix 80 bid- ? add diamox - will increase PEEP to 15 - check PCT Acute diastolic CHF - Echocardiogram of 06-07-22 showed LVEF 55-60% - diuresis as per mentioned above Elevated liver enzymes - possibly hepatobiliary congestion d/t CHF - improving with aggressive diuresis Ovesity -? obesity-hypoventilation syndrome/ / MYRON Replace lytes Lines : PICC 06/07, (Central Line Necessity Reviewed) Salazar: + OG: Nutrition: TF 65 /h Analgesia: Anxiety/ delirium VTE Prophylaxis: hep 5K tid Stress Ulcer Prophylaxis: PPi Plans in collaboration with bedside consultants and IM MDs. Discussed with RN to reach out if any questions or concerns A total of 31 minutes of critical care time was devoted to this patient today, required to treat and/or prevent further deterioration of critical care condition ( as above ) . I am remotely monitoring this patient from another state. I am unable to do bedside exam, and history/physical and peritinent information is taken from other notes in the computer and bedside staff. I cannot take responsibility for the accuracy of this information. Sepsis Event Evaluation Height, Weight, BMI Height: '" Weight: lbs. oz. kg; 43.25 BMI Method: Exam Exam Patient acknowledged, consented, and participated in this virtual visit which was conducted using real time audio/video Vital Signs Date Time Temp Pulse Resp B/P (MAP) Pulse Ox O2 Delivery O2 Flow Rate FiO2 06/13/22 09:22 109 124/70 06/13/22 09:00 101 22 112/66 (81) 92 Mechanical Ventilator 75.00 06/13/22 08:00 94 18 131/123 (126) 93 Mechanical Ventilator 75.00 06/13/22 07:46 36.5 06/13/22 07:45 92 Mechanical Ventilator 75 06/13/22 07:45 75 06/13/22 07:40 101 18 93 75 06/13/22 07:00 87 06/13/22 06:00 91 18 104/63 (77) 93 Mechanical Ventilator 75.00 06/13/22 05:00 112 22 116/76 (89) 92 Mechanical Ventilator 75.00 06/13/22 04:00 94 Mechanical Ventilator 75 06/13/22 04:00 65 06/13/22 04:00 36.4 Mechanical Ventilator 75.00 06/13/22 04:00 106 26 128/86 (100) 88 Mechanical Ventilator 75.00 06/13/22 04:00 06/13/22 04:00 90 18 95 06/13/22 03:00 95 8 93 Mechanical Ventilator 75.00 06/13/22 02:36 89 18 93 75 06/13/22 02:00 92 18 93 Mechanical Ventilator 75.00 06/13/22 01:00 98 20 94 Mechanical Ventilator 75.00 06/13/22 00:43 91 06/13/22 00:13 36.6 Mechanical Ventilator 75.00 06/13/22 00:00 92 19 92 Mechanical Ventilator 75.00 06/13/22 00:00 92 Mechanical Ventilator 75 06/13/22 00:00 65 06/12/22 23:00 96 22 93 Mechanical Ventilator 75.00 06/12/22 22:00 105 22 90 Mechanical Ventilator 75.00 06/12/22 21:54 101 18 93 75 06/12/22 21:50 101 06/12/22 21:00 90 20 94 Mechanical Ventilator 75.00 06/12/22 20:00 65 06/12/22 20:00 116/66 (83) 06/12/22 20:00 84 18 96 Mechanical Ventilator 75.00 06/12/22 20:00 90 Mechanical Ventilator 75 06/12/22 19:46 36.7 06/12/22 19:29 94 06/12/22 19:00 82 18 92 Mechanical Ventilator 75.00 06/12/22 18:34 86 18 95 75 06/12/22 18:33 94 06/12/22 18:00 80 18 92 Mechanical Ventilator 75.00 06/12/22 17:00 85 20 92 Mechanical Ventilator 75.00 06/12/22 16:45 75.00 06/12/22 16:28 90 Mechanical Ventilator 65 06/12/22 16:08 65 06/12/22 16:00 85 19 89 Mechanical Ventilator 60.00 06/12/22 15:45 36.4 06/12/22 15:29 87 99/56 06/12/22 15:00 88 18 92 Mechanical Ventilator 60.00 06/12/22 14:47 85 18 93 60 06/12/22 14:00 82 18 93 Mechanical Ventilator 60.00 06/12/22 13:49 82 90/53 06/12/22 13:00 86 18 90 Mechanical Ventilator 60.00 06/12/22 12:45 90 Mechanical Ventilator 60 06/12/22 12:44 60 06/12/22 12:30 36.6 06/12/22 12:25 93 06/12/22 12:00 90 19 90 Mechanical Ventilator 60.00 06/12/22 11:14 Mechanical Ventilator 60.00 06/12/22 11:00 96 18 91 Mechanical Ventilator 50.00 06/12/22 10:57 96 18 93 50 06/12/22 10:54 90 99/60 I & O 06/13/22 07:00 Intake Total 2590 ml Output Total 2230 ml Balance 360 ml Height & Weight Height: '" Weight: lbs. oz. kg; 43.25 BMI Method: General Appearance: No Apparent Distress, WD/WN, Chronically ill, Other (Sedated and ventilated) HEENT: Pharynx Normal, Moist Mucous Membranes Neck: Full Range of Motion, Normal Inspection, Non Tender Respiratory: Decreased Breath Sounds Cardiovascular: Regular Rate, Rhythm Capillary Refill: Less Than 3 Seconds Gastrointestinal: normal bowel sounds, non tender Extremity: No Calf Tenderness, Pedal Edema, Swelling Neurologic/Psychiatric: Alert, Oriented x3, Other (sedatsed) Skin: Normal Color, Warm/Dry Results Lab Laboratory Tests 06/12/22 04:38 06/13/22 03:25 Assessment/Plan Assessment/Plan 1 CLARITA HARTMAN MD Jun 13, 2022 10:32
[2022-06-13] MEDS ORDERED: ARTIFICAL TEARS 0.4 ML UNIT DOSE (REFRESH PLUS) OD PRN (12:30)
[2022-06-14] MEDS: PROPOFOL DRIP (ICU) 100 ML IV SCH ×6 (01:24→20:44)
[2022-06-14] MEDS: fentaNYL DRIP PRE-MIX 250 ML IV SCH ×3 (01:43→14:47)
[2022-06-14 02:27] VITALS: BP 107/70
[2022-06-14] MEDS: RT-ALBUTEROL/IPRATROPIUM 3 ML (DUONEB) VIAL INH SCH ×5 (02:27→19:08)
[2022-06-14] MEDS: aCETylcysteine 20% (MUCOMYST) 4 ML SOLN VIAL INH SCH ×3 (02:27→14:51)
[2022-06-14 04:39] LABS: ABG BASE EXCESS 9.9 MMOL/L (-2.5-2.5); ABG OXYGEN SATURATION 92 % (94-100); ABG PCO2 59 MMHG (35-45); ABG PH 7.39 (7.37-7.43); ABG PO2 56 MMHG (79-93); ABG TCO2 37.3 MMOL/L (21.0-31.0)
[2022-06-14 04:40] LABS: BASOPHILS # (AUTO) 0.1 10^3/uL (0.0-0.1); BASOPHILS % (AUTO) 1 % (0-10); EOSINOPHILS # (AUTO) 0.2 10^3/uL (0.0-0.3); EOSINOPHILS % (AUTO) 2 % (0-10); HEMATOCRIT 47 % (40-54); HEMOGLOBIN 13.7 g/dL (13.3-17.7); LYMPHOCYTES # (AUTO) 1.3 10^3/uL (1.0-4.0); LYMPHOCYTES % (AUTO) 15 % (12-44); MEAN CORPUSCULAR HEMOGLOBIN 24 pg (25-34); MEAN CORPUSCULAR HGB CONC 29 g/dL (32-36); MEAN CORPUSCULAR VOLUME 83 fL (80-99); MONOCYTES % (AUTO) 11 % (0-12); NEUTROPHILS % (AUTO) 71 % (42-75); PLATELET COUNT 248 10^3/uL (130-400); WHITE BLOOD COUNT 8.5 10^3/uL (4.3-11.0)
[2022-06-14 04:43] LABS: ALLENS TEST YES-POS
[2022-06-14 04:44] LABS: INSPIRED O2 75%; VENTILATOR YES
[2022-06-14 05:02] LABS: ALBUMIN 3.2 GM/DL (3.2-4.5); BILIRUBIN,TOTAL 1.3 MG/DL (0.1-1.0); CALCIUM 9.1 MG/DL (8.5-10.1); CREATININE SERUM 0.89 MG/DL (0.60-1.30); MAGNESIUM 2.5 MG/DL (1.6-2.4); PHOSPHORUS 2.8 MG/DL (2.3-4.7); POTASSIUM 3.5 MMOL/L (3.6-5.0)
[2022-06-14] MEDS: KCL 20 MEQ TAB (K-DUR) PO SCH (05:16)
[2022-06-14] MEDS: MAGNESIUM 1 GM/100 ML IVPB 100 ML IV SCH (05:16)
[2022-06-14] MEDS: POTASSIUM CL 10MEQ/50ML IVPB 50 ML IV SCH ×2 (05:19→05:43)
[2022-06-14] MEDS ORDERED: POTASSIUM CL 10MEQ/50ML IVPB 100 ML IV ONE (05:33)
[2022-06-14] MEDS: CATHETER FLUSH 10 ML SYR IV SCH ×2 (06:00→19:37)
[2022-06-14] MEDS: FUROSEMIDE 40 MG/4 ML INJ (LASIX) IVP SCH ×2 (06:00→18:31)
--- NOTE | 2022-06-14 06:44 | Occ Therapy Progress Note ---
Therapy Progress Note Pt currently intubated. OT to monitor pt's status then will initiate treatment when pt is medically stable and able to actively participate in skilled therapy. ESTEPHANIE GARCIA Jun 14, 2022 06:44
[2022-06-14 07:10] VITALS: BP 99/70
--- NOTE | 2022-06-14 07:49 | Diagnostic Imaging Report ---
INDICATION: Follow-up on ventilator, CHF. EXAMINATION: Chest 06/14/2022 COMPARISON: 06/13/2022. FINDINGS: There is cardiomegaly and pulmonary vascular congestion with findings of edema throughout both lungs. There are bibasilar infiltrates, left greater than right. No significant effusions. No pneumothorax. Feeding tube coursing beneath the diaphragm. ET tube just past the thoracic inlet. There is a right PICC line tip likely in the SVC. IMPRESSION: 1. Pulmonary edema with bibasilar infiltrates, left greater than right. Tubes as above. Dictated by: Dictated on workstation # [id number]
[2022-06-14] MEDS: PANTOPRAZOLE 40 MG (PROTONIX) VIAL IV SCH (08:47)
[2022-06-14] MEDS: NOREPINEPHRINE 8 MG/250 ML 250 ML IV SCH ×2 (09:02→18:31)
--- NOTE | 2022-06-14 09:20 | Tele-ICU Progress Note ---
Subjective Time Seen by a Provider: 09:20 Subjective/Events-last exam Tele-ICU Physician , Progress Note ) Available chart/ vitals / labs / Images reviewed Video assessment done using teleICU camera, rest of exam as per RN Discussed with RN Events overnight : Afebrile hemodynamically stable Respiratory - 70% +10 I/O = positive 1 l Drips: Pressors- levo 0.03 VENT SETTINGS and ABG reviewed Sedation: RASS 0 , FENTANYL 175 PROPOFOL 30 Not candidate for SBTContraindications : Cardiovascular Stability /Sedation Score /FI02/PEEP / ABG / CXR Consultants: [facility] Hospital course: 06/11- AC 18-500 -50% + 10 06/12 - 50% +5 06/13 -70% + 10 06/14- 85% + 12 , on levo A/P Acute on chronic hypercarbic respiratory failure with acute CHF - cont vent support - 85% + 12- WORSENING today - ? needs more agressive diureis - as per cards lasix 80 bid - will try to increase PEEP - HYPOTENSIVE WITH INCREASED PEEP TO !% YESTERDAy -PCT 0.2 - Right heart cath considered - Shock - strted on levo 06/13 -? cardiac vs sepsis Acute diastolic CHF - Echocardiogram of 06-07- showed LVEF 55-60% - diuresis as per mentioned above Elevated liver enzymes - possibly hepatobiliary congestion d/t CHF - improving with aggressive diuresis Ovesity -? obesity-hypoventilation syndrome/ / MYRON Replace lytes hypernatremia - increase h20 to TF Lines : PICC 06/07, (Central Line Necessity Reviewed) Salazar: + OG: Nutrition: TF 65 /h Analgesia: Anxiety/ delirium VTE Prophylaxis: hep 5K tid Stress Ulcer Prophylaxis: PPi Plans in collaboration with bedside consultants and IM MDs. Discussed with RN to reach out if any questions or concerns A total of 31 minutes of critical care time was devoted to this patient today, required to treat and/or prevent further deterioration of critical care condition ( as above ) . I am remotely monitoring this patient from another state. I am unable to do bedside exam, and history/physical and peritinent information is taken from other notes in the computer and bedside staff. I cannot take responsibility for the accuracy of this information. Sepsis Event Evaluation Height, Weight, BMI Height: '" Weight: lbs. oz. kg; 43.25 BMI Method: Exam Exam Patient acknowledged, consented, and participated in this virtual visit which was conducted using real time audio/video Vital Signs Date Time Temp Pulse Resp B/P (MAP) Pulse Ox O2 Delivery O2 Flow Rate FiO2 06/14/22 09:00 93 18 113/78 (90) 93 Mechanical Ventilator 85.00 06/14/22 08:47 92 96/69 06/14/22 08:00 86 18 101/65 (77) 94 Mechanical Ventilator 85.00 06/14/22 07:10 84 18 92 85 06/14/22 07:00 88 18 93/70 (78) 92 Mechanical Ventilator 85.00 06/14/22 07:00 90 06/14/22 06:00 80 20 87/63 (71) 90 Mechanical Ventilator 85.00 06/14/22 06:00 89 101/66 06/14/22 05:51 36.8 Mechanical Ventilator 85.00 06/14/22 05:43 80 142/65 06/14/22 05:24 80 142/65 06/14/22 05:11 80 142/65 06/14/22 05:08 85 06/14/22 05:00 82 18 97/55 (69) 90 Mechanical Ventilator 85.00 06/14/22 04:58 80 11 91 06/14/22 04:14 36.0 06/14/22 04:00 80 11 142/65 (90) 93 Mechanical Ventilator 75.00 06/14/22 04:00 75 06/14/22 04:00 93 Mechanical Ventilator 75 06/14/22 03:00 86 18 98/63 (75) 93 Mechanical Ventilator 75.00 06/14/22 02:27 85 18 91 75 06/14/22 02:15 85 107/70 06/14/22 02:00 83 18 104/62 (76) 92 Mechanical Ventilator 75.00 06/14/22 01:43 85 99/65 06/14/22 01:24 85 99/65 06/14/22 01:00 85 18 86/57 (67) 91 Mechanical Ventilator 75.00 06/14/22 01:00 85 06/14/22 00:00 95 21 120/73 (89) 92 Mechanical Ventilator 75.00 06/14/22 00:00 36.8 06/14/22 00:00 75 06/13/22 23:59 93 Mechanical Ventilator 75 06/13/22 23:00 86 18 101/57 (72) 93 Mechanical Ventilator 75.00 06/13/22 22:55 86 99/65 06/13/22 22:25 86 99/65 06/13/22 22:25 86 99/65 06/13/22 22:15 86 99/65 06/13/22 22:00 86 18 93 75 06/13/22 22:00 87 19 104/58 (73) 92 Mechanical Ventilator 75.00 06/13/22 21:00 82 18 94/60 (71) 94 Mechanical Ventilator 75.00 06/13/22 21:00 93 Mechanical Ventilator 75 06/13/22 20:00 84 18 92/55 (67) 93 Mechanical Ventilator 75.00 06/13/22 20:00 91/58 (69) 06/13/22 20:00 75 06/13/22 19:51 93 Mechanical Ventilator 75 06/13/22 19:49 37.1 06/13/22 19:00 85 18 92/56 (68) 94 Mechanical Ventilator 75.00 06/13/22 19:00 85 06/13/22 18:39 88 18 93 75 06/13/22 18:27 92 104/60 06/13/22 18:26 93 104/60 06/13/22 18:00 110 28 202/192 (195) 91 Mechanical Ventilator 75.00 06/13/22 17:51 92 104/60 06/13/22 17:00 89 18 102/67 (79) 94 Mechanical Ventilator 75.00 06/13/22 16:44 37.2 06/13/22 16:41 91 Mechanical Ventilator 75 06/13/22 16:41 75 06/13/22 16:00 93 18 113/68 (83) 92 Mechanical Ventilator 75.00 06/13/22 15:18 91 18 93 75 06/13/22 15:00 90 18 102/66 (78) 94 Mechanical Ventilator 75.00 06/13/22 14:00 96 21 107/73 (84) 92 Mechanical Ventilator 75.00 06/13/22 13:51 92 114/72 06/13/22 13:00 84 18 98/85 (89) 92 Mechanical Ventilator 75.00 06/13/22 13:00 92 06/13/22 12:38 36.5 06/13/22 12:36 86 78/50 06/13/22 12:07 91 Mechanical Ventilator 75 06/13/22 12:06 75 06/13/22 12:00 88 18 78/50 (59) 92 Mechanical Ventilator 75.00 06/13/22 11:00 92 18 84/55 (65) 93 Mechanical Ventilator 75.00 06/13/22 10:37 88 18 91 75 06/13/22 10:00 89 18 83/49 (60) 92 Mechanical Ventilator 75.00 06/13/22 09:22 109 124/70 I & O 06/14/22 07:00 Intake Total 2445 ml Output Total 1100 ml Balance 1345 ml Height & Weight Height: '" Weight: lbs. oz. kg; 43.25 BMI Method: General Appearance: No Apparent Distress, WD/WN, Chronically ill, Obese HEENT: Pharynx Normal, Moist Mucous Membranes Neck: Full Range of Motion, Normal Inspection, Non Tender Respiratory: Lungs Clear, Normal Breath Sounds Cardiovascular: Regular Rate, Rhythm Capillary Refill: Less Than 3 Seconds Gastrointestinal: normal bowel sounds, non tender Extremity: No Calf Tenderness, Pedal Edema, Swelling Neurologic/Psychiatric: Alert, Oriented x3, Other (sedatsed) Skin: Normal Color, Warm/Dry Results Lab Laboratory Tests 06/13/22 03:25 06/14/22 04:25 Assessment/Plan Assessment/Plan 1 CLARITA HARTMAN MD Jun 14, 2022 09:20
[2022-06-14] MEDS ORDERED: LORazepam 1 MG (ATIVAN) TAB NG PRN (09:30)
[2022-06-14] MEDS ORDERED: LORazepam INJ 2 MG/ML (ATIVAN) VIAL IVP PRN (09:30)
[2022-06-14 10:20] VITALS: BP 98/64
[2022-06-14] MEDS ORDERED: ALTEPLASE 2 MG (CATHFLO) IV ONE (10:45)
[2022-06-14] MEDS ORDERED: WATER (STERILE) FOR INJECTION 10 ML ONE (11:04)
[2022-06-14] MEDS: LACRI-LUBE OPTHALMIC OINT 3.5 GM TUBE OU SCH ×2 (11:08→20:50)
[2022-06-14] MEDS: LOSARTAN 50 MG (COZAAR) TAB PO SCH (11:09)
--- NOTE | 2022-06-14 12:40 | Progress Note - Cardiology ---
Cardiology SOAP Progress Note Subjective: On [facility] vent Non-communicative Objective: I&O/Vital Signs 06/14/22 06/14/22 06/14/22 06/14/22 01:00 01:00 01:24 01:43 Pulse 85 85 85 85 Resp 18 B/P (MAP) 86/57 (67) 99/65 99/65 Pulse Ox 91 O2 Delivery Mechanical Ventilator O2 Flow Rate 75.00 06/14/22 06/14/22 06/14/22 06/14/22 02:00 02:15 02:27 03:00 Pulse 83 85 85 86 Resp 18 18 18 B/P (MAP) 104/62 (76) 107/70 98/63 (75) Pulse Ox 92 91 93 O2 Delivery Mechanical Ventilator Mechanical Ventilator O2 Flow Rate 75.00 75.00 FiO2 75 06/14/22 06/14/22 06/14/22 06/14/22 04:00 04:00 04:00 04:14 Temp 36.0 Pulse 80 Resp 11 B/P (MAP) 142/65 (90) Pulse Ox 93 93 O2 Delivery Mechanical Ventilator Mechanical Ventilator O2 Flow Rate 75.00 FiO2 75 75 06/14/22 06/14/22 06/14/22 06/14/22 04:58 05:00 05:08 05:11 Pulse 80 82 80 Resp 11 18 B/P (MAP) 97/55 (69) 142/65 Pulse Ox 91 90 O2 Delivery Mechanical Ventilator O2 Flow Rate 85.00 FiO2 85 06/14/22 06/14/22 06/14/22 06/14/22 05:24 05:43 05:51 06:00 Temp 36.8 Pulse 80 80 89 B/P (MAP) 142/65 142/65 101/66 O2 Delivery Mechanical Ventilator O2 Flow Rate 85.00 06/14/22 06/14/22 06/14/22 06/14/22 06:00 07:00 07:00 07:10 Pulse 80 90 88 84 Resp 20 18 18 B/P (MAP) 87/63 (71) 93/70 (78) Pulse Ox 90 92 92 O2 Delivery Mechanical Ventilator Mechanical Ventilator O2 Flow Rate 85.00 85.00 FiO2 85 06/14/22 06/14/22 06/14/22 06/14/22 07:45 07:45 07:45 08:00 Temp 36.7 Pulse 86 Resp 18 B/P (MAP) 101/65 (77) Pulse Ox 92 94 O2 Delivery Mechanical Ventilator Mechanical Ventilator O2 Flow Rate 85.00 FiO2 85 85 06/14/22 06/14/22 06/14/22 06/14/22 08:47 09:00 10:00 10:20 Pulse 92 93 78 78 Resp 18 18 18 B/P (MAP) 96/69 113/78 (90) 96/62 (73) Pulse Ox 93 96 96 O2 Delivery Mechanical Ventilator Mechanical Ventilator O2 Flow Rate 85.00 85.00 FiO2 85 06/14/22 06/14/22 06/14/22 11:00 11:09 12:00 Pulse 80 89 81 Resp 18 18 B/P (MAP) 101/70 (80) 99/66 102/71 (81) Pulse Ox 94 92 O2 Delivery Mechanical Ventilator Mechanical Ventilator O2 Flow Rate 85.00 85.00 06/14/22 00:00 Intake Total 1130 ml Output Total 525 ml Balance 605 ml Constitutional: other (intubated and sedated) Respiratory: other (intubated; good air entry) Cardiovascular: regular rate-rhythm; No JVD; S1 and S2 Gastrointestional: soft, audible bowel sounds Genital/Rectal: other (scrotal and penile swelling) Extremities: other (mod bilat LE swelling) Neurologic/Psychiatric: other (intubated and sedated - unable to cooperate with exam) Skin: other (red rash to upper thighs and lower abdomen) Results/Procedures: Labs Laboratory Tests 06/13/22 18:23: Glucometer 124H 06/14/22 00:07: Glucometer 129H 06/14/22 04:25: White Blood Count 8.5, Red Blood Count 5.70H, Hemoglobin 13.7, Hematocrit 47, Mean Corpuscular Volume 83, Mean Corpuscular Hemoglobin 24L, Mean Corpuscular Hemoglobin Concent 29L, Red Cell Distribution Width 16.5H, Platelet Count 248, Mean Platelet Volume 10.0, Immature Granulocyte % (Auto) 0, Neutrophils (%) (Auto) 71, Lymphocytes (%) (Auto) 15, Monocytes (%) (Auto) 11, Eosinophils (%) (Auto) 2, Basophils (%) (Auto) 1, Neutrophils # (Auto) 6.0, Lymphocytes # (Auto) 1.3, Monocytes # (Auto) 1.0, Eosinophils # (Auto) 0.2, Basophils # (Auto) 0.1, Immature Granulocyte # (Auto) 0.0, Sodium Level 149H, Potassium Level 3.5L, Chloride Level 103, Carbon Dioxide Level 32, Anion Gap 14, Blood Urea Nitrogen 29H, Creatinine 0.89, Estimat Glomerular Filtration Rate 107, BUN/Creatinine Ratio 33, Glucose Level 120H, Calcium Level 9.1, Corrected Calcium 9.7, Phosphorus Level 2.8, Magnesium Level 2.5H, Total Bilirubin 1.3H, Aspartate Amino Transf (AST/SGOT) 31, Alanine Aminotransferase (ALT/SGPT) 64H, Alkaline Phosphatase 118, Total Protein 7.0, Albumin 3.2 06/14/22 04:30: Blood Gas Puncture Site LT RAD, Blood Gas Patient Temperature 36.0, Arterial Blood pH 7.39, Arterial Blood Partial Pressure CO2 59H, Arterial Blood Partial Pressure O2 56L, Arterial Blood HCO3 35H, Arterial Blood Total CO2 37.3H, Arterial Blood Oxygen Saturation 92L, Arterial Blood Base Excess 9.9H, Hasmukh Test YES-POS, Blood Gas Ventilator Setting YES, Blood Gas Inspired Oxygen 75% Microbiology 06/07/22 Blood Culture - Final, Complete No growth 06/07/22 Gram Stain - Final, Complete 06/07/22 Sputum Culture - Final, Complete Usual upper respiratory tonny Laboratory Tests 06/13/22 03:25 06/14/22 04:25 A/P: Assessment: Respiratory failure likely multifactorial - probably partly related to acute diastolic CHF and obesity-hypoventilation syndrome - ?pneumonia/ARDS Acute diastolic CHF - MPI 06-02-[address] Phillip: Good exercise tolerance for a total of 5 minutes on Milan protocol, 7 METs, achieving 86 percent of maximum expected heart rate. Minimal nondiagnostic EKG changes with exercise returned to baseline during recovery. No arrhythmia was noted. Hypertensive response to exercise with peak blood pressure 204/112 return to baseline during recovery - Echocardiogram of 06-07-22 showed LVEF 55-60% Elevated liver enzymes - possibly hepatobiliary congestion d/t CHF - improving with aggressive diuresis HTN - controlled Obesity - BMI approx 47 Plan: * Remains on mech vent despite a good response to diuretics and significant improvement of edema. Chest x-ray remains abnormal. We recommend eval for RAHUL S. We recommend consideration of transfer to a tertiary care facility. I called Dr Danielle (primary attending) this am and discussed his case with her. TIFFANIE MONTANEZ MD FACP FACC CCDS Jun 14, 2022 12:40
[2022-06-14 14:52] VITALS: BP 103/67
--- NOTE | 2022-06-14 15:39 | Discharge Summary ---
Diagnosis/Chief Complaint Date of Admission Jun 06, 2022 at 13:14 Date of Discharge 06/14/22 Admission Diagnosis Admission Diagnosis Acute on chronic Respiratory Failure with hypoxia and hypercapnia Acute Diastolic CHF Flash Pulmonary Edema Anasarca Shock Liver Scrotal Edema Morbid obesity Discharge Diagnosis See above Discharge Summary-Simple/Stand Consultations Dr Amato: Cardiology Dr Walker: Urology eICU Discharge Physical Examination Allergies: Coded Allergies: No Known Drug Allergies (Unverified , 04/26/22) Vitals & I&Os Vital Sign - Last 12Hours Date Time Temp Pulse Resp B/P (MAP) Pulse Ox O2 Delivery O2 Flow Rate FiO2 06/14/22 15:00 82 18 102/64 (77) 94 Mechanical Ventilator 85.00 06/14/22 14:52 85 06/14/22 07:45 36.7 Intake and Output 06/14/22 00:00 Intake Total 1130 ml Output Total 525 ml Balance 605 ml General Appearance: Other (opens eyes to names and want to write on board, intubated) Respiratory: Other (diminished breath sounds with minimal air movement) Cardiovascular: Regular Rate, No Murmurs Abdominal: Normal Bowel Sounds, Soft, Other (scrotal edema (Improving)) Extremities: Other (2+ pitting edema bilaterally) Hospital Course See final discharge diagnosis. Radiology Reviewed NAME: TEO YOST [facility] REC#: [id number] PT STATUS: REG ER : 1975 PHYSICIAN: DIONICIO KELLY MD ADMIT DATE: 04/26/22/ER Signed Date of Exam:04/26/22 CT ANGIO CHEST W EXAMINATION: CT angiography of the chest. TECHNIQUE: Contrast enhanced thin section helical images were obtained through the chest with intravenous contrast timed for the optimal opacification of the arterial structures per CTA protocol. Post-processing, reconstructions and interpretation of angiographic images of the vessels was performed. 3D MIP reconstructions were performed and reviewed. All CT scans use one or more of the following dose optimizing techniques: automated exposure control, MA and/or KvP adjustment based on a patient size and exam type, or iterative reconstruction. HISTORY: SOB, hypoxic, positive dimer COMPARISON: None available. FINDINGS: Vascular: No filling defects within the pulmonary arteries. Thoracic aorta is normal in caliber. Thyroid: The thyroid is normal. Mediastinum: Heart size is normal without significant pericardial effusion. No suspicious lymphadenopathy. Lungs and airways: No consolidation or pneumothorax. There is atelectasis within the dependent lungs. Trace bilateral pleural effusions. The airways are normal. Upper abdomen: The subphrenic structures are normal. Musculoskeletal: Degenerative changes of the spine without suspicious osseous lesion or compression fracture. IMPRESSION: 1. No findings of pulmonary embolus or other acute abnormality in the chest. 2. Trace bilateral pleural effusions with adjacent atelectasis. Dictated by: Dictated on workstation # [id number] Dict: 04/26/22 1145 Trans: 04/26/22 1156 CVB [id number] Interpreted by: FARTUN GREENBERG DO Electronically signed by: FARTUN GREENBERG DO 04/26/22 1156 NAME: TEO YOST [facility] REC#: [id number] PT STATUS: ADM IN : 1975 PHYSICIAN: SOLO MAYO DO ADMIT DATE: 06/06/22/ICU Signed Date of Exam:06/07/22 CHEST 1 VIEW, AP/PA ONLY EXAMINATION: Chest 1 view HISTORY: Tube placement COMPARISON: 06/06/2022 FINDINGS: Heart size and pulmonary vasculature are stable. Increasing interstitial and airspace opacities throughout both lungs compared to prior exam. May be a trace left pleural effusion. Interval placement of an endotracheal tube above the kaleb. Enteric catheter is present coursing below the diaphragm. No pneumothorax. The osseous structures are intact. IMPRESSION: 1. Increasing airspace opacities throughout both lungs compared to prior exam. 2. Interval placement of an endotracheal tube and enteric catheter. Dictated by: Dictated on workstation # [id number] Dict: 06/07/22 0604 Trans: 06/07/22 0759 LUIS [id number] Interpreted by: FARTUN GREENBERG DO Electronically signed by: FARTUN GREENBERG DO 06/07/22 0759 Discussion & Recommendations 46 yo M that presented with acute on chronic respiratory failure that required ICU intervention and intubation. Patient was thought to be in flash pulmonary edema and was aggressively diuresed with >30L. With aggressive diuresis patient still was unable to be extubated. Respiratory failure is thought to be multifactoral ?MYRON/obesity hypoventation syndrome. Echo done shows preserved EF with diastolic dysfunction. During admission patient did not have elevated WBC and had minimal elevation of procalcitonin and was monitored off antibiotics. Over the weekend his CXRs worsened and required increase in PEEP which then caused hypotension and he was started on levophed. Spoke with Dr Amato this AM and agreed that patient would benefit from [facility] and transfer was intiated. [facility]. Discharge Condition at discharge Transfer to [facility] Instructions to patient/family Please see electronic discharge instructions given to patient. Discharge Medications Reviewed and agree with Discharge Medication list on patient's Discharge Instruction sheet YEFRI YANES MD Jun 14, 2022 15:39
[2022-06-14 19:10] VITALS: BP 117/78
[2022-06-14 20:44] VITALS: BP 103/67
== END 2022-06-14 20:55 | disposition short-term general hospital (02) | DRG 207 ==
LOC: EDUNIT# 11:02 → ER 11:05 → ICU 13:14
PROVIDERS: ADMIT Internal Medicine; ATTEND Family Medicine
PROC: 5A09357 Assistance with Respiratory Ventilation, Less than 24 Consecutive Hours, Continuous Positive Airway Pressure (ICD-10-PCS; 2022-06-06)
PROC: 5A1955Z Respiratory Ventilation, Greater than 96 Consecutive Hours (ICD-10-PCS; principal; 2022-06-07)
PROC: 0BH17EZ Insertion of Endotracheal Airway into Trachea, Via Natural or Artificial Opening (ICD-10-PCS; 2022-06-07)
PROC: 03HY32Z Insertion of Monitoring Device into Upper Artery, Percutaneous Approach (ICD-10-PCS; 2022-06-07)
DX: E66.2 Morbid (severe) obesity with alveolar hypoventilation (principal); J96.21 Acute and chronic respiratory failure with hypoxia; I21.A1 Myocardial infarction type 2; J96.22 Acute and chronic respiratory failure with hypercapnia; I50.31 Acute diastolic (congestive) heart failure; K72.00 Acute and subacute hepatic failure without coma; E87.2 Acidosis; E87.3 Alkalosis; E87.0 Hyperosmolality and hypernatremia; Z68.42 Body mass index [BMI] 45.0-49.9, adult; I11.0 Hypertensive heart disease with heart failure; Z91.19 Patient's noncompliance with other medical treatment and regimen; N43.3 Hydrocele, unspecified; Z20.822 Contact with and (suspected) exposure to COVID-19
CPT/HCPCS: 36415; 36569; 51702; 71045; 76870; 76937; 80048; 80053; 80061; 80076; 81000; 82805; 82947; 83605; 83735; 83874; 83880; 84100; 84145; 84443; 84478; 84484; 85007; 85025; 85027; 85610; 85730; 87040; 87070; 87081; 87205; 87636; 93005; 93041; 93306; 94002; 94003; 94640; 94799; 96374